=== PATIENT | female | born 1960 | race Caucasian/White ===

== ENCOUNTER 2020-03-31 16:35 | Outpatient (CLI) | payer MEDICARE, MEDICAID, SELFPAY ==
--- NOTE | ~2020-03-31 | CT_ITS ---
EXAMINATION:CT lung screening DATE: 03/31/2020 16:58 INDICATION: Personal history of nicotine dependence. Smoker who quit 2 years ago with 37 pack year hi story. TECHNIQUE: Computed tomography (CT) of the chest was performed without intravenous contrast. Automate d exposure control and iterative reconstruction technique were employed. The dose-length product (DLP ) was 450.75 mGy-cm. COMPARISON: None. FINDINGS: There is mild atelectasis bilaterally. There is a 4 mm nodule in right lower lobe. Calcifie d subcarinal lymph nodes are consistent with old granulomatous disease. No pleural effusion. The hear t size is normal. There are coronary artery calcifications. No pericardial effusion. There is diffuse hepatic steatosis. There are changes of cholecystectomy. There is mild thoracic spondylosis. IMPRESSION: 1. Lung-RADS category 2: Benign appearance or behavior. Continue annual screening with noncontrast lo w-dose chest CT in 12 months. Reviewed, dictated and finalized at location A. IMPRESSION: 1. Lung-RADS category 2: Benign appearance or behavior. Continue annual screeni ng with noncontrast low-dose chest CT in 12 months.
== END 2020-03-31 16:36 | disposition home or self-care (01) ==
PROVIDERS: PCP Emergency Medicine; Visit Provider Emergency Medicine
DX: Z12.2 Encounter for screening for malignant neoplasm of respiratory organs (principal); Z87.891 Personal history of nicotine dependence
CPT/HCPCS: G0297

== ENCOUNTER 2020-06-23 16:43 | Outpatient (CLI) | payer MEDICARE, SELFPAY ==
--- NOTE | ~2020-06-23 | MM_ITS ---
EXAMINATION: MM screening anu BI w luana HISTORY: Screening TECHNIQUE: Craniocaudal and mediolateral oblique 3-D tomosynthesis images were obtained and synthetic 2-D images were generated. CAD analysis was submitted and interpreted. COMPARISON: Comparison to multiple prior studies sequentially, with oldest reviewed study dated 05/2014. BREAST PARENCHYMAL COMPOSITION: There are scattered areas of fibroglandular density. FINDINGS: There is no evidence of suspicious mass, calcification, or architectural distortion to sugg est malignancy in either breast. There has been no suspicious interval change. IMPRESSION: 1. No mammographic evidence of malignancy. 2. Recommend routine screening mammography in one year. BI-RADS Category 1: Negative Reviewed, dictated and finalized at location A.
== END 2020-06-23 16:44 | disposition home or self-care (01) ==
LOC: ANHIMG 16:45
PROVIDERS: PCP Emergency Medicine; Visit Provider Emergency Medicine
DX: Z12.31 Encounter for screening mammogram for malignant neoplasm of breast (principal)
CPT/HCPCS: 77063; 77067

== ENCOUNTER 2020-08-05 13:24 | Outpatient (CLI) | payer MEDICARE, SELFPAY ==
--- NOTE | ~2020-08-05 | DEXA_ITS ---
Bone Density Report Name: Jade Hunter Age: 60 Sex: Female Ethnicity: White Date of : 1960 Indication: postmenopausal; height loss; Referring Provider: ERON TORRES Study: Bone densitometry was performed. Exam Date: August 05, 2020 Accession number: [id number] Bone Density: Region BMD T-score Z-score Classification AP Spine (L1-L4) 1.000 -0.4 1.0 Normal Femoral Neck (Left) 0.651 -1.8 -0.5 Osteopenia Total Hip (Left) 0.936 0.0 0.9 Normal Total Hip Bilateral Avg 0.916 -0.2 0.8 Normal Femoral Neck (Right) 0.647 -1.8 -0.5 Osteopenia Total Hip (Right) 0.895 -0.4 0.6 Normal World Health Organization criteria for BMD impression classify patients as: Normal (T-score at or above -1.0), Osteopenia (T-score between -1.0 and -2.5), or Osteoporosis (T-score at or below -2.5). 10-year Fracture Risk(1): Major Osteoporotic Fracture 7.8% Hip Fracture 0.8% Reported Risk Factors: [place] (), Neck BMD=0.647, BMI=42.2 (1) FRAX(R) Version 3.08. Fracture probability calculated for an untreated patient. Fracture probability may be lower if the patient has received treatment. Previous Exams: Region Exam Age BMD T-score BMD Change BMD Change Date g/cm2 vs Baseline vs Previous AP Spine(L1-L4) 08/05/2020 60 1.000 -0.4 -0.030(-2.9%)# -0.030(-2.9%)# 04/21/2015 54 1.030 -0.2 Total Hip(Left) 08/05/2020 60 0.936 0.0 -0.083(-8.1%)# -0.083(-8.1%)# 04/21/2015 54 1.019 0.6 Total Hip(Right) 08/05/2020 60 0.895 -0.4 -0.105(-10.5%) -0.105(-10.5%) 04/21/2015 54 1.000 0.5 *Denotes significance at 95% confidence level, LSC for AP Spine = 0.022 g/cm2, LSC for Total Hip = 0.027 g/cm2 Clinical Information Provided by Patient: Patient maximum height was 67 Menopause Age: 53 Does not regularly consume dairy products Drinks caffeinated beverages Onset of menses at age 16 Number of children 3 Impression: The patient has low bone mass, based on the Left Femoral Neck T-score. The patient has an estimated ten-year risk of hip fracture of 0.8% and an estimated ten-year risk of major fracture of 7.8%, based on the WHO FRAX algorithm. No significant bone loss was observed. Discussion: BONE DENSITY IS LOW AT ONE OR MORE SKELETAL SITES. This patient's lowest T-score is low at one or more skeletal sites. It meets the World Health Organization's (WHO) criteria for ?low bone mass? (T-score between -1.0 and -2.5). The patient's 10-year risk of
== END 2020-08-05 13:25 | disposition home or self-care (01) ==
PROVIDERS: PCP Emergency Medicine; Visit Provider Emergency Medicine
DX: Z78.0 Asymptomatic menopausal state (principal); M85.852 Other specified disorders of bone density and structure, left thigh; M85.851 Other specified disorders of bone density and structure, right thigh
CPT/HCPCS: 77080

== ENCOUNTER 2021-08-24 09:21 | Outpatient (CLI) | payer MEDICARE, SELFPAY ==
--- NOTE | ~2021-08-24 | MM_ITS ---
EXAMINATION: MM screening anu BI w luana HISTORY: Screening mammogram TECHNIQUE: Craniocaudal and mediolateral oblique 3-D tomosynthesis images were obtained and synthetic 2-D images were generated. CAD analysis was submitted and interpreted. COMPARISON: 06/23, 01/06/2019 bilateral screening mammogram examinations] BREAST PARENCHYMAL COMPOSITION: The breasts are almost entirely fatty. FINDINGS: There is no evidence of suspicious mass, calcification, or architectural distortion to sugg est malignancy in either breast. There has been no suspicious interval change. IMPRESSION: 1. No mammographic evidence of malignancy. 2. Recommend routine screening mammography in one year. BI-RADS Category 1: Negative Reviewed, dictated and finalized at location A. [employer]
== END 2021-08-24 09:22 | disposition home or self-care (01) ==
LOC: ANHIMG 09:24
PROVIDERS: PCP Emergency Medicine; Visit Provider Emergency Medicine
DX: Z12.31 Encounter for screening mammogram for malignant neoplasm of breast (principal)
CPT/HCPCS: 77063; 77067

== ENCOUNTER 2022-12-25 15:10 | Outpatient (CLI) | payer MEDICARE, SELFPAY ==
--- NOTE | ~2022-12-25 | MM_ITS ---
EXAMINATION: MM screening anu BI w luana HISTORY: Screening mammogram TECHNIQUE: Craniocaudal and mediolateral oblique 3-D tomosynthesis images were obtained and synthetic 2-D images were generated. CAD analysis was submitted and interpreted. COMPARISON: 08/24/2021, 06/23/2020, 01/06/2019 bilateral screening mammogram examinations BREAST PARENCHYMAL COMPOSITION: The breasts are almost entirely fatty. FINDINGS: There is no evidence of suspicious mass, calcification, or architectural distortion to sugg est malignancy in either breast. There has been no suspicious interval change. IMPRESSION: 1. No mammographic evidence of malignancy. 2. Recommend routine screening mammography in one year. BI-RADS Category 1: Negative Reviewed, dictated and finalized at location A.
== END 2022-12-25 15:11 | disposition home or self-care (01) ==
LOC: ANHIMG 15:13
PROVIDERS: PCP Emergency Medicine; Visit Provider Emergency Medicine
DX: Z12.31 Encounter for screening mammogram for malignant neoplasm of breast (principal)
CPT/HCPCS: 77063; 77067

== ENCOUNTER 2023-04-13 08:26 | Outpatient (CLI) | payer MEDICARE, SELFPAY ==
--- NOTE | ~2023-04-13 | NM_ITS ---
EXAMINATION: NM daniel stress w perfusion DATE: 04/13/2023 12:08 INDICATION: Chest pain TECHNIQUE: Rest images were obtained following intravenous administration of 10.5 mCi Tc99m tetrofosm in (Myoview). The patient was infused intravenously with Lexiscan (Regadenoson). Then, 31.7 mCi Tc99m tetrofosmin (Myoview) was administered intravenously, and stress images were obtained. Data was yin nstructed into short axis and horizontal and vertical long axis SPECT images. Gated SPECT images were also obtained. COMPARISON: None. FINDINGS: There is no definite reversible or fixed perfusion abnormality to suggest ischemia or infar ction. There is normal left ventricular chamber size, wall motion and ejection fraction. Left ventr icular ejection fraction measures 65%. IMPRESSION: 1. Normal myocardial perfusion at rest and during stress. 2. Left ventricular ejection fraction measuring 65%. Reviewed, dictated and finalized at location A.
--- NOTE | 2023-04-13 08:33 | ECHO_ITS ---
Patient Info Name: Jade Hunter Age: 62 years : 1960 Gender: Female Ht: 64 in Wt: 230 lbs BSA: 2.22 m2 HR: 71 bpm BP: 101 / 68 mmHg Technical Quality: Fair Exam Date: 04/13/2023 8:47 AM Exam Location: [facility] Pulmonary Patient Status: Outpatient Admit Date: 04/13/2023 Staff Ordering Physician: Mark Carolina DO Automatic Riveting Machine Operator: Maine Clemente RDCS Attending Provider: Mark Carolina DO Referring Physician: Ge SARMIETNO; Exam Type: CA echo doppler color flow Study Info Indications R06.09 - Other forms of dyspnea Complete two-dimensional, color flow and Doppler transthoracic echocardiogram is performed. Summary 1. Complete two-dimensional, color flow and Doppler transthoracic echocardiogram is performed. 2. Left ventricular chamber dimension is mildly enlarged. 3. Left ventricular systolic function is preserved, estimated at 50-55%. 4. The left ventricular diastolic function is grade I diastolic dysfunction. 5. E/e' 8 is minimally elevated. 6. Global longitudinal strain is abnormal at -14.5%. 7. No pulmonary hypertension, estimated pulmonary arterial systolic pressure is 33 mmHg. Left Ventricle E/e' 8 is minimally elevated. Left ventricular systolic function is preserved, estimated at 50-55%. Global longitudinal strain is abnormal at -14.5%. Left ventricular chamber dimension is mildly enlarged. The left ventricular diastolic function is grade I diastolic dysfunction. Right Ventricle Right ventricular systolic function is normal and with normal TAPSE 2.0 cm. Right ventricular chamber dimension is normal. Left Atria Left atrial chamber dimension is normal. Right Atria Right atrial chamber dimension is normal. Aortic Valve The aortic valve is trileaflet. There is no aortic valve stenosis. There is no aortic valve regurgitation. Pulmonic Valve There is no pulmonic regurgitation. Mitral Valve There is no mitral valve stenosis. There is no mitral valve regurgitation. Tricuspid Valve There is no tricuspid valve regurgitation. No pulmonary hypertension, estimated pulmonary arterial systolic pressure is 33 mmHg. Pericardium/Pleural There is no pericardial effusion. Inferior Vena Cava Normal inferior vena cava with >50% collapse upon inspiration consistent with normal right atrial pressure, 5 mmHg. Aorta The aortic root size at the sinus of Valsalva is normal. Left Ventricular Outflow Tract Name Value Normal LVOT 2D LVOT Diameter 2.0 cm LVOT Doppler LVOT Peak Gradient 4 mmHg LVOT Mean Gradient 2 mmHg LVOT VTI 23 cm LVOT VTI/AV VTI Ratio 0.9 LVOT Stroke Volume 68 ml LVOT CO 4.4 l/min LVOT CI 2.0 l/min/m2 Pulmonic Valve Name Value Normal RVOT Doppler RVOT Peak Gradient 2 mmHg PV Doppler -
--- NOTE | 2023-04-13 08:33 | EST_ITS ---
Patient Info Name: Jade Hunter Age: 62 years : 1960 Gender: Female Ht: 64 in Wt: 230 lbs BSA: 2.22 m2 HR: 68 bpm BP: 108 / 73 mmHg Heart Rhythm: Sinus Rhythm Exam Date: 04/13/2023 10:41 AM Exam Location: [facility] Stress Patient Status: Outpatient Admit Date: 04/13/2023 Staff Ordering Physician: Mark Carolina DO Attending Provider: Mark Carolina DO Exercise Technologist: Aisha Hayes CT Exercise Physician: Mark Carolina DO Exam Type: CA stress daniel w NM Study Info Indications R07.89 - Other chest pain A regadenoson stress test was performed. Summary 1. 1. Negative lexiscan stress test for ischemic ST changes by ECG criteria. 2. 2. Stable hemodynamics throughout the test. 3. 3. Nuclear scan to follow and will be reported separately. Please correlate with it. 4. 4. Patient informed of the above results. Protocol: Lexiscan Stress ECG Details Stage: REST Duration (min): 3 min : 17 sec HR (bpm): 73 SBP (mmHg): 108 DBP (mmHg): 73 Stage: REST Duration (min): 8 min : 31 sec HR (bpm): 72 SBP (mmHg): 108 DBP (mmHg): 73 Stage: STAGE 1 Duration (min): 0 min : 59 sec HR (bpm): 83 SBP (mmHg): 106 DBP (mmHg): 68 Stage: RECOVERY Duration (min): 1 min : 0 sec HR (bpm): 90 SBP (mmHg): 106 DBP (mmHg): 68 Stage: RECOVERY Duration (min): 2 min : 0 sec HR (bpm): 86 SBP (mmHg): 106 DBP (mmHg): 68 Stage: RECOVERY Duration (min): 3 min : 0 sec HR (bpm): 86 SBP (mmHg): 108 DBP (mmHg): 65 Stage: RECOVERY Duration (min): 3 min : 1 sec HR (bpm): 86 SBP (mmHg): 108 DBP (mmHg): 65 Rest HR: 72 bpm Peak HR: 93 bpm Rest Sys BP: 108 mmHg Peak Sys BP: 108 mmHg Max Pred HR: 158 bpm % Max Pred HR: 59 % Target HR: 134 bpm Max RPP: 10,044 bpm*mmHg Termination Reason: Completed protocol Cardiac Symptoms: None Total Time: 1 min : 0 sec Rest [place] BP: 73 mmHg Peak [place] BP: 65 mmHg Total Dose: 0.4 mg Resting ECG Sinus rhythm. Stress ECG No ST changes. Arrhythmias None. Report Signatures
== END 2023-04-13 08:27 | disposition home or self-care (01) ==
LOC: ANHCARD 08:28
PROVIDERS: PCP Emergency Medicine; Visit Provider Internal Medicine Cardiovascular Disease
DX: R07.9 Chest pain, unspecified (principal)
CPT/HCPCS: 78452; 93017; 93306; A9502; J2785

== ENCOUNTER 2025-02-26 10:39 | Outpatient (CLI) | payer MEDICARE, MEDICAID, SELFPAY ==
--- NOTE | ~2025-02-26 | CT_ITS ---
CT Scan of the Chest without Contrast: Clinical Indication: Lung cancer screening, nicotine dependence Technique: Contiguous sections were acquired throughout the chest without intravenous contrast. Dose reduction technique was used on this scan by utilizing automated exposure control and iterative recon struction technique. The dose-length product (DLP) was 443.30 mGy-cm. Findings: There is no evidence of any significant mediastinal, hilar or axillary lymphadenopathy. The mediastin al soft tissues appear normal. There is no evidence of pleural or pericardial effusion. The lungs are clear. No pulmonary nodules or infiltrates are noted. Images through the upper abdomen reveal no abnormalities. Impression: Lung RADS 1: Negative. 12 month follow-up screening CT advised. Reviewed, dictated and finalized at location . Impression: Lung RADS 1: Negative. 12 month follow-up screening CT advised.
--- OUTSIDE RECORDS SUMMARY | 2025-02-26 10:45 | XMS_ITS | Clinical Summary ---
Author Organization [address] Address [address] [place] [id number] Care Team Providers Care Cinder Block Maker Name Role Phone Esau Pascual MD Primary Care Provider + [phone] Veronica Minaya MD Unavailable [phone] Allergies No known active allergies Medications ALPRAZolam (XANAX) 1 mg tablet Take 1 tablet (1 mg total) by mouth 2 (two) times a day 0 Active gabapentin (NEURONTIN) 600 mg tablet Take 1 tablet (600 mg total) by mouth daily before breakfast 6 Active HYDROcodone-acet aminophen (NORCO) 10-325 mg per tablet Take by mouth every 8 hours 6 Active lisinopriL (PRINIVIL,ZESTRI L) 20 mg tablet Take 1 tablet (20 mg total) by mouth daily 0 Active omeprazole (PriLOSEC) 40 mg capsule Take 1 tablet by mouth daily 6 Active sertraline (ZOLOFT) 100 mg tablet Take 1 tablet (100 mg total) by mouth daily 6 Active OneTouch Verio Flex meter miscIndications: Type 2 diabetes mellitus with hyperglycemia, with long-term current use of insulin ([facility]) One glucometer 1 each 3 Active AOMiTouch Verio test strips stripIndications :Type 2 diabetes mellitus with hyperglycemia, with long-term current use of insulin ([facility]) Check 2 x daily 100 each 11 3 Active AOMiTouch Delica Lancets 30 gauge miscIndications: Type 2 diabetes mellitus with hyperglycemia, with long-term current use of insulin ([facility]) Check blood sugar two times a day or as directed 100 each 11 3 Active ergocalciferol (VITAMIN D) 50,000 unit capsule TAKE 1 CAPSULE BY MOUTH EVERY SUNDAY AT 9AM 12 capsule 11 3 Active blood-glucose transmitter (Dexcom G6 Transmitter) deviceIndication s:Type 2 diabetes mellitus with hyperglycemia, with long-term current use of insulin ([facility]) Change every 90 days 1 each 3 3 Active Additional Information Patient not taking.Reported on 07/01/2024 pen needle, diabetic (Pen Needle) 31 gauge x 5/16 needleIndication s:Type 2 diabetes mellitus with hyperglycemia, with long-term current use of insulin ([facility]) Use to inject 1 time daily as directed 100 each 11 4 Active atorvastatin (LIPITOR) 40 mg tabletIndication s:Hyperlipidemia associated with type 2 diabetes mellitus (HCC) TAKE ONE TABLET BY MOUTH DAILY AT 5 PM 90 tablet 3 4 Active rosuvastatin (CRESTOR) 20 mg tablet 4 Active LANTUS 100 unit/mL (3 mL) pen for injectionIndicat ions:Type 2 diabetes mellitus with hyperglycemia, with long-term current use of insulin ([facility]) INJECT 35 UNITS UNDER THE SKIN DAILY 30 mL 6 4 07/14/20 25 Active blood-glucose meter,continuous (Dexcom G7 Breeder Service Technician) miscIndications: Type 2 diabetes mellitus with hyperglycemia, with long-term current use of insulin ([facility]) Change every 90 days 1 each 4 Active glimepiride (AMARYL) 2 mg tabletIndication s:Type 2 diabetes mellitus with hyperglycemia, with long-term current use of insulin ([facility]) Take 1 tablet (2 mg total) by mouth 2 (two) times a day with meals 180 tablet 3 5 10/21/19 26 Active blood-glucose sensor deviceIndication s:Type 2 diabetes mellitus with hyperglycemia, with long-term current use of insulin ([facility]) Change every 10 day s 3 each 5 Active empagliflozin (Jardiance) 25 mg tabletIndication s:Type 2 diabetes mellitus with hyperglycemia, with long-term current use of insulin ([facility]) Take one tablet by mouth daily 90 tablet 3 5 Active Active Problems Problem Noted Date Diagnosed [...] months Assessment & Plan (11/01/2023 10:02 AM EMPLOYEE COUNSELOR): Chronic, improving control A1c 5.7% Not wearing [...] MALLIKA Daily foot care Advise to see Coach Wirer for foot callus Follow up in 6 months Assessment & Plan (02/23/2022 12:31 PM CDT): Chronic problem, not at goal. Increase Ozempic to 1 mg. Continue same other medications. She is going to start walking with her granddaughter. Update routine labs today. Assessment & Plan (09/15/2021 3:28 PM EMPLOYEE COUNSELOR): Chronic condition, improved. Encouraged her to continue [...] on diet - check blood sugars at [facility] - make an eye exam soon - follow up in 3 months Assessment & Plan (08/16/2020 12:21 PM EMPLOYEE COUNSELOR): Chronic, uncontrolled , improving control since 12/2019 A1c today - 7.7 % - discussed about DM type 2, - patho physiology, short and long term care social worker complications of uncontrolled DM, diet and exercise [...] 08/16/2020 Assessment & Plan (11/01/2023 10:03 AM EMPLOYEE COUNSELOR): Pt on Vitamin D replacement therapy Recheck levels, further plans based on it Assessment & Plan (02/23/2022 12:29 PM CDT): Update vitamin D level. Assessment & Plan (01/17/2021 9:12 PM CDT): Restart taking Vitamin D replacement therapy Recheck levels, further plans based on it Assessment & Plan (08/16/2020 12:20 PM EMPLOYEE COUNSELOR): Very low vitamin D 25 (OH) levels In december 2019 Start pt on replacement therapy Hypertension associated with diabetes 08/16/2020 Assessment & Plan (07/01/2024 2:22 PM CDT): Chronic, well controlled Continue lisinopril Assessment & Plan (11/01/2023 10:02 AM EMPLOYEE COUNSELOR): Chronic, well controlled Continue current medication regimen Assessment & Plan (01/15/2023 12:17 PM CDT): Chronic, well controlled Continue current medication regimen Assessment & Plan (02/23/2022 12:28 PM CDT): Controlled on current medications, no changes. Assessment & Plan (09/15/2021 3:24 PM EMPLOYEE COUNSELOR): Controlled on current medications, no changes. Assessment & Plan (05/09/2021 2:53 PM CDT): Chronic, well controlled Continue current medication regimen Assessment & Plan (01/17/2021 9:10 PM CDT): Chronic, well controlled Continue current medication regimen Assessment & Plan (08/16/2020 12:19 PM EMPLOYEE COUNSELOR): Chronic, well controlled Continue current medication regimen Hyperlipidemia associated with type 2 diabetes no lutz 08/16/2020 Assessment & Plan (07/01/2024 2:21 PM CDT): C/w Atorvastatin 40 mg oral daily Assessment & Plan (11/01/2023 10:03 AM EMPLOYEE COUNSELOR): C/w Atorvastatin 40 mg oral daily Assessment & Plan (01/15/2023 12:17 PM CDT): C/w Atorvastatin 40 mg oral daily Assessment & Plan (02/23/2022 12:28 PM CDT): Chronic problem. On statin therapy, no changes. Update lipid panel. Assessment & Plan (09/15/2021 3:24 PM EMPLOYEE COUNSELOR): Chronic problem. On statin therapy, no changes. Assessment & Plan (05/09/2021 2:53 PM CDT): C/w Atorvastatin 40 mg oral daily Assessment & Plan (01/17/2021 9:09 PM CDT): Reviewed lipid panel results today LLD above goal Change simvastatin to Atorvastatin 40 mg oral daily Assessment & Plan (08/16/2020 12:22 PM EMPLOYEE COUNSELOR): On statin therapy Tolerating well Morbid obesity [...] weekly Assessment & Plan (11/01/2023 10:03 AM EMPLOYEE COUNSELOR): Chronic, worsening Counseled on diet and exercise [...] weekly Assessment & Plan (08/16/2020 12:22 PM EMPLOYEE COUNSELOR): Chronic, worsening Discussed about healthy lifestyle habits [...] plans Assessment & Plan (08/16/2020 12:27 PM EMPLOYEE COUNSELOR): Reviewed pt last thyroid labs from Low [...] Increase Ozempic. Body mass index 40.0-44.9, adult ([facility]) 02/23/2022 07/01/2024 Encounters Date Type Department Care Team Description 12/11/2024 Telephone [facility] Diabetes and Endocrinology [address] [place] [phone] Veronica Minaya MD [facility] 12/08/2024 Telephone [facility] Diabetes and Endocrinology [address] [place] [phone] Veronica Minaya MD refill request from Last 3 Months Immunizations Immunization Administration [...] on file Legal Sex Female 1:58 AM EMPLOYEE COUNSELOR Gender Identity Not on file Sexual Orientation [...] 1:12 PM CDT Height 162.6 cm (5' 4 ) 07/01/2024 1:12 PM CDT Body Mass Index [...] 2010 Depression Screening 05/09/2022 05/09/2021, 01/17/2021, 08/16/2020 Albumin Creatinine Ratio, Urine 11/01/2024 11/01/2023, 10/23/2022, 10/23/2022, Additional history exists Lipid Panel 11/01/2024 11/01/2023, 01/0 06/2023, 05/16/2022, Additional history exists eGFR 11/01/2024 11/01/2023, 01/0 06/2023, 05/16/2022, Additional history exists Hemoglobin A1C 12/29/2024 07/01/2024, 10/15, 01/15/2023, Additional history exists Dilated Eye Exam 03/05/2025 03/05/2024 Influenza Vaccine (Season Ended) 2025 09/02/2015, 07/29/2013, 05/15/2010 Foot Exam 07/01/2025 07/01/2024, 10/15, 01/15/2023, Additional history exists Procedures Procedure Name Priority Date/Time Associated Diagnosis Comments POCT HEMOGLOBIN A1C Routine 07/01/2024 1 :14 PM CDT Type 2 diabetes mellitus with hyperglycemia, with long-term current use of insulin (HCC) DIABETES EYE EXAM Routine 03/05/2024 9:30 AM CDT EGFR Routine 11/01/2023 10:07 AM EMPLOYEE COUNSELOR Type 2 diabetes mellitus with hyperglycemia, with long-term current use of insulin (HCC) Hypertension associated with diabetes (HCC) Hyperlipidemia associated with type 2 diabetes mellitus (HCC) LIPID PANEL Routine 11/01/2023 10:07 AM EMPLOYEE COUNSELOR Type 2 diabetes mellitus with hyperglycemia, with long-term current use of insulin (HCC) Hyperlipidemia associated with type 2 diabetes mellitus (HCC) ALBUMIN CREATININE RATIO, URINE Routine 11/01/2023 10:07 AM EMPLOYEE COUNSELOR Type 2 diabetes mellitus with hyperglycemia, with [...] - Final * eGFR (11/01/2023 10:07 AM EMPLOYEE COUNSELOR) eGFR 76 mL/min/1. 73 m2 GATITO HIRSCH [...] reviewed 2021. Blood 11/01/2023 10:0 7 AM EMPLOYEE COUNSELOR 11/01/2023 12:27 PM EMPLOYEE COUNSELOR Veronica Diaz MD LAB BLOOD ORDERABLE S Final Result Performing Organization Address [facility] Co de Phone Number GATITO [address] [address] [place] [address] * Albumin Creatinine Ratio, Urine (11/01/2023 10:07 AM EMPLOYEE COUNSELOR) Albumin Ur <12.0 mg/L G[facility]ITO Comment: Interpretive Data No reference range established. Current interpretive data was last revised 2019. Creatinine Ur 115.3 mg/dL G[facility]O Comment: Interpretive Data No reference range established. Current interpretive data was last revised 2019. Albumin Creatinine Ratio, Ur <10 1 - 29 mg/g [facility] Urine 11/01/2023 10:0 7 AM EMPLOYEE COUNSELOR 11/01/2023 12:17 PM EMPLOYEE COUNSELOR Veronica Diaz MD LAB URINE ORDERABLE S Final Result Performing Organization Address [facility] Co de Phone Number GATITO [address] [place] [address] * Lipid panel (11/01/2023 10:07 AM EMPLOYEE COUNSELOR) Cholesterol 124 30 - 199 mg/dL GATITO [...] Pediatrics 2011;128:S213 2. NCEP Expert Panel. Circulation 2003;110:227 Current Interpretive Data was last revised on [...] Pediatrics 2011;128:S213 2. NCEP Expert Panel. Circulation 2003;110:227 Current Interpretive Data was last revised on 2018. HDL 45 >=40 mg/dL G[facility]ITO Comment: Interpretive Data Ages < or = 19 years Acceptable: >45 mg/dL Borderline low: 40-45 mg/dL Low: <40 mg/dL Ages > or = 20 years Desirable: >or= 60 mg/dL Low: <40 mg/dL Literature References: 1. Expert Panel on Integrated Guidelines for Cardiovascular Health and Risk Reduction in Children and Adolescents. Pediatrics 2011;128:S213 2. NCEP Expert Panel. Circulation 2003;110:227 Current Interpretive Data was last revised on 2018. LDL, calculated 56 <=129 mg/dL G[facility]O Comment: Interpretive Data Ages < [...] GATITO HIRSCH Blood 11/01/2023 10:0 7 AM EMPLOYEE COUNSELOR 11/01/2023 12:17 PM EMPLOYEE COUNSELOR us Harleyja Joe Diaz MD LAB BLOOD ORDERABLE S Final Result GATITO HIRSCH [id number] [place] [address] from Last 3 Months or Most Recently Relevant to Health Maintenance [place] [address] [place] [address] Care Teams Cinder Block Maker Relationship Specialty Start Date End Date Esau Pascual MD PCP - General 05/01/11 [place] [id number] [address] [facility] [address] [place] [address] Consulting Physician Endocrinology 03/07/21
--- OUTSIDE RECORDS SUMMARY | 2025-02-26 10:45 | XMS_ITS | Clinical Summary ---
Author Organization [facility] Address [address] [place] [address] Phone Care Team Providers Care Inspector Watch Train Name Role Phone Esau Pascual Primary Care Provider [phone] Allergies No known active allergies Medications ALPRAZolam [...] 1:15 PM CDT Height 167.6 cm (5' 6 ) 04/09/2019 1:15 PM CDT Body Mass Index [...] of 2) 2010 Influenza Immunization (#1) 2024 07/29/2013 SARS-COV-2 Immunization ( - 2023-25 season) 2024 Respiratory Syncytial Virus (RSV) Immunization [...] to complete this topic Insurance MEDICARE C [employer] Care Teams Inspector Watch Train Relationship Specialty Start Date End Date Ankur Esua [address] [place] [address] PCP - General Family Medicine 02/27/19
--- OUTSIDE RECORDS SUMMARY | 2025-02-26 10:45 | XMS_ITS | Referral Summary ---
Author Organization [address] Address [address] [place] [phone] Care Team Providers Care Senior Ux Designer Name Role Phone Esau Pascual MD Primary Care Provider + [phone] Veronica Minaya MD Unavailable + [phone] Encounters Date Type Department Care Team Description 12/11/2024 Telephone [facility] Diabetes and Endocrinology [address] [place] [phone] Veronica Minaya MD [facility] 12/08/2024 Telephone [facility] Diabetes and Endocrinology [address] [place] [phone] Veronica Minaya MD refill request from Last 3 Months Allergies No known [...] mg total) by mouth daily 6 Active Jack ErwinToQyuki Verio Flex meter miscIndications: Type 2 diabetes mellitus with hyperglycemia, with long-term current use of insulin ([facility]) One glucometer 1 each 3 Active Jack ErwinTouch Verio test strips stripIndications :Type 2 diabetes mellitus with hyperglycemia, with long-term current use of insulin ([facility]) Check 2 x daily 100 each 3 Active Jack ErwinTouch Delica Lancets 30 gauge miscIndications: Type 2 diabetes mellitus with hyperglycemia, with long-term current use of insulin ([facility]) Check blood sugar two times a day or as directed 100 each 11 3 Active ergocalciferol (VITAMIN D) 50,000 unit capsule TAKE 1 CAPSULE BY MOUTH EVERY SUNDAY AT 9AM 12 capsule 11 3 Active blood-glucose transmitter (Dexcom G6 Transmitter) deviceIndication s:Type 2 diabetes mellitus with hyperglycemia, with long-term current use of insulin ([facility]) Change every 90 days 1 each 3 3 Active Additional Information Patient not taking.Reported on 07/01/2024 pen needle, diabetic (Pen Needle) 31 gauge x 5/16 needleIndication s:Type 2 diabetes mellitus with hyperglycemia, with long-term current use of insulin ([facility]) Use to inject 1 time daily as directed 100 each 4 Active atorvastatin (LIPITOR) 40 mg tabletIndication s:Hyperlipidemia associated with type 2 diabetes mellitus ([facility]) TAKE ONE TABLET BY MOUTH DAILY AT 5 PM 90 tablet 3 4 Active rosuvastatin (CRESTOR) 20 mg tablet 4 Active LANTUS 100 unit/mL (3 mL) pen for injectionIndicat ions:Type 2 diabetes mellitus with hyperglycemia, with long-term current use of insulin ([facility]) INJECT 35 UNITS UNDER THE SKIN DAILY 30 mL 6 4 07/14/20 25 Active blood-glucose meter,continuous (Dexcom G7 Log Scaler) miscIndications: Type 2 diabetes mellitus with hyperglycemia, with long-term current use of insulin ([facility]) Change every 90 days 1 each 4 Active glimepiride (AMARYL) 2 mg tabletIndication s:Type 2 diabetes mellitus with hyperglycemia, with long-term current use of insulin ([facility]) Take 1 tablet (2 mg total) by [...] long-term current use of insulin (HCC) Take one tablet by mouth daily 90 [...] months Assessment & Plan (11/01/2023 10:02 AM WARDROBE ATTENDANT): Chronic, improving control A1c 5.7% Not wearing [...] MALLIKA Daily foot care Advise to see Nursing Consultant for foot callus Follow up in 6 months Assessment & Plan (02/23/2022 12:31 PM CDT): Chronic problem, not at goal. Increase Ozempic to 1 mg. Continue same other medications. She is going to start walking with her granddaughter. Update routine labs today. Assessment & Plan (09/15/2021 3:28 PM WARDROBE ATTENDANT): Chronic condition, improved. Encouraged her to continue [...] on diet - check blood sugars at po - make an eye exam soon - follow up in 3 months Assessment & Plan (08/16/2020 12:21 PM WARDROBE ATTENDANT): Chronic, uncontrolled , improving control since 12/2019 A1c today - 7.7 % - discussed about DM type 2, - patho physiology, short and emt intermediate complications of uncontrolled DM, diet and exercise [...] 08/16/2020 Assessment & Plan (11/01/2023 10:03 AM WARDROBE ATTENDANT): Pt on Vitamin D replacement therapy Recheck levels, further plans based on it Assessment & Plan (02/23/2022 12:29 PM CDT): Update vitamin D level. Assessment & Plan (01/17/2021 9:12 PM CDT): Restart taking Vitamin D replacement therapy Recheck levels, further plans based on it Assessment & Plan (08/16/2020 12:20 PM WARDROBE ATTENDANT): Very low vitamin D 25 (OH) levels In december 2019 Start pt on replacement therapy Hypertension associated with diabetes 08/16/2020 Assessment & Plan (07/01/2024 2:22 PM CDT): Chronic, well controlled Continue lisinopril Assessment & Plan (11/01/2023 10:02 AM WARDROBE ATTENDANT): Chronic, well controlled Continue current medication regimen Assessment & Plan (01/15/2023 12:17 PM CDT): Chronic, well controlled Continue current medication regimen Assessment & Plan (02/23/2022 12:28 PM CDT): Controlled on current medications, no changes. Assessment & Plan (09/15/2021 3:24 PM WARDROBE ATTENDANT): Controlled on current medications, no changes. Assessment & Plan (05/09/2021 2:53 PM CDT): Chronic, well controlled Continue current medication regimen Assessment & Plan (01/17/2021 9:10 PM CDT): Chronic, well controlled Continue current medication regimen Assessment & Plan (08/16/2020 12:19 PM WARDROBE ATTENDANT): Chronic, well controlled Continue current medication regimen Hyperlipidemia associated with type 2 diabetes no lutz 08/16/2020 Assessment & Plan (07/01/2024 2:21 PM CDT): C/w Atorvastatin 40 mg oral daily Assessment & Plan (11/01/2023 10:03 AM WARDROBE ATTENDANT): C/w Atorvastatin 40 mg oral daily Assessment & Plan (01/15/2023 12:17 PM CDT): C/w Atorvastatin 40 mg oral daily Assessment & Plan (02/23/2022 12:28 PM CDT): Chronic problem. On statin therapy, no changes. Update lipid panel. Assessment & Plan (09/15/2021 3:24 PM WARDROBE ATTENDANT): Chronic problem. On statin therapy, no changes. Assessment & Plan (05/09/2021 2:53 PM CDT): C/w Atorvastatin 40 mg oral daily Assessment & Plan (01/17/2021 9:09 PM CDT): Reviewed lipid panel results today LLD above goal Change simvastatin to Atorvastatin 40 mg oral daily Assessment & Plan (08/16/2020 12:22 PM WARDROBE ATTENDANT): On statin therapy Tolerating well Morbid obesity with BMI of 40.0-44.9, adult 0 11/2019 Assessment & Plan (07/01/2024 2:22 PM [...] weekly Assessment & Plan (11/01/2023 10:03 AM WARDROBE ATTENDANT): Chronic, worsening Counseled on diet and exercise [...] weekly Assessment & Plan (08/16/2020 12:22 PM WARDROBE ATTENDANT): Chronic, worsening Discussed about healthy lifestyle habits [...] plans Assessment & Plan (08/16/2020 12:27 PM WARDROBE ATTENDANT): Reviewed pt last thyroid labs from Low [...] Increase Ozempic. Body mass index 40.0-44.9, adult ([facility]) 02/23/2022 07/01/2024 Immunizations Immunization Administration Dates Next [...] on file Legal Sex Female 1:58 AM WARDROBE ATTENDANT Gender Identity Not on file Sexual Orientation [...] AM CDT EGFR Routine 11/01/2023 10:07 AM WARDROBE ATTENDANT Type 2 diabetes mellitus with hyperglycemia, with long-term current use of insulin (HCC) Hypertension associated with diabetes (HCC) Hyperlipidemia associated with type 2 diabetes mellitus (HCC) LIPID PANEL Routine 11/01/2023 10:07 AM WARDROBE ATTENDANT Type 2 diabetes mellitus with hyperglycemia, with long-term current use of insulin (HCC) Hyperlipidemia associated with type 2 diabetes mellitus (HCC) ALBUMIN CREATININE RATIO, URINE Routine 11/01/2023 10:07 AM WARDROBE ATTENDANT Type 2 diabetes mellitus with hyperglycemia, with [...] DIABETES EYE EXAM (03/05/2024 9:30 AM CDT) [facility] Provider HEALTH MAINTENANCE Edited Result - Final * eGFR (11/01/2023 10:07 AM WARDROBE ATTENDANT) eGFR 76 mL/min/1. 73 m2 GATITO HIRSCH [...] reviewed 2021. Blood 11/01/2023 10:0 7 AM WARDROBE ATTENDANT 11/01/2023 12:27 PM WARDROBE ATTENDANT Veronica Diaz MD LAB BLOOD ORDERABLE S Final Result Performing Organization Address [facility] Co de Phone Number GATITO [address] [address] [place] [address] * Albumin Creatinine Ratio, Urine (11/01/2023 10:07 AM WARDROBE ATTENDANT) Albumin Ur <12.0 mg/L [facility]O Comment: Interpretive Data No reference range established. Current interpretive data was last revised 2019. Creatinine Ur 115.3 mg/dL G[facility]O Comment: Interpretive Data No reference range established. Current interpretive data was last revised 2019. Albumin Creatinine Ratio, Ur <10 1 - 29 mg/g [facility] Urine 11/01/2023 10:0 7 AM WARDROBE ATTENDANT 11/01/2023 12:17 PM WARDROBE ATTENDANT Veronica Diaz MD LAB URINE ORDERABLE S Final Result Performing Organization Address [facility] Co de Phone Number GATITO HIRSCH [id number] [address] [facility] [place] [address] * Lipid panel (11/01/2023 10:07 AM WARDROBE ATTENDANT) Cholesterol 124 30 - 199 mg/dL [facility] Comment: Interpretive Data Ages < or = [...] on 2018. Non-HDL Cholesterol 79 mg/dL G[facility]O Comment: Interpretive Data Ages < [...] GATITO HIRSCH Blood 11/01/2023 10:0 7 AM WARDROBE ATTENDANT 11/01/2023 12:17 PM WARDROBE ATTENDANT us Veronica Diaz MD LAB BLOOD ORDERABLE S Final Result GATITO [id number] [address] [facility] [place] [address] from Last 3 Months or Most Recently Relevant to Health Maintenance [facility] Address: [facility] [id number] [place] [id number] Care Teams Senior Ux Designer Relationship Specialty Start Date End Date Esau Pascual MD PCP - General 05/01/11 [place] [id number] [address] [facility] [address] [place] [address] Consulting Physician Endocrinology 03/07/21
== END 2025-02-26 10:40 | disposition home or self-care (01) ==
PROVIDERS: PCP Emergency Medicine; Visit Provider Emergency Medicine
DX: Z12.2 Encounter for screening for malignant neoplasm of respiratory organs (principal); Z87.891 Personal history of nicotine dependence
CPT/HCPCS: 71271

== ENCOUNTER 2025-03-16 08:35 | Outpatient (CLI) | payer MEDICARE, MEDICAID, SELFPAY ==
--- OUTSIDE RECORDS SUMMARY | 2025-03-16 08:47 | XMS_ITS | CONTINUITY OF CARE DOCUMENT ---
Author Name leigha ahuja Address Unknown Organization [facility] Address [address] [facility] [address] [place] [address] Phone [phone] Care Team Providers Care Gastroenterology Teacher Name Role Phone leigha ahuja Unavailable Unavailable INSURANCE PROVIDERS Payer name Policy type / Coverage type Check red republican [employer] [facility] Medicaid 0 [id number]
--- OUTSIDE RECORDS SUMMARY | 2025-03-16 08:48 | XMS_ITS | Referral Summary ---
Author Organization [facility] Address [address] [place] [id number] Care Team Providers Care Applications System Analyst Name Role Phone Esau Pascual MD Primary Care Provider + [phone] Veronica Minaya MD Unavailable [phone] Allergies No known active allergies Medications ALPRAZolam [...] hyperglycemia, with long-term current use of insulin ([facility]) One glucometer 1 each 3 Active RecensusTouch Verio test strips stripIndications :Type 2 diabetes mellitus with hyperglycemia, with long-term current use of insulin ([facility]) Check 2 x daily 100 each 11 3 Active OneTouch Delica Lancets 30 gauge miscIndications: Type 2 diabetes mellitus with hyperglycemia, with long-term current use of insulin ([facility]) Check blood sugar two times a day or as directed 100 each 11 3 Active ergocalciferol (VITAMIN D) 50,000 unit capsule TAKE 1 CAPSULE BY MOUTH EVERY SUNDAY AT 9AM 12 capsule 11 3 Active blood-glucose transmitter (Dexcom G6 Transmitter) deviceIndication s:Type 2 diabetes mellitus with hyperglycemia, with long-term current use of insulin ([facility]) Change every 90 days 1 each 3 3 Active Additional Information Patient not taking.Reported on 07/01/2024 pen needle, diabetic (Pen Needle) 31 gauge x 5/16 needleIndication s:Type 2 diabetes mellitus with hyperglycemia, with long-term current use of insulin ([facility]) Use to inject 1 time [...] hyperglycemia, with long-term current use of insulin ([facility]) INJECT 35 UNITS UNDER THE SKIN DAILY 30 mL 6 4 07/14/20 25 Active blood-glucose meter,continuous (Dexcom G7 Dry Cleaning Supervisor) miscIndications: Type 2 diabetes mellitus with hyperglycemia, with long-term current use of insulin ([facility]) Change every 90 days 1 each 4 Active glimepiride (AMARYL) 2 mg tabletIndication s:Type 2 diabetes mellitus with hyperglycemia, with long-term current use of insulin ([facility]) Take 1 tablet (2 mg total) by mouth 2 (two) times a day with meals 180 tablet 3 5 10/21/19 26 Active blood-glucose sensor deviceIndication s:Type 2 diabetes mellitus with hyperglycemia, with long-term current use of insulin ([facility]) Change every 10 day s 3 each 5 Active empagliflozin (Jardiance) 25 mg tabletIndication s:Type 2 diabetes mellitus with hyperglycemia, with long-term current use of insulin ([facility]) Take one tablet by mouth daily 90 [...] months Assessment & Plan (11/01/2023 10:02 AM RADIUS CORNER MACHINE OPERATOR): Chronic, improving control A1c 5.7% Not wearing [...] MALLIKA Daily foot care Advise to see Music Store Manager for foot callus Follow up in 6 months Assessment & Plan (02/23/2022 12:31 PM CDT): Chronic problem, not at goal. Increase Ozempic to 1 mg. Continue same other medications. She is going to start walking with her granddaughter. Update routine labs today. Assessment & Plan (09/15/2021 3:28 PM RADIUS CORNER MACHINE OPERATOR): Chronic condition, improved. Encouraged her to continue [...] on diet - check blood sugars at [facility] - make an eye exam soon - follow up in 3 months Assessment & Plan (08/16/2020 12:21 PM RADIUS CORNER MACHINE OPERATOR): Chronic, uncontrolled , improving control since 12/2019 A1c today - 7.7 % - discussed about DM type 2, - patho physiology, short and lobsterman complications of uncontrolled DM, diet and exercise [...] 08/16/2020 Assessment & Plan (11/01/2023 10:03 AM RADIUS CORNER MACHINE OPERATOR): Pt on Vitamin D replacement therapy Recheck levels, further plans based on it Assessment & Plan (02/23/2022 12:29 PM CDT): Update vitamin D level. Assessment & Plan (01/17/2021 9:12 PM CDT): Restart taking Vitamin D replacement therapy Recheck levels, further plans based on it Assessment & Plan (08/16/2020 12:20 PM RADIUS CORNER MACHINE OPERATOR): Very low vitamin D 25 (OH) levels In december 2019 Start pt on replacement therapy Hypertension associated with diabetes 08/16/2020 Assessment & Plan (07/01/2024 2:22 PM CDT): Chronic, well controlled Continue lisinopril Assessment & Plan (11/01/2023 10:02 AM RADIUS CORNER MACHINE OPERATOR): Chronic, well controlled Continue current medication regimen Assessment & Plan (01/15/2023 12:17 PM CDT): Chronic, well controlled Continue current medication regimen Assessment & Plan (02/23/2022 12:28 PM CDT): Controlled on current medications, no changes. Assessment & Plan (09/15/2021 3:24 PM RADIUS CORNER MACHINE OPERATOR): Controlled on current medications, no changes. Assessment & Plan (05/09/2021 2:53 PM CDT): Chronic, well controlled Continue current medication regimen Assessment & Plan (01/17/2021 9:10 PM CDT): Chronic, well controlled Continue current medication regimen Assessment & Plan (08/16/2020 12:19 PM RADIUS CORNER MACHINE OPERATOR): Chronic, well controlled Continue current medication regimen Hyperlipidemia associated with type 2 diabetes no lutz 08/16/2020 Assessment & Plan (07/01/2024 2:21 PM CDT): C/w Atorvastatin 40 mg oral daily Assessment & Plan (11/01/2023 10:03 AM RADIUS CORNER MACHINE OPERATOR): C/w Atorvastatin 40 mg oral daily Assessment & Plan (01/15/2023 12:17 PM CDT): C/w Atorvastatin 40 mg oral daily Assessment & Plan (02/23/2022 12:28 PM CDT): Chronic problem. On statin therapy, no changes. Update lipid panel. Assessment & Plan (09/15/2021 3:24 PM RADIUS CORNER MACHINE OPERATOR): Chronic problem. On statin therapy, no changes. Assessment & Plan (05/09/2021 2:53 PM CDT): C/w Atorvastatin 40 mg oral daily Assessment & Plan (01/17/2021 9:09 PM CDT): Reviewed lipid panel results today LLD above goal Change simvastatin to Atorvastatin 40 mg oral daily Assessment & Plan (08/16/2020 12:22 PM RADIUS CORNER MACHINE OPERATOR): On statin therapy Tolerating well Morbid obesity [...] weekly Assessment & Plan (11/01/2023 10:03 AM RADIUS CORNER MACHINE OPERATOR): Chronic, worsening Counseled on diet and exercise [...] weekly Assessment & Plan (08/16/2020 12:22 PM RADIUS CORNER MACHINE OPERATOR): Chronic, worsening Discussed about healthy lifestyle habits [...] plans Assessment & Plan (08/16/2020 12:27 PM RADIUS CORNER MACHINE OPERATOR): Reviewed pt last thyroid labs from [facility] [...] Increase Ozempic. Body mass index 40.0-44.9, adult (CMS/[facility]) 02/23/2022 07/01/2024 Immunizations Immunization Administration [...] on file Legal Sex Female 1:58 AM RADIUS CORNER MACHINE OPERATOR Gender Identity Not on file Sexual Orientation [...] AM CDT EGFR Routine 11/01/2023 10:07 AM RADIUS CORNER MACHINE OPERATOR Type 2 diabetes mellitus with hyperglycemia, with long-term current use of insulin ([facility]) Hypertension associated with diabetes (HCC) Hyperlipidemia associated with type 2 diabetes mellitus (HCC) LIPID PANEL Routine 11/01/2023 10:07 AM RADIUS CORNER MACHINE OPERATOR Type 2 diabetes mellitus with hyperglycemia, with long-term current use of insulin (HCC) Hyperlipidemia associated with type 2 diabetes mellitus (HCC) ALBUMIN CREATININE RATIO, URINE Routine 11/01/2023 10:07 AM RADIUS CORNER MACHINE OPERATOR Type 2 diabetes mellitus with hyperglycemia, with [...] DIABETES EYE EXAM (03/05/2024 9:30 AM CDT) Pamela Sewell MD HEALTH MAINTENANCE Edited Result - Final * eGFR (11/01/2023 10:07 AM RADIUS CORNER MACHINE OPERATOR) eGFR 76 mL/min/1. 73 m2 [facility] [...] reviewed 2021. Blood 11/01/2023 10:0 7 AM RADIUS CORNER MACHINE OPERATOR 11/01/2023 12:27 PM RADIUS CORNER MACHINE OPERATOR Veronica Diaz MD LAB BLOOD ORDERABLE S Final Result [facility] [id number] Department [place] [address] * Albumin Creatinine Ratio, Urine (11/01/2023 10:07 AM RADIUS CORNER MACHINE OPERATOR) Albumin Ur <12.0 mg/L [facility] Comment: Interpretive Data No reference range established. Current interpretive data was last revised 2019. Creatinine Ur 115.3 mg/dL [facility] Comment: Interpretive Data No reference range established. Current interpretive data was last revised 2019. Albumin Creatinine Ratio, Ur <10 1 - 29 mg/[facility] Urine 11/01/2023 10:0 7 AM RADIUS CORNER MACHINE OPERATOR 11/01/2023 12:17 PM RADIUS CORNER MACHINE OPERATOR us Veronica Diaz MD LAB URINE ORDERABLE S Final Result [facility] [address] Department [place] [address] * Lipid panel (11/01/2023 10:07 AM RADIUS CORNER MACHINE OPERATOR) Cholesterol 124 30 - 199 mg/dL [facility] Comment: Interpretive Data Ages < or = [...] revised on 2018. Chol/HDL ratio 3 [facility] Blood 11/01/2023 10:0 7 AM RADIUS CORNER MACHINE OPERATOR 11/01/2023 12:17 PM RADIUS CORNER MACHINE OPERATOR Veronica Diaz MD LAB BLOOD ORDERABLE S Final Result [facility] [id number] [address] Department [place] [address] from Last 3 Months or Most Recently Relevant to Health Maintenance Insurance [employer] [facility] [employer] Care Teams Applications System Analyst Relationship Specialty Start Date End Date Esau Pascual MD PCP - General 05/01/11 [place] [address] [place] [address] Consulting Physician Endocrinology 03/07/21
--- OUTSIDE RECORDS SUMMARY | 2025-03-16 08:48 | XMS_ITS | Clinical Summary ---
Author Organization [facility] Address [address] [place] [address] Phone Care Team Providers Care Ferry Terminal Agent Name Role Phone Esau Pascual Primary Care Provider [phone] Allergies No known active allergies Medications ALPRAZolam [...] complete this topic Insurance [place] [address] Care Teams Ferry Terminal Agent Relationship Specialty Start Date End Date Ankur Esau [address] [place] [address] PCP - General Family Medicine 02/27/19
--- OUTSIDE RECORDS SUMMARY | 2025-03-16 08:48 | XMS_ITS | Clinical Summary ---
Author Organization [facility] Address [address] [place] [phone] Care Team Providers Care Research Instrumentation Technician Name Role Phone Esau Pascual MD Primary Care Provider [phone] Veronica Minaya MD Unavailable [phone] Allergies No known active allergies Medications ALPRAZolam [...] hyperglycemia, with long-term current use of insulin ([facility]) One glucometer 1 each 3 Active SightlogixTouch Verio test strips stripIndications :Type 2 diabetes mellitus with hyperglycemia, with long-term current use of insulin ([facility]) Check 2 x daily 100 each 11 3 Active OneTouch Delica Lancets 30 gauge miscIndications: Type 2 diabetes mellitus with hyperglycemia, with long-term current use of insulin ([facility]) Check blood sugar two times a day or as directed 100 each 11 3 Active ergocalciferol (VITAMIN D) 50,000 unit capsule TAKE 1 CAPSULE BY MOUTH EVERY SUNDAY AT 9AM 12 capsule 11 3 Active blood-glucose transmitter (Dexcom G6 Transmitter) deviceIndication s:Type 2 diabetes mellitus with hyperglycemia, with long-term current use of insulin ([facility]) Change every 90 days 1 each 3 3 Active Additional Information Patient not taking.Reported on 07/01/2024 pen needle, diabetic (Pen Needle) 31 gauge x 5/16 needleIndication s:Type 2 diabetes mellitus with hyperglycemia, with long-term current use of insulin ([facility]) Use to inject 1 time daily as [...] hyperglycemia, with long-term current use of insulin ([facility]) INJECT 35 UNITS UNDER THE SKIN DAILY 30 mL 6 4 07/14/20 25 Active blood-glucose meter,continuous (Dexcom G7 Marine Rigger) miscIndications: Type 2 diabetes mellitus with hyperglycemia, with long-term current use of insulin ([facility]) Change every 90 days 1 each 4 Active glimepiride (AMARYL) 2 mg tabletIndication s:Type 2 diabetes mellitus with hyperglycemia, with long-term current use of insulin ([facility]) Take 1 tablet (2 mg total) by mouth 2 (two) times a day with meals 180 tablet 3 5 10/21/19 26 Active blood-glucose sensor deviceIndication s:Type 2 diabetes mellitus with hyperglycemia, with long-term current use of insulin ([facility]) Change every 10 day s 3 each 5 Active empagliflozin (Jardiance) 25 mg tabletIndication s:Type 2 diabetes mellitus with hyperglycemia, with long-term current use of insulin ([facility]) Take one tablet by mouth daily 90 [...] months Assessment & Plan (11/01/2023 10:02 AM THEATRICAL RIGGER): Chronic, improving control A1c 5.7% Not wearing [...] MALLIKA Daily foot care Advise to see Ecologist Technician for foot callus Follow up in 6 months Assessment & Plan (02/23/2022 12:31 PM CDT): Chronic problem, not at goal. Increase Ozempic to 1 mg. Continue same other medications. She is going to start walking with her granddaughter. Update routine labs today. Assessment & Plan (09/15/2021 3:28 PM THEATRICAL RIGGER): Chronic condition, improved. Encouraged her to continue [...] on diet - check blood sugars at [facility] - make an eye exam soon - follow up in 3 months Assessment & Plan (08/16/2020 12:21 PM THEATRICAL RIGGER): Chronic, uncontrolled , improving control since 12/2019 A1c today - 7.7 % - discussed about DM type 2, - patho physiology, short and exterminator termite complications of uncontrolled DM, diet and exercise [...] 08/16/2020 Assessment & Plan (11/01/2023 10:03 AM THEATRICAL RIGGER): Pt on Vitamin D replacement therapy Recheck levels, further plans based on it Assessment & Plan (02/23/2022 12:29 PM CDT): Update vitamin D level. Assessment & Plan (01/17/2021 9:12 PM CDT): Restart taking Vitamin D replacement therapy Recheck levels, further plans based on it Assessment & Plan (08/16/2020 12:20 PM THEATRICAL RIGGER): Very low vitamin D 25 (OH) levels In december 2019 Start pt on replacement therapy Hypertension associated with diabetes 08/16/2020 Assessment & Plan (07/01/2024 2:22 PM CDT): Chronic, well controlled Continue lisinopril Assessment & Plan (11/01/2023 10:02 AM THEATRICAL RIGGER): Chronic, well controlled Continue current medication regimen Assessment & Plan (01/15/2023 12:17 PM CDT): Chronic, well controlled Continue current medication regimen Assessment & Plan (02/23/2022 12:28 PM CDT): Controlled on current medications, no changes. Assessment & Plan (09/15/2021 3:24 PM THEATRICAL RIGGER): Controlled on current medications, no changes. Assessment & Plan (05/09/2021 2:53 PM CDT): Chronic, well controlled Continue current medication regimen Assessment & Plan (01/17/2021 9:10 PM CDT): Chronic, well controlled Continue current medication regimen Assessment & Plan (08/16/2020 12:19 PM THEATRICAL RIGGER): Chronic, well controlled Continue current medication regimen Hyperlipidemia associated with type 2 diabetes no lutz 08/16/2020 Assessment & Plan (07/01/2024 2:21 PM CDT): C/w Atorvastatin 40 mg oral daily Assessment & Plan (11/01/2023 10:03 AM THEATRICAL RIGGER): C/w Atorvastatin 40 mg oral daily Assessment & Plan (01/15/2023 12:17 PM CDT): C/w Atorvastatin 40 mg oral daily Assessment & Plan (02/23/2022 12:28 PM CDT): Chronic problem. On statin therapy, no changes. Update lipid panel. Assessment & Plan (09/15/2021 3:24 PM THEATRICAL RIGGER): Chronic problem. On statin therapy, no changes. Assessment & Plan (05/09/2021 2:53 PM CDT): C/w Atorvastatin 40 mg oral daily Assessment & Plan (01/17/2021 9:09 PM CDT): Reviewed lipid panel results today LLD above goal Change simvastatin to Atorvastatin 40 mg oral daily Assessment & Plan (08/16/2020 12:22 PM THEATRICAL RIGGER): On statin therapy Tolerating well Morbid obesity [...] weekly Assessment & Plan (11/01/2023 10:03 AM THEATRICAL RIGGER): Chronic, worsening Counseled on diet and exercise [...] weekly Assessment & Plan (08/16/2020 12:22 PM THEATRICAL RIGGER): Chronic, worsening Discussed about healthy lifestyle habits [...] plans Assessment & Plan (08/16/2020 12:27 PM THEATRICAL RIGGER): Reviewed pt last thyroid labs from [facility] [...] Increase Ozempic. Body mass index 40.0-44.9, adult (CMS/[facility]) 02/23/2022 07/01/2024 Immunizations Immunization Administration Dates Next [...] on file Legal Sex Female 1:58 AM THEATRICAL RIGGER Gender Identity Not on file Sexual Orientation [...] AM CDT EGFR Routine 11/01/2023 10:07 AM THEATRICAL RIGGER Type 2 diabetes mellitus with hyperglycemia, with long-term current use of insulin (HCC) Hypertension associated with diabetes (HCC) Hyperlipidemia associated with type 2 diabetes mellitus (HCC) LIPID PANEL Routine 11/01/2023 10:07 AM THEATRICAL RIGGER Type 2 diabetes mellitus with hyperglycemia, with long-term current use of insulin (HCC) Hyperlipidemia associated with type 2 diabetes mellitus (HCC) ALBUMIN CREATININE RATIO, URINE Routine 11/01/2023 10:07 AM THEATRICAL RIGGER Type 2 diabetes mellitus with hyperglycemia, with [...] - Final * eGFR (11/01/2023 10:07 AM THEATRICAL RIGGER) eGFR 76 mL/min/1. 73 m2 [facility] [...] reviewed 2021. Blood 11/01/2023 10:0 7 AM THEATRICAL RIGGER 11/01/2023 12:27 PM THEATRICAL RIGGER Veronica Diaz MD LAB BLOOD ORDERABLE S Final Result Performing Organization Address [facility] Co de Phone Number [facility] [address] [address] [facility] [place] [address] * Albumin Creatinine Ratio, Urine (11/01/2023 10:07 AM THEATRICAL RIGGER) Albumin Ur <12.0 mg/L [facility] Comment: Interpretive Data No reference range established. Current interpretive data was last revised 2019. Creatinine Ur 115.3 mg/dL [facility] Comment: Interpretive Data No reference range established. Current interpretive data was last revised 2019. Albumin Creatinine Ratio, Ur <10 1 - 29 mg/g [facility] Urine 11/01/2023 10:0 7 AM THEATRICAL RIGGER 11/01/2023 12:17 PM THEATRICAL RIGGER Veronica Diaz MD LAB URINE ORDERABLE S Final Result Performing Organization Address [facility] de Phone Number [facility] [address] [address] [facility] [place] [address] * Lipid panel (11/01/2023 10:07 AM THEATRICAL RIGGER) Cholesterol 124 30 - 199 mg/dL [facility] [...] 2018. LDL, calculated 56 <=129 mg/dL [facility] Comment: Interpretive Data Ages < or = [...] [facility] Blood 11/01/2023 10:0 7 AM THEATRICAL RIGGER 11/01/2023 12:17 PM THEATRICAL RIGGER us Veronica Diaz MD LAB BLOOD ORDERABLE S Final Result [facility] [address] [address] Department [place] [address] from Last 3 Months or Most Recently Relevant to Health Maintenance Insurance [facility] MEDIC[facility] Address: [facility] [id number] [place] [phone] Care Teams Research Instrumentation Technician Relationship Specialty Start Date End Date Esau Pascual MD PCP - General 05/01/11 [place] [address] [address] [place] [address] Consulting Physician Endocrinology 03/07/21
[2025-03-16 09:33] LABS: Add Urine Microscopic? YES; Appearance Urine Clear (Clear); Bacteria Urine 2+ /hpf; Bilirubin Urine Negative (Negative); Blood Urine Negative (Negative); Budding Yeast Urine Present /hpf; Color Urine Yellow (Yellow); Glucose Urine UA 3+ mg/dL (Negative); Ketones Urine Negative (Negative); Leukocyte Esterase Ur Negative LEU/UL (Negative); Need Manual Microscopic Reviewed; Nitrate Urine Positive (Negative); Non Pathogenic Casts 0-2; Protein Urine Negative (Negative); Specific Grav Ur 1.042 (1.001-1.035); Squamous Epithelial Cell Urine Occasional /hpf (Few); Urobilinogen Urine 0.2 mg/dL (<2.0); pH Urine 5.5 (5.0-9.0)
[2025-03-16 09:57] LABS: Thyroid Stimulating Hormone Reflex < 0.015 uIU/mL (0.465-4.68)
[2025-03-16 10:29] LABS: Free T4 Free Thyroxine Reflex 3.44 ng/dL (0.78-2.19)
[2025-03-18 12:34] LABS: Thyroglobulin Ab. 644 IU/mL (< or = 1); Thyroid Peroxidase Antibodies. 4 IU/mL (<9)
== END 2025-03-16 08:36 | disposition home or self-care (01) ==
LOC: ANHLAB 08:37
PROVIDERS: PCP Emergency Medicine; Visit Provider Emergency Medicine
DX: E05.90 Thyrotoxicosis, unspecified without thyrotoxic crisis or storm (principal); R35.0 Frequency of micturition
CPT/HCPCS: 36415; 81001; 84439; 84443; 84445; 86376; 86800; 87086; 87181

== ENCOUNTER 2025-04-07 12:04 | Outpatient (CLI) | payer MEDICARE, MEDICAID, SELFPAY ==
--- NOTE | ~2025-04-07 | US_ITS ---
EXAMINATION: US thyroid DATE: 04/07/2025 12:21 INDICATION: Thyrotoxicosis TECHNIQUE: Multiple ultrasound images of the thyroid were obtained. COMPARISON: None. FINDINGS: The right thyroid lobe measures 5.3 x 1.5 x 1.8 cm. The left thyroid lobe measures 4.9 x 1.7 x 1.7 c m. 1.2 cm solid hypoechoic wider than tall nodule with smooth to ill-defined margins in the left thy roid lobe without echogenic foci. (TI-RADS 4, moderately suspicious , FNA if >=1.5 cm, annual followu p is >=1 cm). There is an 8 mm mixed solid and cystic nodule with isoechoic solid component, smooth m argins and without echogenic foci in the superior right thyroid lobe. (TI-RADS 2, not suspicious, no FNA recommended). There is heterogeneous echogenicity with coarsened echotexture and mildly increased vascular flow throughout both thyroid lobes which could be seen with thyroiditis. IMPRESSION: 1. A couple thyroid nodules including a 1.2 cm Ti RADS 4 left thyroid nodule for which annual ultraso und follow-up would be recommended. 2. Heterogeneous echogenicity with coarsened echotexture and increased vascular flow on color Doppler throughout the thyroid which can be seen with thyroiditis. Reviewed, dictated and finalized at location A. IMPRESSION: 1. A couple thyroid nodules including a 1.2 cm Ti RADS 4 left thyroid nodule fo r which annual ultrasound follow-up would be recommended. 2. Heterogeneous echogenicity with coarsened echotexture and increased vascular flow on color Doppler throughout the thyroid which can be seen with thyroiditi s.
== END 2025-04-07 12:05 | disposition home or self-care (01) ==
LOC: MICIMG 12:06
PROVIDERS: PCP Internal Medicine Endocrinology, Diabetes & Metabolism; Visit Provider Emergency Medicine
DX: E05.90 Thyrotoxicosis, unspecified without thyrotoxic crisis or storm (principal)
CPT/HCPCS: 76536

== ENCOUNTER 2025-05-21 03:28 | Day surgery (SDC) | payer MEDICARE, MEDICAID, SELFPAY ==
--- NOTE | 2024-12-17 11:42 | PC.NURSE ---
Patient called multiple times >7 including listed contacts with no response. Dr. Coy office attempted to contact and still no response. Messages have been left when mailbox is not full. Pt is canceled and will need to reschedule in office.
--- OUTSIDE RECORDS SUMMARY | 2024-12-18 00:53 | XMS_ITS | CONTINUITY OF CARE DOCUMENT ---
Author Name leigha ahuja Address Unknown Organization [facility] Address [address] [place] [address] Phone [phone] Care Team Providers Care Service Worker Name Role Phone leigha ahuja Unavailable Unavailable INSURANCE PROVIDERS Payer name Policy type / Coverage type [place] [employer] Medicaid 0 [id number]
--- OUTSIDE RECORDS SUMMARY | 2024-12-18 00:53 | XMS_ITS | Clinical Summary ---
Author Organization [facility] Address [address] [place] [id number] Care Team Providers Care Community Recreation Programmer Name Role Phone Esau Pascual MD Primary Care Provider [phone] Veronica Minaya MD Unavailable [phone] Allergies No known active allergies Medications ALPRAZolam (XANAX) 1 mg tablet Take 1 tablet (1 mg total) by mouth 2 (two) times a day 0 Active gabapentin (NEURONTIN) 600 mg tablet Take 1 tablet (600 mg total) by mouth daily before breakfast 6 Active HYDROcodone-lilia taminophen (NORCO) 10-325 mg per tablet Take by mouth every 8 hours 6 Active lisinopriL (PRINIVIL,ZESTR IL) 20 mg tablet Take 1 tablet (20 mg total) by mouth daily 0 Active omeprazole (PriLOSEC) 40 mg capsule Take 1 tablet by mouth daily 6 Active sertraline (ZOLOFT) 100 mg tablet Take 1 tablet (100 mg total) by mouth daily 6 Active OneTouch Verio Flex meter miscIndications :Type 2 diabetes mellitus with hyperglycemia, with long-term current use of insulin ([facility]) One glucometer 1 each 3 Active OneTouch Verio test strips stripIndication s:Type 2 diabetes mellitus with hyperglycemia, with long-term current use of insulin ([facility]) Check 2 x daily 100 each 11 3 Active OneTouch Delica Lancets 30 gauge miscIndications :Type 2 diabetes mellitus with hyperglycemia, with long-term current use of insulin (HCC) Check blood sugar two times a day or as directed 100 each 3 Active ergocalciferol (VITAMIN D) 50,000 unit capsule TAKE 1 CAPSULE BY MOUTH EVERY SUNDAY AT 9AM 12 capsule 3 Active blood-glucose transmitter (Dexcom G6 Transmitter) deviceIndicatio ns:Type 2 diabetes mellitus with hyperglycemia, with long-term current use of insulin (HCC) Change every 90 days 1 each 3 3 Active Additional Information Patient not taking.Reported on 07/01/2024 pen needle, diabetic (Pen Needle) 31 gauge x 16 needleIndicatio ns:Type 2 diabetes mellitus with hyperglycemia, with long-term current use of insulin ([facility]) Use to inject 1 time daily as directed 100 each 11 4 Active empagliflozin (Jardiance) 25 mg tabletIndicatio ns:Type 2 diabetes mellitus with hyperglycemia, with long-term current use of insulin ([facility]) TAKE ONE TABLET BY MOUTH DAILY AT 9 AM 90 tablet 3 4 Active atorvastatin (LIPITOR) 40 mg tabletIndicatio ns:Hyperlipidem ia associated with type 2 diabetes mellitus (HCC) TAKE ONE TABLET BY MOUTH DAILY AT 5 PM 90 tablet 3 4 Active rosuvastatin (CRESTOR) 20 mg tablet 4 Active Mounjaro 5 mg/0.5 mL pen injectorIndicat ions:Type 2 diabetes mellitus with hyperglycemia, with long-term current use of insulin ([facility]) Inject 5 mg under the skin every 7 days 6 mL 5 4 025 Active LANTUS 100 unit/mL (3 mL) pen for injectionIndica tions:Type 2 diabetes mellitus with hyperglycemia, with long-term current use of insulin ([facility]) INJECT 35 UNITS UNDER THE SKIN DAILY 30 mL 6 4 025 Active blood-glucose meter,continuou s (Dexcom G7 Carpenter Helper) miscIndications :Type 2 diabetes mellitus with hyperglycemia, with long-term current use of insulin (HCC) Change every 90 days 1 each 4 Active glimepiride (AMARYL) 2 mg tabletIndicatio ns:Type 2 diabetes mellitus with hyperglycemia, with long-term current use of insulin (HCC) Take 1 tablet (2 mg total) by mouth 2 (two) times a day with meals 180 tablet 3 5 026 Active blood-glucose sensor deviceIndicatio ns:Type 2 diabetes mellitus with hyperglycemia, with long-term current use of insulin (HCC) Change every 10 day s 3 each 5 Active blood-glucose sensor deviceIndicatio ns:Type 2 diabetes mellitus with hyperglycemia, with long-term current use of insulin (HCC) Change every 10 day s 3 each 3 025 Discontin ued(Reord er) Active Problems Problem Noted Date Diagnosed Date Type 2 diabetes mellitus wit h hyperglycemia, with long-term current use of insulin 08/16/2020 Assessment & Plan (07/01/2024 2:22 PM CDT): Chronic, uncontrolled, worsening Hemoglobin A1c 10.6% Goal A1c at least less than 7% Counseled on diet and exercise Advised to work on stress management Recommend below medication regimen - restart taking Lantus 16 units SQ daily , after one week increase to 35 units SQ daily - start Mounjaro 2.5 mg SQ weekly for 4 weeks and increase to 5 mg SQ weekly - keep taking Jardiance and glimepiride the same - advise good oral hydration - get back on DEXCOM G 7 Follow up in 3 months Assessment & Plan (11/01/2023 10:02 AM PARKING METER INSTALLER): Chronic, improving control A1c 5.7% Not wearing DEXCOM G 7 - waiting for her supply Increase ozempic to 2 mg SQ weekly - decrease glimepiride to 2 mg oral twice daily with food ( and stop if having low blood sugars ) Continue your lantus dose and farixga Keep exercising Include healthier options with your food Make eye exam appointment soon Assessment & Plan (01/15/2023 12:21 PM CDT): Chronic, uncontrolled, improving significantly A1c - 7.4 % Overall fairly well controlled Counseled on diet and exercise Continue Lantus Pen 35 units SQ daily, Glimepiride 4 mg oral BID , farxiga 10 mg oral daily , Ozempic 1 mg SQ weekly Gave free sample for Freestyle kirsten 3 today and sent in a script to pt pharmacy Advised pt to make an eye exam MALLIKA Daily foot care Advise to see Fueler for foot callus Follow up in 6 months Assessment & Plan (02/23/2022 12:31 PM CDT): Chronic problem, not at goal. Increase Ozempic to 1 mg. Continue same other medications. She is going to start walking with her granddaughter. Update routine labs today. Assessment & Plan (09/15/2021 3:28 PM PARKING METER INSTALLER): Chronic condition, improved. Encouraged her to continue working on weight loss, let us know if any low blood sugars. No changes to medications today. Assessment & Plan (05/09/2021 2:53 PM CDT): Chronic, uncontrolled, worsening A1c today 7.6% Reviewed patient blood sugar log Start Ozempic 0.25 mg subQ weekly for 4 weeks then increase to 0.5 mg subQ weekly Continue rest all medications Counseled on diet and exercise Advised to work on portion, carb controlled diet Annual dilated eye exam Daily foot care Follow-up in 3 months Assessment & Plan (01/17/2021 9:12 PM CDT): Chronic, uncontrolled , improving control HbA1c - 7.3 % - continue current medication regimen - advise to Do labs - soon - work on loosing weight - exercise - watch portions on diet - check blood sugars at [facility] - make an eye exam soon - follow up in 3 months Assessment & Plan (08/16/2020 12:21 PM PARKING METER INSTALLER): Chronic, uncontrolled , improving control since 12/2019 A1c today - 7.7 % - discussed about DM type 2, - patho physiology, short and snf complications of uncontrolled DM, diet and exercise , importance on of BS monitoring, medications options - discussed goal BS and A1c targets - advise to start checking BS - before Meals and bedtime - advise to work on healthy diet, avoid processed foods , increase vegetables and protein and cut back on carb portions and also avoid fruit juices and regular soda and desserts - strongly advised to increase physical activity - start Farxiga 10 mg oral daily - advised good oral hydration - continue rest all medications the same - follow up in 3 months Vitamin D deficiency 08/16/2020 Assessment & Plan (11/01/2023 10:03 AM PARKING METER INSTALLER): Pt on Vitamin D replacement therapy Recheck levels, further plans based on it Assessment & Plan (02/23/2022 12:29 PM CDT): Update vitamin D level. Assessment & Plan (01/17/2021 9:12 PM CDT): Restart taking Vitamin D replacement therapy Recheck levels, further plans based on it Assessment & Plan (08/16/2020 12:20 PM PARKING METER INSTALLER): Very low vitamin D 25 (OH) levels In december 2019 Start pt on replacement therapy Hypertension associated with diabetes 08/16/2020 Assessment & Plan (07/01/2024 2:22 PM CDT): Chronic, well controlled Continue lisinopril Assessment & Plan (11/01/2023 10:02 AM PARKING METER INSTALLER): Chronic, well controlled Continue current medication regimen Assessment & Plan (01/15/2023 12:17 PM CDT): Chronic, well controlled Continue current medication regimen Assessment & Plan (02/23/2022 12:28 PM CDT): Controlled on current medications, no changes. Assessment & Plan (09/15/2021 3:24 PM PARKING METER INSTALLER): Controlled on current medications, no changes. Assessment & Plan (05/09/2021 2:53 PM CDT): Chronic, well controlled Continue current medication regimen Assessment & Plan (01/17/2021 9:10 PM CDT): Chronic, well controlled Continue current medication regimen Assessment & Plan (08/16/2020 12:19 PM PARKING METER INSTALLER): Chronic, well controlled Continue current medication regimen Hyperlipidemia associated with type 2 diabetes no lutz 08/16/2020 Assessment & Plan (07/01/2024 2:21 PM CDT): C/w Atorvastatin 40 mg oral daily Assessment & Plan (11/01/2023 10:03 AM PARKING METER INSTALLER): C/w Atorvastatin 40 mg oral daily Assessment & Plan (01/15/2023 12:17 PM CDT): C/w Atorvastatin 40 mg oral daily Assessment & Plan (02/23/2022 12:28 PM CDT): Chronic problem. On statin therapy, no changes. Update lipid panel. Assessment & Plan (09/15/2021 3:24 PM PARKING METER INSTALLER): Chronic problem. On statin therapy, no changes. Assessment & Plan (05/09/2021 2:53 PM CDT): C/w Atorvastatin 40 mg oral daily Assessment & Plan (01/17/2021 9:09 PM CDT): Reviewed lipid panel results today LLD above goal Change simvastatin to Atorvastatin 40 mg oral daily Assessment & Plan (08/16/2020 12:22 PM PARKING METER INSTALLER): On statin therapy Tolerating well Morbid obesity with BMI of 40.0-44.9, adult 11/2019 Assessment & Plan (07/01/2024 2:22 PM CDT): Chronic, above goal Discussed about healthy lifestyle habits advise to work on healthy diet, avoid processed foods , increase vegetables and protein and cut back on carb portions and also avoid fruit juices and regular soda and desserts Increase physical activity , recommend at least 150 min of aerobic activity per week and include resistance training 2 x weekly Assessment & Plan (11/01/2023 10:03 AM PARKING METER INSTALLER): Chronic, worsening Counseled on diet and exercise And work on sleep and stress management Assessment & Plan (05/09/2021 2:53 PM CDT): Chronic, slowly improving Counseled on diet and exercise Assessment & Plan (01/17/2021 9:10 PM CDT): Chronic, worsening Discussed about healthy lifestyle habits advise to work on healthy diet, avoid processed foods , increase vegetables and protein and cut back on carb portions and also avoid fruit juices and regular soda and desserts Increase physical activity , recommend at least 150 min of aerobic activity per week and include resistance training 2 x weekly Assessment & Plan (08/16/2020 12:22 PM PARKING METER INSTALLER): Chronic, worsening Discussed about healthy lifestyle habits advise to work on healthy diet, avoid processed foods , increase vegetables and protein and cut back on carb portions and also avoid fruit juices and regular soda and desserts Increase physical activity , recommend at least 150 min of aerobic activity per week and include resistance training 2 x weekly Abnormal thyroid function test 08/16/2020 Assessment & Plan (02/23/2022 12:29 PM CDT): Remote h/o mildly suppressed TSH. US showed heterogenous texture but no nodules. Will check TPO Ab and TSH today, but discussed that no treatment is warranted unless her thyroid function becomes abnormal. Assessment & Plan (05/09/2021 2:54 PM CDT): Repeat thyroid function tests before next visit Assessment & Plan (01/17/2021 9:10 PM CDT): Reviewed pt last thyroid labs from 12/2019 Low TSH and normal free T 4 levels Pt did not do labs that were ordered last time Plan to recheck pt thyroid functions test, based on that further plans Assessment & Plan (08/16/2020 12:27 PM PARKING METER INSTALLER): Reviewed pt last thyroid labs from Low TSH and normal free T 4 levels Plan to recheck pt thyroid functions test, based on that further plans Resolved Problems Problem Noted Date Diagnosed Date Resolved Date Morbid (severe) obesity due to excess calories 02/23/2022 07/01/2024 Assessment & Plan (01/15/2023 12:17 PM CDT): Counseled on diet and exercise Assessment & Plan (02/23/2022 12:30 PM CDT): Chronic problem, not at goal. Work on lifestyle. Increase Ozempic. Body mass index 40.0-44.9, adult ([facility]) 02/23/2022 07/01/2024 Encounters Date Type Department Care Team Description 12/11/2024 Telephone [facility] Diabetes and Endocrinology [address] [place] [phone] Veronica Minaya MD [facility] 12/08/2024 Telephone [facility] Diabetes and Endocrinology [address] [place] [phone] Veronica Minaya MD refill request 11/13/2024 Telephone [facility] [address] [phone] Veronica Minaya MD 10/09/2024 Telephone [facility] of [address] [phone] Veronica Minaya MD Forms/questionnaires ([facility] ) from Last 3 Months Immunizations Immunization Administration Dates Next Due Influenza, Split 05/15/2010 TD Preservative Free 05/15/2010 Surgical History Surgery Date Site/Laterality Comments OTHER SURGICAL HISTORY 10/15/1995 - 10/14/1996 Cholecystitis: Cholecystectomy OTHER SURGICAL HISTORY 10/15/1999 - 10/14/2000 Carpal tunnel syndrome: carpal tunnel release OTHER SURGICAL HISTORY : section (3) CATARACT EXTRACTION, BILATERAL TONSILLECTOMY Medical History Medical History Date Comments Hx Other Medical shoulder pain Hx Other Medical pain lower back Hx Other Medical pain in legs an d feet Hx Other Medical Cholecystitis Hx Other Medical Carpal tunnel s yndrome Depression Depression Anxiety disorder Anxiety Hx Other Medical Covid-19 Family History Medical History Relation Name Comments Hypertension Brother 1 Hypertension; Diabetes Brother 2 Diabetes mellit us; Coronary artery disease Father Rosie nary artery disease; Coronary artery disease Maternal Grandfather Coronary artery disease; Breast cancer Maternal Grandmother Cancer -breast; Stroke Maternal Grandmother Stroke; Diabetes Mother Diabetes mellit us; Hypertension Sister 1 Hypertension; Diabetes Sister 2 Diabetes mellit us; Relation Name Status Comments Brother 1 Brother 2 Father Maternal Grandfather Maternal Grandmother Mother Sister 1 Sister 2 Social History Tobacco Use Types Packs/Day Years Used Date Smoking Tobacco: Never Smokeless Tobacco: Never Alcohol Use Standard Drinks/Week Comments Not Currently 0 (1 standard drink = 0.6 oz pur e alcohol) PHQ-2 Answer Date Recorded PHQ-2 Total Score (If total score is 3 or more points, staff should administer the PHQ-9) 1 05/09/2021 Comments No Sex and Gender Information Value Date Recorded Sex Assigned at Not on file Legal Sex Female 1:58 AM PARKING METER INSTALLER Gender Identity Not on file Sexual Orientation Not on file Obstetrics History Last Filed Vital Signs Vital Sign Reading Time Taken Comments Blood Pressure 124/80 07/01/2024 1:12 PM CDT Pulse 95 07/01/2024 1:12 PM CDT Temperature - - Respiratory Rate 17 07/01/2024 1:12 PM CDT Oxygen Saturation - - Inhaled Oxygen Concentration - - Weight 107 kg (236 lb) 07/01/2024 1:12 PM CDT Height 162.6 cm (5' 4) 07/01/2024 1:12 PM CDT Body Mass Index 40.51 07/01/2024 1:12 PM CDT Plan of Treatment Health Maintenance Due Date Last Done Comments Breast Cancer Screening-Mammogram 1960 Cervical Cancer Screening 1960 Colon Cancer Screening-Colonoscopy 1960 Hepatitis C Screening 1960 Hepatitis B Screening 1978 Regular Well Visit/Exam 18-64 1978 Pneumococcal vaccine <65 (1 of 2 - PCV) 1979 DTaP/Tdap/Td Vaccine (1 - Tdap) 05/16/2010 0 Zoster Vaccine (1 of 2) 2010 Depression Screening 05/09/2022 05/09/2021, 01/17/2021, 08/16/2020 Influenza Vaccine (#1) 2024 5, 07/29/2013, 05/15/2010 Albumin Creatinine Ratio, Urine 11/01/2024 11/01/2023, 10/23/2022, 10/23/2022, Additional history exists Lipid Panel 11/01/2024 11/01/2023, /0 06/2023, 05/16/2022, Additional history exists eGFR 11/01/2024 11/01/2023, 01/0 06/2023, 05/16/2022, Additional history exists Hemoglobin A1C 12/29/2024 07/01/2024, 10/15, 01/15/2023, Additional history exists Dilated Eye Exam 03/05/2025 03/05/2024 Foot Exam 07/01/2025 07/01/2024, 10/15, 01/15/2023, Additional history exists Procedures Procedure Name Priority Date/Time Associated Diagnosis Comments POCT HEMOGLOBIN A1C Routine 07/01/2024 1 :14 PM CDT Type 2 diabetes mellitus with hyperglycemia, with long-term current use of insulin (HCC) HM DIABETES EYE EXAM Routine 03/05/2024 9:30 AM CDT EGFR Routine 11/01/2023 10:07 AM PARKING METER INSTALLER Type 2 diabetes mellitus with hyperglycemia, with long-term current use of insulin (HCC) Hypertension associated with diabetes (HCC) Hyperlipidemia associated with type 2 diabetes mellitus (HCC) LIPID PANEL Routine 11/01/2023 10:07 AM PARKING METER INSTALLER Type 2 diabetes mellitus with hyperglycemia, with long-term current use of insulin (HCC) Hyperlipidemia associated with type 2 diabetes mellitus (HCC) ALBUMIN CREATININE RATIO, URINE Routine 11/01/2023 10:07 AM PARKING METER INSTALLER Type 2 diabetes mellitus with hyperglycemia, with long-term current use of insulin (HCC) Hypertension associated with diabetes (HCC) from Last 3 Months or Most Recently Relevant to Health Maintenance Results * POCT hemoglobin A1c (07/01/2024 1:14 PM CDT) [facility] Hemoglobin A1C, POC 10.6 4.0 - 5.6 % Blood 07/01/2024 1:14 PM CDT Veronica Diaz MD POINT OF CARE TEST ORDERABLES Final Result * HM DIABETES EYE EXAM (03/05/2024 9:30 AM CDT) Historical Provider HEALTH MAINTENANCE Edited Result - Final * eGFR (11/01/2023 10:07 AM PARKING METER INSTALLER) eGFR 76 mL/min/1. 73 m2 [facility] Comment: Interpretive Data Reference Interval Normal >/= 90 mL/min/1.73m2 Mildly decreased* 60 - 89 mL/min/1.73m2 Mildly to moderately decreased 45 - 59 mL/min/1.73m2 Moderately to severely decreased 30 - 44 mL/min/1.73m2 Severely decreased 15 - 29 mL/min/1.73m2 Kidney Failure < 15 mL/min/1.73m2 *Relative to young adult level Estimated glomerular filtration rate is determined by the 2020 CKD-EPI equation recommended by the National Kidney Foundation (A Unifying Approach to GFR Estimation: Recommendations of the NKF-ASK Task Force on Reassessing the Inclusion of Race in Diagnosing Kidney Disease, JASN 2020). The CKD-EPI equation should not be used for patients with unstable renal function and has not been validated in children and those over 70. Current interpretive data was last reviewed 2021. Blood 11/01/2023 10:0 7 AM PARKING METER INSTALLER 11/01/2023 12:27 PM PARKING METER INSTALLER Veronica Diaz MD LAB BLOOD ORDERABLE S Final Result [facility] [id number] Department [place] [address] * Albumin Creatinine Ratio, Urine (11/01/2023 10:07 AM PARKING METER INSTALLER) Albumin Ur <12.0 mg/L [facility] Comment: Interpretive Data No reference range established. Current interpretive data was last revised 2019. Creatinine Ur 115.3 mg/dL [facility] Comment: Interpretive Data No reference range established. Current interpretive data was last revised 2019. Albumin Creatinine Ratio, Ur <10 1 - 29 mg/g [facility] Urine 11/01/2023 10:0 7 AM PARKING METER INSTALLER 11/01/2023 12:17 PM PARKING METER INSTALLER us Veronica Diaz MD LAB URINE ORDERABLE S Final Result [facility] [id number] [address] Department [place] [address] * Lipid panel (11/01/2023 10:07 AM PARKING METER INSTALLER) Cholesterol 124 30 - 199 mg/dL [facility] Comment: Interpretive Data Ages < or = 19 years Acceptable: <170 mg/dL Borderline high: 170-199 mg/dL High: >or= 200 mg/dL Ages > or = 20 years Desirable: <200 mg/dL Borderline high: 200-239 mg/dL High: >or= 240 mg/dL Literature References: 1. Expert Panel on Integrated Guidelines for Cardiovascular Health and Risk Reduction in Children and Adolescents. Pediatrics 2011;128:S213 2. NCEP Expert Panel. Circulation 2004;110:227 Current Interpretive Data was last revised on 2018. Triglycerides 114 <=149 mg/dL [facility] Comment: Interpretive Data Ages < or = 9 years Acceptable: <75 mg/dL Borderline high: 75-99 mg/dL High: >or= 100 mg/dL Ages 10 to 20 years Acceptable: <90 mg/dL Borderline high: 90-129 mg/dL High: >or= 130 mg/dL Ages > or = 20 years Desirable: <150 mg/dL Borderline high: 150-199 mg/dL High: 200-499 mg/dL Very high: >or= 499 mg/dL Literature References: 1. Expert Panel on Integrated Guidelines for Cardiovascular Health and Risk Reduction in Children and Adolescents. Pediatrics 2011;128:S213 2. NCEP Expert Panel. Circulation 2004;110:227 Current Interpretive Data was last revised on 2018. HDL 45 >=40 mg/dL [facility] Comment: Interpretive Data Ages < or = 19 years Acceptable: >45 mg/dL Borderline low: 40-45 mg/dL Low: <40 mg/dL Ages > or = 20 years Desirable: >or= 60 mg/dL Low: <40 mg/dL Literature References: 1. Expert Panel on Integrated Guidelines for Cardiovascular Health and Risk Reduction in Children and Adolescents. Pediatrics 2011;128:S213 2. NCEP Expert Panel. Circulation 2004;110:227 Current Interpretive Data was last revised on 2018. LDL, calculated 56 <=129 mg/dL [facility] Comment: Interpretive Data Ages < or = 19 years Acceptable: <110 mg/dL Borderline high: 110-129 mg/dL High: >or= 130 mg/dL Ages > or = 20 years Optimal: <100 mg/dL Near optimal: 100-129 mg/dL Borderline high: 130-159 mg/dL High: >160 mg/dL Literature References: 1. Expert Panel on Integrated Guidelines for Cardiovascular Health and Risk Reduction in Children and Adolescents. Pediatrics 2011;128:S213 2. NCEP Expert Panel. Circulation 2004;110:227 Current Interpretive Data was last revised on 2018. Non-HDL Cholesterol 79 mg/dL [facility] Comment: Interpretive Data Ages < or = 19 years Acceptable: <120 mg/dL Borderline high: 120-144 mg/dL High: >145 mg/dL Ages > or = 20 years When triglycerides are >200 mg/dL, Non-HDL cholesterol is a secondary target of therapy with treatment goals that are 30 mg/dL greater than the LDL cholesterol target. Literature References: 1. Expert Panel on Integrated Guidelines for Cardiovascular Health and Risk Reduction in Children and Adolescents. Pediatrics 2011;128:S213 2. NCEP Expert Panel. Circulation 2004;110:227 Current Interpretive Data was last revised on 2018. Chol/HDL ratio 3 [facility] Blood 11/01/2023 10:0 7 AM PARKING METER INSTALLER 11/01/2023 12:17 PM PARKING METER INSTALLER us Veronica Diaz MD LAB BLOOD ORDERABLE S Final Result [facility] [id number] Department [place] [address] from Last 3 Months or Most Recently Relevant to Health Maintenance Insurance [employer] [facility] [employer] Care Teams Community Recreation Programmer Relationship Specialty Start Date End Date Esau Pascual MD PCP - General 05/01/11 [place] [id number] [address] [place] [address] Consulting Physician Endocrinology 03/07/21
--- OUTSIDE RECORDS SUMMARY | 2024-12-18 00:53 | XMS_ITS | Clinical Summary ---
Author Organization [facility] Address [address] [address] Phone Care Team Providers Care Proposal Director Name Role Phone Esau Pascual MD Primary Care Provider [phone] Medications Medication Sig Dispensed Refills Start Date End Date Status lisinopril (PRINIVIL,ZESTRIL) 20 MG tablet 1 tablet daily 0 09/25/2016 Active ALPRAZolam (XANAX) 1 MG tablet 1 tablet two times daily 0 09/25/2016 Active simvastatin (ZOCOR) 40 MG tablet 1 tablet daily 0 09/25/2016 Active sertraline (ZOLOFT) 100 MG tablet 1 tablet daily 0 09/25/2016 Active HYDROcodone-acetaminop hen (NORCO) 10-325 MG per tablet 1 tablet four times daily 0 09/25/2016 Active omeprazole (PriLOSEC) [address] capsule 1 tab daily 0 09/25/2016 Active traZODone (DESYREL) 100 MG tablet 1 tablet at bedtime 0 09/25/2016 Active glimepiride (AMARYL) 2 MG tablet TAKE ONE TABLET TWICE DAILY BEFORE LUNCH AND DINNER 03/13/2019 Active Active Problems Problem Noted Date Diagnosed Date Type 2 diabetes mellitus without complication Other microscopic hematuria 05/17/2017 Morbid (severe) obesity due to excess calories 0 11/23/2016 Metabolic syndrome 11/23/2016 Essential (primary) hypertension 09/25/2016 Immunizations Name Administration Dates Next Due Influenza TIV (IM) 09/02/2015 Family History Medical History Relation Comments Coronary arteriosclerosis Father Diabetes mellitus Mother Diabetes mellitus Sibling Relation Status Comments Father Mother Sibling Social History Tobacco Use Types Packs/Day Years Used Date Smoking Tobacco: Some Days Alcohol Use Standard Drinks/Week Comments Never 0 (1 standard drink = 0.6 oz pur e alcohol) AUDIT-C Answer Date Recorded Frequency of Alcohol Consumption Never 05/21/2019 Average Number of Drinks Not on file 019 Frequency of Binge Drinking Not on file 04/2019 Sex and Gender Information Value Date Recorded Sex Assigned at Not on file Gender Identity Not on file Sexual Orientation Not on file Last Filed Vital Signs Vital Sign Reading Time Taken Comments Blood Pressure 120/68 05/27/2019 11:50 AM CDT Pulse 84 05/27/2019 11:50 AM CDT Temperature - - Respiratory Rate - - Oxygen Saturation - - Inhaled Oxygen Concentration - - Weight 118 kg (260 lb) 05/27/2019 11:50 AM CDT Height 165.1 cm (5' 5) 05/27/2019 11:50 AM CDT Body Mass Index 43.27 05/27/2019 11:50 AM CDT Plan of Treatment Health Maintenance Due Date Last Done Comments Influenza Vaccine (#1) 2024 09/02/2015 Care Teams Proposal Director Relationship Specialty Start Date End Date Esau Pascual MD [address] [place] [address] PCP - General 05/26/19
--- OUTSIDE RECORDS SUMMARY | 2024-12-18 00:53 | XMS_ITS | Clinical Summary ---
Author Organization [facility] Address [address] [place] [address] Phone Care Team Providers Care Cleaning Associate Name Role Phone Esau Pascual Primary Care Provider [phone] Allergies No known active allergies Medications ALPRAZolam (XANAX) 1 MG Tablet TAKE ONE TABLET TWICE DAILY -- AVOID DRIVING OR OPERATING MACHINES 0 9 Active Blood Glucose Monitoring Suppl (ONETOUCH VERIO IQ SYSTEM) w/Device Kit 9 Active gabapentin (NEURONTIN) 600 MG Tablet Take by mouth. 6 Active glimepiride (AMARYL) 2 MG Tablet TAKE ONE TABLET TWICE DAILY BEFORE LUNCH AND DINNER 5 9 Active ONETOUCH VERIO Strip 9 Active HYDROcodone-lilia taminophen (NORCO) 10-325 MG Tablet TAKE ONE TABLET 3 TIMES DAILY FOR PAIN -- AVOID DRIVING OR OPERATING MACHINES 0 9 Active lisinopril (PRINIVIL, ZESTRIL) 20 MG Tablet Take 20 mg by mouth daily. 3 9 Active metFORMIN (GLUCOPHAGE) 500 MG Tablet TAKE ONE TABLET TWICE DAILY ( WITH MORNING AND EVENING MEAL ) 0 9 Active omeprazole (PRILOSEC) 20 MG CAPSULE DELAYED RELEASE TAKE 1 CAPSULE ONCE EVERY DAY BEFORE A MEAL 0 9 Active sertraline (ZOLOFT) 100 MG Tablet Take 100 mg by mouth daily. 3 9 Active simvastatin (ZOCOR) 40 MG Tablet TAKE 1 TABLET DAILY IN THE EVENING 3 9 Active traZODone (DESYREL) 100 MG Tablet Take 1 Tab by mouth. 6 Active Social History Tobacco Use Types Packs/Day Years Used Date Smoking Tobacco: Former Cigarettes Q uit: 03/26/2018 Smokeless Tobacco: Never Alcohol Use Standard Drinks/Week Comments Never 0 (1 standard drink = 0.6 oz pur e alcohol) AUDIT-C Answer Date Recorded Frequency of Alcohol Consumption Never 03/26/2019 Average Number of Drinks Not on file 019 Frequency of Binge Drinking Not on file 03/15 Sexually Active Control Partners Comments Not Currently Comments No Sex and Gender Information Value Date Recorded Sex Assigned at Not on file Legal Sex Female 11:54 PM CDT Gender Identity Not on file Sexual Orientation Not on file Last Filed Vital Signs Vital Sign Reading Time Taken Comments Blood Pressure 116/78 04/09/2019 1:15 PM CDT Pulse 80 04/09/2019 1:15 PM CDT Temperature 36.4 C (97.6 F) 04/09/2019 1:15 PM CDT Respiratory Rate 18 04/09/2019 1:1 5 PM CDT Oxygen Saturation 96% 04/09/2019 1:15 PM CDT Inhaled Oxygen Concentration - - Weight 117.1 kg (258 lb 3.2 oz) 04/09/2019 1:15 PM CDT Height 167.6 cm (5' 6) 04/09/2019 1:15 PM CDT Body Mass Index 41.67 04/09/2019 1:15 PM CDT Plan of Treatment Health Maintenance Due Date Last Done Comments Hepatitis C Virus (HCV) Screening 1960 Mammogram 1960 TdaP Immunization 1960 Pap Smear 1981 Cervical Cancer Screening (CCS) 1990 HPV/Cotest 1990 Colonoscopy 2005 Colorectal Cancer Screening 2005 Cologuard 2010 Immunochemical Fecal Occult Blood 2010 Pneumococcal Immunization (5 0+ years) (1 of 1 - PCV) 2010 Zoster Immunization (1 of 2) 2010 Influenza Immunization (#1) 2024 SARS-COV-2 Immunization (2023- season) 2024 Respiratory Syncytial Virus (RSV) Immunization (Adult) (1 - 1-dose 75+ series) 2035 Hepatitis B Immunization Aged Out No longer eligible based on patient's age to complete this topic Meningococcal Immunization (ACWY) Aged Out No longer eligible based on patient's age to complete this topic Pneumococcal Immunization Combined Aged Out No longer eligible based on patient's age to complete this topic Rotavirus Immunization Aged Out No lo nger eligible based on patient's age to complete this topic Insurance MEDICARE [facility] [place] [address] Care Teams Cleaning Associate Relationship Specialty Start Date End Date Esau Pascual [address] [place] [address] PCP - General Family Medicine 02/27/19
--- OUTSIDE RECORDS SUMMARY | 2024-12-18 00:53 | XMS_ITS | Referral Summary ---
Author Organization [address] Address [address] [place] [id number] Care Team Providers Care Dialysis Patient Care Technician Name Role Phone Esau Pascual MD Primary Care Provider [phone] Veronica Minaya MD Unavailable [phone] Encounters Date Type Department Care Team Description 12/11/2024 Telephone [facility] Diabetes and Endocrinology [address] [place] [phone] [facility] 12/08/2024 Telephone [facility] Diabetes and Endocrinology [address] [place] [phone] Veronica Minaya MD refill request 11/13/2024 Telephone [facility] [address] [address] Veronica Minaya MD 10/09/2024 Telephone [facility] [address] [address] Veronica Minaya MD Forms/questionnaires ([facility] ) from Last 3 Months Allergies No known active allergies Medications ALPRAZolam [...] mg total) by mouth daily 6 Active SelatraTouch Verio Flex meter miscIndications :Type 2 diabetes mellitus with hyperglycemia, with long-term current use of insulin ([facility]) One glucometer 1 each 3 Active SelatraTouch Verio test strips stripIndication s:Type 2 diabetes mellitus with hyperglycemia, with long-term current use of insulin ([facility]) Check 2 x daily 100 each 11 3 Active SelatraTouch Delica Lancets 30 gauge miscIndications :Type 2 diabetes mellitus with hyperglycemia, with long-term current use of insulin ([facility]) Check blood sugar two times a day or as directed 100 each 11 3 Active ergocalciferol (VITAMIN D) 50,000 unit capsule TAKE 1 CAPSULE BY MOUTH EVERY SUNDAY AT 9AM 12 capsule 11 3 Active blood-glucose transmitter (Dexcom G6 Transmitter) deviceIndicatio ns:Type 2 diabetes mellitus with hyperglycemia, with long-term current use of insulin ([facility]) Change every 90 days 1 each 3 3 Active Additional Information Patient not taking.Reported on 07/01/2024 pen needle, diabetic (Pen Needle) 31 gauge x 5/16 needleIndicatio ns:Type 2 diabetes mellitus with hyperglycemia, with long-term current use of insulin ([facility]) Use to inject 1 time daily as directed 100 each 11 4 Active empagliflozin (Jardiance) 25 mg tabletIndicatio ns:Type 2 diabetes mellitus with hyperglycemia, with long-term current use of insulin ([facility]) TAKE ONE TABLET BY MOUTH DAILY AT [...] with long-term current use of insulin (HCC) Inject 5 mg under the skin every 7 days 6 mL 5 4 025 Active LANTUS 100 unit/mL (3 mL) pen for injectionIndica tions:Type 2 diabetes mellitus with hyperglycemia, with long-term current use of insulin (HCC) INJECT 35 UNITS UNDER THE SKIN DAILY 30 mL 6 4 025 Active blood-glucose meter,continuou s (Terascalacom G7 Body Coverer) miscIndications :Type 2 diabetes mellitus with hyperglycemia, [...] months Assessment & Plan (11/01/2023 10:02 AM [employer] GRADER): Chronic, improving control A1c 5.7% Not wearing [...] mg SQ weekly Gave free sample for SageQuestyle kirsetn 3 today and sent in a script to pt pharmacy Advised pt to make an eye exam MALLIKA Daily foot care Advise to see [employer] [employer] [facility] for foot callus Follow up in 6 months Assessment & Plan (02/23/2022 12:31 PM CDT): Chronic problem, not at goal. Increase Ozempic to 1 mg. Continue same other medications. She is going to start walking with her granddaughter. Update routine labs today. Assessment & Plan (09/15/2021 3:28 PM [employer] AND CREAM GRADER): Chronic condition, improved. Encouraged her to continue [...] on diet - check blood sugars at [facility] - make an eye exam soon - follow up in 3 months Assessment & Plan (08/16/2020 12:21 PM [employer] AND CREAM GRADER): Chronic, uncontrolled , improving control since 12/2019 A1c today - 7.7 % - discussed about DM type 2, - patho physiology, short and terminal superintendent complications of uncontrolled DM, diet and exercise [...] 08/16/2020 Assessment & Plan (11/01/2023 10:03 AM [employer]AM GRADER): Pt on Vitamin D replacement therapy Recheck levels, further plans based on it Assessment & Plan (02/23/2022 12:29 PM CDT): Update vitamin D level. Assessment & Plan (01/17/2021 9:12 PM CDT): Restart taking Vitamin D replacement therapy Recheck levels, further plans based on it Assessment & Plan (08/16/2020 12:20 PM [employer]AM GRADER): Very low vitamin D 25 (OH) levels In december 2019 Start pt on replacement therapy Hypertension associated with diabetes 08/16/2020 Assessment & Plan (07/01/2024 2:22 PM CDT): Chronic, well controlled Continue lisinopril Assessment & Plan (11/01/2023 10:02 AM [employer] GRADER): Chronic, well controlled Continue current medication regimen Assessment & Plan (01/15/2023 12:17 PM CDT): Chronic, well controlled Continue current medication regimen Assessment & Plan (02/23/2022 12:28 PM CDT): Controlled on current medications, no changes. Assessment & Plan (09/15/2021 3:24 PM [employer] AND [employer] GRADER): Controlled on current medications, no changes. Assessment & Plan (05/09/2021 2:53 PM CDT): Chronic, well controlled Continue current medication regimen Assessment & Plan (01/17/2021 9:10 PM CDT): Chronic, well controlled Continue current medication regimen Assessment & Plan (08/16/2020 12:19 PM [employer] CREAM GRADER): Chronic, well controlled Continue current medication regimen Hyperlipidemia associated with type 2 diabetes no lutz 08/16/2020 Assessment & Plan (07/01/2024 2:21 PM CDT): C/w Atorvastatin 40 mg oral daily Assessment & Plan (11/01/2023 10:03 AM [employer] GRADER): C/w Atorvastatin 40 mg oral daily Assessment & Plan (01/15/2023 12:17 PM CDT): C/w Atorvastatin 40 mg oral daily Assessment & Plan (02/23/2022 12:28 PM CDT): Chronic problem. On statin therapy, no changes. Update lipid panel. Assessment & Plan (09/15/2021 3:24 PM [employer] GRADER): Chronic problem. On statin therapy, no changes. Assessment & Plan (05/09/2021 2:53 PM CDT): C/w Atorvastatin 40 mg oral daily Assessment & Plan (01/17/2021 9:09 PM CDT): Reviewed lipid panel results today LLD above goal Change simvastatin to Atorvastatin 40 mg oral daily Assessment & Plan (08/16/2020 12:22 PM [employer] CRE[employer] GRADER): On statin therapy Tolerating well Morbid obesity [...] weekly Assessment & Plan (11/01/2023 10:03 AM MIL[employer]AM GRADER): Chronic, worsening Counseled on diet and exercise [...] weekly Assessment & Plan (08/16/2020 12:22 PM MIL[employer] AND CREAM GRADER): Chronic, worsening Discussed about healthy lifestyle habits [...] plans Assessment & Plan (08/16/2020 12:27 PM MILK AND CREAM GRADER): Reviewed pt last thyroid labs from [facility] [...] Increase Ozempic. Body mass index 40.0-44.9, adult ([facility]) 02/23/2022 07/01/2024 Immunizations Immunization Administration Dates Next Due Influenza, Split 05/15/2010 TD Preservative Free 05/15/2010 Social History Tobacco Use Types Packs/Day Years [...] on file Legal Sex Female 1:58 AM [employer] CRE[employer] GRADER Gender Identity Not on file Sexual Orientation [...] 07/01/2024 1:12 PM CDT Plan of Treatment Not on file Procedures Procedure Name Priority Date/Time Associated Diagnosis Comments POCT HEMOGLOBIN A1C Routine 07/01/2024 1 :14 PM CDT Type 2 diabetes mellitus with hyperglycemia, with long-term current use of insulin (HCC) DIABETES EYE EXAM Routine 03/05/2024 9:30 AM CDT EGFR Routine 11/01/2023 10:07 AM [employer] AND CREAM GRADER Type 2 diabetes mellitus with hyperglycemia, with long-term current use of insulin (HCC) Hypertension associated with diabetes (HCC) Hyperlipidemia associated with type 2 diabetes mellitus (HCC) LIPID PANEL Routine 11/01/2023 10:07 AM MILK AND CREAM GRADER Type 2 diabetes mellitus with hyperglycemia, with long-term current use of insulin (HCC) Hyperlipidemia associated with type 2 diabetes mellitus (HCC) ALBUMIN CREATININE RATIO, URINE Routine 11/01/2023 10:07 AM MILK AND CREAM GRADER Type 2 diabetes mellitus with hyperglycemia, with long-term current use of insulin (HCC) Hypertension associated with diabetes (HCC) from Last 3 Months or Most Recently Relevant to Health Maintenance Results * POCT hemoglobin A1c (07/01/2024 1:14 PM CDT) Hemoglobin A1C, POC 10.6 4.0 - 5.6 % Blood 07/01/2024 1:14 PM CDT Veronica Diaz MD POINT OF CARE TEST ORDERABLES Final Result * DIABETES EYE EXAM (03/05/2024 9:30 AM CDT) Historical Provider HEALTH MAINTENANCE Edited Result - Final * eGFR (11/01/2023 10:07 AM [employer] AND CREAM GRADER) eGFR 76 mL/min/1. 73 m2 [facility] [...] reviewed 2021. Blood 11/01/2023 10:0 7 AM MILK AND CREAM GRADER 11/01/2023 12:27 PM MILK AND CREAM GRADER Veronica Diaz MD LAB BLOOD ORDERABLE S Final Result [facility] [id number] Department [place] [address] * Albumin Creatinine Ratio, Urine (11/01/2023 10:07 AM MILK AND CREAM GRADER) Albumin Ur <12.0 mg/L [facility] Comment: Interpretive Data No reference range established. Current interpretive data was last revised 2019. Creatinine Ur 115.3 mg/dL [facility] Comment: Interpretive Data No reference range established. Current interpretive data was last revised 2019. Albumin Creatinine Ratio, Ur <10 1 - 29 mg/g [facility] Urine 11/01/2023 10:0 7 AM MILK AND CREAM GRADER 11/01/2023 12:17 PM MILK AND CREAM GRADER us Veronica Diaz MD LAB URINE ORDERABLE S Final Result [facility] [id number] [address] Department [place] [address] * Lipid panel (11/01/2023 10:07 AM MILK AND CREAM GRADER) Cholesterol 124 30 - 199 mg/dL [facility] Comment: Interpretive Data Ages [...] on 2018. Triglycerides 114 <=149 mg/dL [facility] Comment: Interpretive Data Ages [...] [facility] Blood 11/01/2023 10:0 7 AM MILK AND CREAM GRADER 11/01/2023 12:17 PM MILK AND CREAM GRADER us Harleyja Joe Diaz MD LAB BLOOD ORDERABLE S Final Result [facility] [address] [address] Department [place] [address] from Last 3 Months or Most Recently Relevant to Health Maintenance Insurance [employer] Care Teams Dialysis Patient Care Technician Relationship Specialty Start Date End Date Esau Pascual MD PCP - General 05/01/11 [place] [address] [address] [facility] [address] [place] [address] Consulting Physician Endocrinology 03/07/21
[2025-05-19 09:05] VITALS: BMI 37.8
--- OUTSIDE RECORDS SUMMARY | 2025-05-21 03:31 | XMS_ITS | Clinical Summary ---
Author Organization [facility] Address [address] [address] Phone Care Team Providers Care Chipping Machine Operator Name Role Phone Esau Pascual MD Primary Care Provider [phone] Medications lisinopril (PRINIVIL,ZESTR IL) 20 MG tablet 1 tablet daily 0 09/25/2016 Active ALPRAZolam (XANAX) 1 MG tablet 1 tablet two times daily 0 09/25/2016 Active simvastatin (ZOCOR) 40 MG tablet 1 tablet daily 0 09/25/2016 Active sertraline (ZOLOFT) 100 MG tablet 1 tablet daily 0 09/25/2016 Active HYDROcodone-lilia taminophen (NORCO) 10-325 MG per tablet 1 tablet four times daily 0 09/25/2016 Active omeprazole (PriLOSEC) [address] capsule 1 tab daily 0 09/25/2016 Act chloé traZODone (DESYREL) 100 MG tablet 1 tablet at bedtime 0 09/25/2016 Active glimepiride (AMARYL) 2 MG tablet TAKE ONE TABLET TWICE DAILY BEFORE LUNCH AND DINNER 03/13/2019 Active Active Problems Problem Noted Date Diagnosed Date Type 2 diabetes mellitus without complication Other microscopic hematuria 05/17/2017 Morbid (severe) obesity due to excess calories 0 11/23/2016 Metabolic syndrome 11/23/2016 Essential (primary) hypertension 09/25/2016 Immunizations Immunization Administration Dates Next Due Influenza TIV (IM) [...] of Binge Drinking Not on file 04/2019 Comments Unknown Sex and Gender Information Value Date Recorded Sex Assigned at Not on file Legal Sex Female 7:33 AM MST Gender Identity Not on file Sexual Orientation [...] Date Last Done Comments Influenza Vaccine (#1) 2025 09/02/2015 Insurance MEDICAID Care Teams Chipping Machine Operator Relationship Specialty Start Date End Date Esau Pascual MD [address] [place] [address] PCP - General 05/26/19
--- OUTSIDE RECORDS SUMMARY | 2025-05-21 03:32 | XMS_ITS | Continuity of Care Document ---
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 Role Phone Esau Pascual MD Unavailable Unavailable Allergies, Adverse Reactions, Alerts Substance Reaction Status Criticality No Known Allergies Active No Inform ation Medications Medication Instructions Dosage Effective Dates (start - stop) Status Comments hydrocodone 7.5 mg-acetaminophen 325 mg tablet take 1 tablet by oral route 3 times every day as needed for pain as needed for g89.4 1 tablet - Active PRN for pain, avoid driving or operate machines Xanax 1 mg tablet take 1 tablet by oral route 2 times every day as needed for f41.1 1 MG - Active avoid driving or operate machines, PRN for anxiety, Lantus Solostar U-100 Insulin 100 unit/mL (3 mL) subcutaneous pen inject by subcutaneous route as per insulin protocol 0.00 - Active lisinopril 20 mg tablet take 1 tablet by oral route every day 20 MG - Active Crestor 20 mg tablet take 1 tablet by oral route every day 20 MG - Active omeprazole 20 mg capsule,delayed release take 1 capsule by oral route every day before a meal 20 MG - Active Neurontin 600 mg tablet take 1 tablet by oral route 3 times every day 600 MG - Active avoid driving or operate machines Zoloft 100 mg tablet take 1 tablet by oral route every day 100 MG - Active Jardiance 25 mg tablet take 1 tablet by oral route every day in the morning 25 MG - Active naloxone 0.4 mg/mL injection syringe inject 1 milliliter by intravenous route over once, may repeat at 2 to 3 minute intervals as needed - Active PRN for OD Pen Needle 31 gauge x 5/16 use once per day with lantus caraostar - Active OneTouch UltraSoft Lancets check BID - Active OneTouch Ultra Blue Test Strip use bid - Active pen needle, diabetic 31 gauge x 1/4 once per day - Active e11.9 Procedures Procedure Date OFFICE/OUTPATIENT VISIT, EST OFFICE/OUTPATIENT VISIT, EST OFFICE/OUTPATIENT VISIT, EST OFFICE/OUTPATIENT VISIT, EST OFFICE/OUTPATIENT VISIT, EST PREV VISIT, EST, AGE 40-64 OFFICE/OUTPATIENT VISIT, EST OFFICE/OUTPATIENT VISIT, EST OFFICE/OUTPATIENT VISIT, EST OFFICE/OUTPATIENT VISIT, EST OFFICE/OUTPATIENT VISIT, EST OFFICE/OUTPATIENT VISIT, EST OFFICE/OUTPATIENT VISIT, EST OFFICE/OUTPATIENT VISIT, EST OFFICE/OUTPATIENT VISIT, EST OFFICE/OUTPATIENT VISIT, EST OFFICE/OUTPATIENT VISIT, EST OFFICE/OUTPATIENT VISIT, EST OFFICE/OUTPATIENT VISIT, EST OFFICE/OUTPATIENT VISIT, EST PREV VISIT, EST, AGE 40-64 OFFICE/OUTPATIENT VISIT, EST OFFICE/OUTPATIENT VISIT, EST OFFICE/OUTPATIENT VISIT, EST OFFICE/OUTPATIENT VISIT, EST OFFICE/OUTPATIENT VISIT, EST OFFICE/OUTPATIENT VISIT, EST OFFICE/OUTPATIENT VISIT, EST OFFICE/OUTPATIENT VISIT, EST OFFICE/OUTPATIENT VISIT, EST OFFICE/OUTPATIENT VISIT, EST OFFICE/OUTPATIENT VISIT, EST OFFICE/OUTPATIENT VISIT, EST OFFICE/OUTPATIENT VISIT, EST OFFICE/OUTPATIENT VISIT, EST OFFICE/OUTPATIENT VISIT, EST OFFICE/OUTPATIENT VISIT, EST -2021 PREV VISIT, EST, AGE 40-64 OFFICE/OUTPATIENT VISIT, EST OFFICE/OUTPATIENT VISIT, EST OFFICE/OUTPATIENT VISIT, EST OFFICE/OUTPATIENT VISIT, EST OFFICE/OUTPATIENT VISIT, EST OFFICE/OUTPATIENT VISIT, EST OFFICE/OUTPATIENT VISIT, EST OFFICE/OUTPATIENT VISIT, EST OFFICE/OUTPATIENT VISIT, EST OFFICE/OUTPATIENT VISIT, EST OFFICE/OUTPATIENT VISIT, EST OFFICE/OUTPATIENT VISIT, EST OFFICE/OUTPATIENT VISIT, EST OFFICE/OUTPATIENT VISIT, EST OFFICE/OUTPATIENT VISIT, EST OFFICE/OUTPATIENT VISIT, EST OFFICE/OUTPATIENT VISIT, EST OFFICE/OUTPATIENT VISIT, EST OFFICE/OUTPATIENT VISIT, EST OFFICE/OUTPATIENT VISIT, EST OFFICE/OUTPATIENT VISIT, EST OFFICE/OUTPATIENT VISIT, EST OFFICE/OUTPATIENT VISIT, EST OFFICE/OUTPATIENT VISIT, EST OFFICE/OUTPATIENT VISIT, EST OFFICE/OUTPATIENT VISIT, EST OFFICE/OUTPATIENT VISIT, EST OFFICE/OUTPATIENT VISIT, EST OFFICE/OUTPATIENT VISIT, EST OFFICE/OUTPATIENT VISIT, EST OFFICE/OUTPATIENT VISIT, EST OFFICE/OUTPATIENT VISIT, EST OFFICE/OUTPATIENT VISIT, EST OFFICE/OUTPATIENT VISIT, EST Feb PREV VISIT, EST, AGE 40-64 OFFICE/OUTPATIENT VISIT, EST OFFICE/OUTPATIENT VISIT, EST OFFICE/OUTPATIENT VISIT, EST OFFICE/OUTPATIENT VISIT, EST OFFICE/OUTPATIENT VISIT, EST OFFICE/OUTPATIENT VISIT, EST OFFICE/OUTPATIENT VISIT, EST OFFICE/OUTPATIENT VISIT, EST OFFICE/OUTPATIENT VISIT, EST OFFICE/OUTPATIENT VISIT, EST OFFICE/OUTPATIENT VISIT, EST OFFICE/OUTPATIENT VISIT, EST PREV VISIT, EST, AGE 40-64 OFFICE/OUTPATIENT VISIT, EST OFFICE/OUTPATIENT VISIT, EST OFFICE/OUTPATIENT VISIT, EST OFFICE/OUTPATIENT VISIT, EST OFFICE/OUTPATIENT VISIT, EST OFFICE/OUTPATIENT VISIT, EST OFFICE/OUTPATIENT VISIT, EST OFFICE/OUTPATIENT VISIT, EST OFFICE/OUTPATIENT VISIT, EST OFFICE/OUTPATIENT VISIT, EST OFFICE/OUTPATIENT VISIT, EST OFFICE/OUTPATIENT VISIT, EST OFFICE/OUTPATIENT VISIT, EST PREV VISIT, EST, AGE 40-64 OFFICE/OUTPATIENT VISIT, EST OFFICE/OUTPATIENT VISIT, EST OFFICE/OUTPATIENT VISIT, EST OFFICE/OUTPATIENT VISIT, EST OFFICE/OUTPATIENT VISIT, EST OFFICE/OUTPATIENT VISIT, EST OFFICE/OUTPATIENT VISIT, EST OFFICE/OUTPATIENT VISIT, EST OFFICE/OUTPATIENT VISIT, EST OFFICE/OUTPATIENT VISIT, EST OFFICE/OUTPATIENT VISIT, EST OFFICE/OUTPATIENT VISIT, EST OFFICE/OUTPATIENT VISIT, EST PREV VISIT, EST, AGE 40-64 OFFICE/OUTPATIENT VISIT, EST OFFICE/OUTPATIENT VISIT, EST OFFICE/OUTPATIENT VISIT, EST OFFICE/OUTPATIENT VISIT, EST OFFICE/OUTPATIENT VISIT, EST OFFICE/OUTPATIENT VISIT, EST OFFICE/OUTPATIENT VISIT, EST OFFICE/OUTPATIENT VISIT, EST OFFICE/OUTPATIENT VISIT, EST OFFICE/OUTPATIENT VISIT, EST OFFICE/OUTPATIENT VISIT, EST OFFICE/OUTPATIENT VISIT, EST OFFICE/OUTPATIENT VISIT, EST OFFICE/OUTPATIENT VISIT, EST OFFICE/OUTPATIENT VISIT, EST OFFICE/OUTPATIENT VISIT, EST OFFICE/OUTPATIENT VISIT, EST OFFICE/OUTPATIENT VISIT, EST OFFICE/OUTPATIENT VISIT, EST OFFICE/OUTPATIENT VISIT, EST OFFICE/OUTPATIENT VISIT, EST OFFICE/OUTPATIENT VISIT, EST OFFICE/OUTPATIENT VISIT, EST OFFICE/OUTPATIENT VISIT, EST OFFICE/OUTPATIENT VISIT, EST OFFICE/OUTPATIENT VISIT, EST OFFICE/OUTPATIENT VISIT, EST OFFICE/OUTPATIENT VISIT, EST OFFICE/OUTPATIENT VISIT, EST OFFICE/OUTPATIENT VISIT, EST OFFICE/OUTPATIENT VISIT, EST OFFICE/OUTPATIENT VISIT, EST OFFICE/OUTPATIENT VISIT, EST OFFICE/OUTPATIENT VISIT, EST OFFICE/OUTPATIENT VISIT, EST OFFICE/OUTPATIENT VISIT, EST OFFICE/OUTPATIENT VISIT, EST OFFICE/OUTPATIENT VISIT, EST OFFICE/OUTPATIENT VISIT, EST OFFICE/OUTPATIENT VISIT, EST OFFICE/OUTPATIENT VISIT, EST OFFICE/OUTPATIENT VISIT, EST OFFICE/OUTPATIENT VISIT, EST OFFICE/OUTPATIENT VISIT, EST OFFICE/OUTPATIENT VISIT, EST OFFICE/OUTPATIENT VISIT, EST OFFICE/OUTPATIENT VISIT, EST OFFICE/OUTPATIENT VISIT, EST OFFICE/OUTPATIENT VISIT, EST OFFICE/OUTPATIENT VISIT, EST OFFICE/OUTPATIENT VISIT, EST OFFICE/OUTPATIENT VISIT, EST OFFICE/OUTPATIENT VISIT, EST PREV VISIT, EST, AGE 40-64 OFFICE/OUTPATIENT VISIT, EST OFFICE/OUTPATIENT VISIT, EST OFFICE/OUTPATIENT VISIT, EST Advance Directives Directive Yes / No Effective Date File Name No Information Encounters Encounter Description Practice Location Reason(s) For Visit Diagnoses Date Provider Providers Copied on Encounter OFFICE/OUTPA TIENT VISIT, EST [facility], [address] [employer] [place], [address], tel:[phone] [facility] anxiety1 (chief complaint)p ain (chief complaint)t hyroid nodule1 (chief complaint) Chronic pain syndromeGeneralize d Anxiety DisorderThyroid nodule 5 Ankur Cifuentes. [address] [facility] [place] [address] , [place]. [phone] OFFICE/OUTPA TIENT VISIT, [facility], [address] [place], [address], [place] tel:[phone] [facility] anxiety1 (chief complaint)p ain (chief complaint)D M (chief complaint)t hyroid1 (chief complaint) Abnormal weight lossThyrotoxicosis w/o thyrotoxic stormChronic pain syndromeGeneralize d Anxiety DisorderType 2 diabetes mellitus with diabetic mononeuropathy 5 Ankur Cifuentes. [address], [address] , [place]. tel:[phone] OFFICE/OUTPA TIENT VISIT, [facility], [address] [place], [address], [place] tel:[phone] [facility] UTI1 (chief complaint)t hyroid1 (chief complaint)D M (chief complaint)t hyroid1 (chief complaint) Acute cystitis with hematuriaThyrotoxi cosis w/o thyrotoxic storm 5 Ankur Ballard [address], [place], [place], [address] , [place]. tel:[phone] OFFICE/OUTPA TIENT VISIT, [facility], [address], [place], [place], [address], [place] [phone] [facility] thyroid1 (chief complaint)L FT (chief complaint)D M (chief complaint)a nxiety1 (chief complaint)p ain (chief complaint) Fatty liverGeneralized Anxiety DisorderChronic pain syndromeThyrotoxic osis w/o thyrotoxic stormType 2 diabetes mellitus with diabetic mononeuropathy 5 Ankur Ballard [address], [place], [place], [address] , [place]. [phone] OFFICE/OUTPA TIENT VISIT, EST [facility], [address], [place], [place], [address], [place] tel:[phone] [facility] anxiety1 (chief complaint)p ain (chief complaint) Chronic pain syndromeGeneralize d Anxiety Disorder 5 Ankur Ballard [address], [place], [place], [address] , [place]. tel:[phone] PREV VISIT, EST, AGE 40-64 [facility], [address], [place], [place], [address], [place] tel:[phone] [facility] physical (chief complaint) Encounter for general adult medical examination without abnormal findings 5 Ankur Ballard [address], [place], [place], [address] , [place]. tel:[phone] OFFICE/OUTPA TIENT VISIT, EST [facility], [address], [place], [place], [address], [place] tel:[phone] [facility] anxiety1 (chief complaint)p ain (chief complaint)s ick (chief complaint) Chronic pain syndromeGeneralize d Anxiety DisorderAcute bronchitis 5 Ankur Ballard [address], [place], [place], [address] , [place]. tel:[phone] OFFICE/OUTPA TIENT VISIT, [facility], [address], [place], [place], [address], [place] tel:[phone] [facility] anxiety1 (chief complaint)p ain (chief complaint)D M (chief complaint)H LP (chief complaint) Chronic pain syndromeGeneralize d Anxiety DisorderType 2 diabetes mellitus with diabetic mononeuropathyMixe d hyperlipidemiaEsse ntial (primary) hypertension 5 Ankur Cifuentes. [address], [place], [place], [address] , [place]. tel:[phone] OFFICE/OUTPA TIENT VISIT, [facility], [address], [place], [place], [address], [place] tel:[phone] [facility] pain (chief complaint)a nxiety1 (chief complaint)I BS-D (chief complaint)G ERD1 (chief complaint) Chronic pain syndromeGeneralize d Anxiety DisorderIBS w/ diarrheaGERD without esophagitisPain in left knee 4 Ankur Ballard [address], [place], [place], [address] , [place]. [phone] OFFICE/OUTPA TIENT VISIT, [facility], [address], [address], [place] tel:[phone] [facility] GERD1 (chief complaint) GERD w/o esophagitis 4 Ankur Cifuentes. [address], [place], [place], [address] , [place]. tel:[phone] OFFICE/OUTPA TIENT VISIT, [facility], [address], [place], [place], [address], [place] tel:[phone] [facility] pain (chief complaint)a nxiety1 (chief complaint)k nee pain1 (chief complaint)i ncontinence 1 (chief complaint) Chronic pain syndromeGeneralize d Anxiety DisorderIBS w/ diarrheaMixed incontinence 4 Ankur Cifuentes. [address], [place], [place], [address] , [place]. tel:[phone] OFFICE/OUTPA TIENT VISIT, [facility], [address], [place], [place], [address], [place] tel:[phone] [facility] DM (chief complaint)p ain (chief complaint)a nxiety1 (chief complaint) Generalized Anxiety DisorderChronic pain syndromeType 2 diabetes mellitus with diabetic mononeuropathy 4 Ankur Cifuentes. [address], [place], [place], [address] , [place]. tel:[phone] OFFICE/OUTPA TIENT VISIT, [facility], [address], [place], [place], [address], [place] tel:[phone] [facility] pain (chief complaint)a nxiety1 (chief complaint) Chronic pain syndromeGeneralize d Anxiety Disorder 4 Ankur Cifuentes. [address], [place], [place], [address] , [place]. tel:[phone] OFFICE/OUTPA TIENT VISIT, [facility], [address], [place], [place], [address], [place] tel:[phone] [facility] pain1 (chief complaint)a nxiety1 (chief complaint)G I (chief complaint) GastroenteritisGen eralized Anxiety DisorderChronic pain syndrome 4 Ankur Cifuentes. [address], [place], [place], [address] , [place]. tel:[phone] OFFICE/OUTPA TIENT VISIT, [facility], [address], [place], [place], [address], [place] tel:[phone] [facility] pain (chief complaint)a nxiety1 (chief complaint) Chronic pain syndromeGeneralize d Anxiety Disorder 4 Ankur Cifuentes. [address], [place], [place], [address] , [place]. tel:[phone] OFFICE/OUTPA TIENT VISIT, [facility], [address], [place], [place], [address], [place] tel:[phone] [facility] pain (chief complaint)a nxiety1 (chief complaint)l eft knee pain1 (chief complaint) Generalized Anxiety DisorderChronic pain syndromePain in left knee 4 Ankur Cifuentes. [address], [place], [place], [address] , [place]. tel:[phone] OFFICE/OUTPA TIENT VISIT, [facility], [address] [place], [address], [place] tel:[phone] [facility] pain (chief complaint)a nxiety1 (chief complaint)k nee pain1 (chief complaint) Chronic pain syndromeGeneralize d Anxiety Disorder 4 Ankur Cifuentes. [address], [place], [place], [address] , [place]. tel:[phone] OFFICE/OUTPA TIENT VISIT, [facility], [address] [place], [address], [place] tel:[phone] [facility] pain (chief complaint)a nxiety1 (chief complaint)D M (chief complaint)L FT (chief complaint)H LP (chief complaint)k nee pain1 (chief complaint) [facility] ([facility]) drug therapyPain in left kneeFatty liverType 2 diabetes mellitus with diabetic mononeuropathyMixe d hyperlipidemiaGene ralized Anxiety DisorderChronic pain syndrome 4 Ankur Cifuentes. [address], [place], [place], [address] , [place]. tel:[phone] OFFICE/OUTPA TIENT VISIT, [facility], [address] [place], [address], [place] tel:[phone] [facility] Medicine pain (chief complaint)a nxiety1 (chief complaint)m ammo (chief complaint) Generalized Anxiety DisorderChronic pain syndromeSolitary lung noduleEncntr screen mammogram for malignant neoplasm of breast 4 Ankur Ballard [address], [place], [place], [address] , [place]. [phone] OFFICE/OUTPA TIENT VISIT, EST [facility], [address], [place], [place], [address], [place] tel:[phone] [facility] HLP (chief complaint)H TN (chief complaint) Mixed hyperlipidemiaEsse ntial (primary) hypertension 4 Ankur Cifuentes. [address], [place], [place], [address] , [place]. tel:[phone] PREV VISIT, EST, AGE 40-64 [facility], [address], [place], [place], [address], [place] tel:[phone] [facility] physical (chief complaint) Encounter for general adult medical exam w abnormal findingsType 2 diabetes mellitus with diabetic mononeuropathyFatt y liverChronic pain syndromeGeneralize d Anxiety DisorderMixed hyperlipidemiaCAD of [place] coronary artery without angina pectorisGERD without esophagitis 4 Ankur Ballard [address], [place], [place], [address] , [place]. tel: [phone] OFFICE/OUTPA TIENT VISIT, EST [facility], [address], [place], [place], [address], [place] tel:[phone] [facility] pain (chief complaint)a nxiety1 (chief complaint)t obacco1 (chief complaint)D M (chief complaint) Tobacco useChronic pain syndromeGeneralize d Anxiety DisorderType 2 diabetes mellitus with diabetic mononeuropathy 4 Ankur Ballard [address], [place], [place], [address] , [place]. [phone] OFFICE/OUTPA TIENT VISIT, [facility], [address], [place], [place], [address], [place] tel:[phone] [facility] back pain1 (chief complaint)a nxiety1 (chief complaint)D M (chief complaint)f atty liver1 (chief complaint) Chronic pain syndromeGeneralize d Anxiety DisorderType 2 diabetes mellitus with diabetic mononeuropathyFatt y liver 3 Ankur Ballard [address], [place], [place], [address] , [place]. tel:[phone] OFFICE/OUTPA TIENT VISIT, [facility], [address], [place], [place], [address], [place] tel:[phone] [facility] Medicine pain (chief complaint)a nxiety1 (chief complaint) Chronic pain syndromeGeneralize d Anxiety Disorder 3 Ankur Ballard [address], [place], [place], [address] , [place]. tel:[phone] OFFICE/OUTPA TIENT VISIT, [facility], [address], [place], [place], [address], [place] tel:[phone] [facility] pain (chief complaint)a nxiety1 (chief complaint) Chronic pain syndromeGeneralize d Anxiety Disorder 3 Ankur Ballard [address], [place], [place], [address] , [place]. tel:[phone] OFFICE/OUTPA TIENT VISIT, [facility], [address], [address], [place] tel:[phone] [facility] pain (chief complaint)a nxiety1 (chief complaint) Chronic pain syndromeGeneralize d Anxiety Disorder 3 Ankur Cifuentes. [address], [place], [place], [address] , [place]. tel:[phone] OFFICE/OUTPA TIENT VISIT, [facility], [address], [place], [place], [address], [place] tel:[phone] [facility] pain (chief complaint)a nxiety1 (chief complaint)G ERD1 (chief complaint) Generalized Anxiety DisorderChronic pain syndromeGERD without esophagitis 3 Ankur Ballard [address], [place], [place], [address] , [place]. tel:[phone] OFFICE/OUTPA TIENT VISIT, [facility], [address], [place], [place], [address], [place] tel:[phone] [facility] pain (chief complaint)a nxiety1 (chief complaint)C AD (chief complaint)D M (chief complaint) CAD of [place] coronary artery without angina pectorisChronic pain syndromeGeneralize d Anxiety DisorderType 2 diabetes mellitus with diabetic mononeuropathy 3 Ankur Ballard [address], [place], [place], [address] , [place]. tel:[phone] OFFICE/OUTPA TIENT VISIT, [facility], [address], [place], [place], [address], [place] tel:[phone] [facility] anxiety1 (chief complaint)p ain (chief complaint)C AD (chief complaint) Chronic pain syndromeGeneralize d Anxiety DisorderCAD of [place] coronary artery without angina pectorisInconclusi ve mammogram 3 Ankur Ballard [address], [place], [place], [address] , [place]. tel:[phone] OFFICE/OUTPA TIENT VISIT, [facility], [address], [place], [place], [address], [place] tel:[phone] [facility] anxiety (chief complaint)p ain (chief complaint) Chronic pain syndromeGeneralize d Anxiety Disorder 3 Ankur Ballard [address], [place], [place], [address] , [place]. tel:[phone] OFFICE/OUTPA TIENT VISIT, [facility], [address], [place], [place], [address], [place] tel:[phone] [facility] anxiety1 (chief complaint)p ain (chief complaint)D M (chief complaint)f atty liver1 (chief complaint)G ERD1 (chief complaint) Chronic pain syndromeGeneralize d Anxiety DisorderType 2 diabetes mellitus with diabetic mononeuropathyFatt y liverCAD of [place] coronary artery without angina pectorisGERD w/o esophagitisTobacco use 3 Ankur Ballard [address], [place], [place], [address] , [place]. tel:[phone] OFFICE/OUTPA TIENT VISIT, [facility], [address], [place], [place], [address], [place] tel:[phone] [facility] aniety1 (chief complaint)p ain (chief complaint)D M (chief complaint)H LP (chief complaint) Mixed hyperlipidemiaType 2 diabetes mellitus with diabetic mononeuropathyChro livan pain syndromeGeneralize d Anxiety Disorder 3 Ankur Ballard [address], [place], [place], [address] , [place]. tel:[phone] OFFICE/OUTPA TIENT VISIT, [facility], [address], [place], [place], [address], [place] tel:[phone] [facility] anxiety1 (chief complaint)b ack pain1 (chief complaint)D M (chief complaint)L FT (chief complaint)H LP (chief complaint) Type 2 diabetes mellitus with diabetic mononeuropathyGene ralized Anxiety DisorderFatty liverMixed hyperlipidemiaHypo natremiaChronic pain syndrome 3 Ankur Ballard [address], [place], [place], [address] , [place]. tel:[phone] OFFICE/OUTPA TIENT VISIT, [facility], [address], [place], [place], [address], [place] tel:[phone] [facility] DM (chief complaint)G ErD1 (chief complaint)H TN (chief complaint) GERD without esophagitisType 2 diabetes mellitus with diabetic mononeuropathyEsse ntial (primary) hypertension 3 Ankur Ballard [address], [place], [place], [address] , [place]. tel:[phone] OFFICE/OUTPA TIENT VISIT, EST [facility], [address], [place], [place], [address], [place] tel:[phone] [facility] anxiety1 (chief complaint)p ain (chief complaint) Chronic pain syndromeGeneralize d Anxiety Disorder 3 Ankur Cifuentes. [address], [place], [place], [address] , [place]. tel:[phone] OFFICE/OUTPA TIENT VISIT, EST [facility], [address], [place], [place], [address], [place] tel:[phone] [facility] anxieyt1 (chief complaint)p ain (chief complaint)k nee pain1 (chief complaint)D M (chief complaint) Chronic pain syndromeGeneralize d Anxiety DisorderType 2 diabetes mellitus with diabetic mononeuropathyPain in right kneeTinea corporis 2 Ankur Cifuentes. [address], [place], [place], [address] , [place]. tel:[phone] PREV VISIT, EST, AGE 40-64 [facility], [address], [place], [place], [address], [place] tel:[phone] [facility] physical (chief complaint) Encounter for general adult medical exam w abnormal findingsUrinary frequencyType 2 diabetes mellitus with diabetic mononeuropathyMixe d hyperlipidemiaGERD without esophagitisEssenti al (primary) hypertensionGenera lized Anxiety DisorderChillsChro livan pain syndrome 2 Pascual Esau. [address], [place], [place], [address] , [place]. tel:[phone] OFFICE/OUTPA TIENT VISIT, EST [facility], [address], [place], [place], [address], [place] tel:[phone] [facility] anxiety1 (chief complaint)p ain (chief complaint) Chronic pain syndromeGeneralize d Anxiety Disorder 2 Pascual Esau. [address], [place], [place], [address] , [place]. tel:[phone] OFFICE/OUTPA TIENT VISIT, [facility], [address], [place], [place], [address], [place] tel:[phone] [facility] anxiety1 (chief complaint)p ain (chief complaint) Chronic pain syndromeGeneralize d Anxiety Disorder 2 Pascual Esau. [address], [place], [place], [address] , [place]. tel:[phone] OFFICE/OUTPA TIENT VISIT, [facility], [address], [address], [place] tel:[phone] [facility] anxiety1 (chief complaint)p ain (chief complaint)D M (chief complaint)H LP (chief complaint) Chronic pain syndromeGeneralize d Anxiety DisorderType 2 diabetes mellitus with diabetic mononeuropathyMixe d hyperlipidemia 2 Pascual Esau. [address], [place], [place], [address] , [place]. tel:[phone] OFFICE/OUTPA TIENT VISIT, [facility], [address] [place], [address], [place] tel:[phone] [facility] anxiety1 (chief complaint)p ain (chief complaint)G ERD1 (chief complaint) Chronic pain syndromeGeneralize d Anxiety DisorderGERD w/o esophagitis 2 Pascual Esau. [address], [place], [place], [address] , [place]. tel:[phone] OFFICE/OUTPA TIENT VISIT, [facility] [facility], [address] [place], [address], [place] tel:[phone] [facility] anxiety1 (chief complaint)p ain (chief complaint)D M (chief complaint)t hyroid1 (chief complaint)H LP (chief complaint) GoiterGeneralized Anxiety DisorderChronic pain syndromeType 2 diabetes mellitus with diabetic mononeuropathyHype rlipidemia 2 Pascual Esau. [address], [place], [place], [address] , [place]. tel:[phone] OFFICE/OUTPA TIENT VISIT, [facility], [address], [place], [place], [address], [place] tel:[phone] [facility] anxiety1 (chief complaint)p ain (chief complaint) Chronic pain syndromeGeneralize d Anxiety Disorder 2 Pascual Esau. [address], [place], [place], [address] , [place]. tel:[phone] OFFICE/OUTPA TIENT VISIT, [facility], [address], [place], [place], [address], [place] tel:[phone] [facility] anxiety1 (chief complaint)p ain (chief complaint)H LP (chief complaint)H TN (chief complaint) Chronic pain syndromeGeneralize d Anxiety DisorderGoiterEsse ntial (primary) hypertensionHyperl ipidemia 2 Pascual Esau. [address], [place], [place], [address] , [place]. tel:[phone] OFFICE/OUTPA TIENT VISIT, [facility], [address], [place], [place], [address], [place] tel:[phone] [facility] anxiety1 (chief complaint)p ain (chief complaint) Chronic pain syndromeGeneralize d Anxiety Disorder 2 Ankur Esau. [address], [place], [place], [address] , [place]. tel:[phone] OFFICE/OUTPA TIENT VISIT, [facility], [address], [place], [place], [address], [place] tel:[phone] [facility] anxiety1 (chief complaint)p ain (chief complaint)t hyroid1 (chief complaint) Chronic pain syndromeGeneralize d Anxiety DisorderGoiter Fe 2 Pascual Esau. [address], [place], [place], [address] , [place]. tel:[phone] OFFICE/OUTPA TIENT VISIT, [facility], [address], [address], [place] tel:[phone] [facility] anxiety1 (chief complaint)b ack pain1 (chief complaint)t hyroid1 (chief complaint)G ERD1 (chief complaint) Chronic pain syndromeGeneralize d Anxiety DisorderGoiterGERD w/o esophagitis 2 Ankur Cifuentes. [address], [place], [place], [address] , [place]. tel:[phone] OFFICE/OUTPA TIENT VISIT, [facility], [address], [address], [place] tel:[phone] [facility] anxiety1 (chief complaint)p ain (chief complaint)t hyroid1 (chief complaint)t obacco1 (chief complaint)H TN (chief complaint) Tobacco useGoiterChronic pain syndromeGeneralize d Anxiety DisorderEssential (primary) hypertensionEncoun ter for oth screening for malignant neoplasm of breastCAD of tatitlek coronary artery without angina pectoris 1 Ankur Cifuentes. [address], [place], [place], [address] , [place]. tel:[phone] OFFICE/OUTPA TIENT VISIT, [facility], [address], [address], [place] tel:[phone] [facility] anxiety1 (chief complaint)p ain (chief complaint)t hyroid1 (chief complaint)t obacco1 (chief complaint) Generalized Anxiety DisorderChronic pain syndromeGoiterPneu moniaTobacco use 1 Ankur Cifuentes. [address], [place], [place], [address] , [place]. [phone] OFFICE/OUTPA TIENT VISIT, [facility], [address], [address], [place] tel:[phone] [facility] anxiety1 (chief complaint)p ain (chief complaint)C OVID1 (chief complaint)t hyroid (chief complaint) PneumoniaGeneraliz ed Anxiety DisorderChronic pain syndromeGoiter 1 Ankur Ballard [address], [place], [place], [address] , [place]. [phone] OFFICE/OUTPA TIENT VISIT, [facility], [address], [place], [place], [address], [place] tel:[phone] [facility] anxiety1 (chief complaint)p ain (chief complaint)D M (chief complaint)f atty liver1 (chief complaint)t hyroid1 (chief complaint)C OVID (chief complaint) Type 2 diabetes mellitus with diabetic mononeuropathyFatt y liverGoiterGeneral ized Anxiety DisorderChronic pain syndromePneumonia 1 Ankur Ballard [address], [place], [place], [address] , [place]. tel: [phone] OFFICE/OUTPA TIENT VISIT, [facility], [address], [address], [place] tel:[phone] [facility] pain (chief complaint)a nxiety1 (chief complaint)C OVID1 (chief complaint)t obacco (chief complaint)G ERD1 (chief complaint) Viral infectionTobacco useGeneralized Anxiety DisorderGERD without esophagitisChronic pain syndrome 0 1 Ankur Ballard [address], [place], [place], [address] , [place]. tel:[phone] OFFICE/OUTPA TIENT VISIT, [facility], [address], [address], [place] tel:[phone] [facility] COVID (chief complaint) Viral infection Zen- 1 Ankur Ballard [address], [place], [place], [address] , [place]. [phone] OFFICE/OUTPA TIENT VISIT, [facility], [address], [place], [place], [address], [place] tel:[phone] [facility] pain (chief complaint)a nxiety1 (chief complaint)H LP (chief complaint)t obacco1 (chief complaint) Chronic pain syndromeGeneralize d Anxiety DisorderHyperlipid emiaTobacco use Zen-0 1 Ankur Ballard [address], [place], [place], [address] , [place]. tel:[phone] OFFICE/OUTPA TIENT VISIT, [facility], [address], [place], [place], [address], [place] tel:[phone] [facility] pain (chief complaint)a nxiety1 (chief complaint) Chronic pain syndromeGeneralize d Anxiety Disorder 0 1 Ankur Cifuentes. [address], [place], [place], [address] , [place]. tel:[phone] OFFICE/OUTPA TIENT VISIT, [facility], [address], [place], [place], [address], [place] tel:[phone] [facility] pain (chief complaint)a nxiety1 (chief complaint)D M (chief complaint)G ERD1 (chief complaint) Generalized Anxiety DisorderChronic pain syndromeType 2 diabetes mellitus with diabetic mononeuropathyHype rlipidemiaGERD without esophagitis Apr-0 1 Ankur Cifuentes. [address], [place], [place], [address] , [place]. tel:[phone] OFFICE/OUTPA TIENT VISIT, [facility], [address], [place], [place], [address], [place] tel:[phone] [facility] pain (chief complaint)a nxiety1 (chief complaint)D M (chief complaint)t hyroid1 (chief complaint) Type 2 diabetes mellitus with diabetic neuropathyGenerali zed Anxiety DisorderChronic pain syndromeDisorder of thyroid, unspecifiedPolyp of colonOther specified disorder of bone density Dec-0 1 Ankur Ballard [address], [place], [place], [address] , . tel:[phone] OFFICE/OUTPA TIENT VISIT, [facility], [address] [place], [address], tel:[phone] [facility] pain (chief complaint)a nxiety1 (chief complaint) Chronic pain syndromeGeneralize d Anxiety Disorder 1 Ankur Cifuentes. [address], [place], [place], [address] , [place]. tel:[phone] OFFICE/OUTPA TIENT VISIT, [facility], [address] [place], [address], [phone] [facility] pain (chief complaint)a nxiety1 (chief complaint)c ataract1 (chief complaint)G ERD1 (chief complaint) Chronic pain syndromeGeneralize d Anxiety DisorderGERD without esophagitisCatarac t with neovascularization , bilateral 0 Ankur Cifuentes. [address], [place], [place], [address] , [place]. tel:[phone] OFFICE/OUTPA TIENT VISIT, [facility], [address] [place], [address], [phone] [facility] pain (chief complaint)a nxiety1 (chief complaint) Chronic pain syndromeGeneralize d Anxiety Disorder 0 Ankur Cifuentes. [address], [address] , [place]. tel:[phone] OFFICE/OUTPA TIENT VISIT, [facility], [address] [place], [address], [place] tel:[phone] [facility] DM (chief complaint)G ERD1 (chief complaint)o steopenia1 (chief complaint)p ain1 (chief complaint)a nxiety1 (chief complaint) Type 2 diabetes mellitus with diabetic neuropathyPolyp of colonGeneralized Anxiety DisorderChronic pain syndromeOther specified disorder of bone density 0 Ankur Ballard [address], [place], [place], [address] , [place]. tel:[phone] OFFICE/OUTPA TIENT VISIT, [facility], [address], [place], [place], [address], [place] tel:[phone] [facility] pain (chief complaint)a nxiety1 (chief complaint)D M (chief complaint)H TN (chief complaint) Type 2 diabetes mellitus with diabetic neuropathyChronic pain syndromeGeneralize d Anxiety DisorderEssential (primary) hypertension 0 Ankur Ballard [address], [place], [place], [address] , [place]. tel:[phone] OFFICE/OUTPA TIENT VISIT, [facility], [address], [place], [place], [address], [place] tel:[phone] [facility] pain (chief complaint)D M (chief complaint)G ERD1 (chief complaint)a nxity1 (chief complaint)c olon polyp1 (chief complaint) Type 2 diabetes mellitus with diabetic neuropathyPolyp of colonChronic pain syndromeGERD w/o esophagitisGeneral ized Anxiety Disorder 0 Ankur Ballard [address], [place], [place], [address] , [place]. tel:[phone] OFFICE/OUTPA TIENT VISIT, [facility], [address], [address], [place] tel:[phone] [facility] DM (chief complaint)a nxiety1 (chief complaint)p ain (chief complaint)c olonscopy1 (chief complaint) Polyp of colonType 2 diabetes mellitus with diabetic neuropathyChronic pain syndromeGeneralize d Anxiety Disorder 0 Ankur Ballard [address], [place], [place], [address] , [place]. tel:[phone] [facility], [address], [place], [place], [address], [place] tel:[phone] [facility] No Information 0 Ankur Cifuentes. [address], [place], [place], [address] , [place]. tel:[phone] OFFICE/OUTPA TIENT VISIT, [facility], [address], [place], [place], [address], [place] tel:[phone] [facility] DM (chief complaint)a nxiety1 (chief complaint)p ain (chief complaint)p olyp1 (chief complaint) Generalized Anxiety DisorderChronic pain syndromePolyp of colonType 2 diabetes mellitus with diabetic neuropathyTobacco use 0 Ankur Cifuentes. [address], [place], [place], [address] , [place]. tel:[phone] OFFICE/OUTPA TIENT VISIT, [facility], [address], [place], [place], [address], [place] tel:[phone] [facility] DM (chief complaint)H LP (chief complaint)G ERD1 (chief complaint)p ain1 (chief complaint)a hycr9rz1 (chief complaint) Chronic pain syndromeGeneralize d Anxiety DisorderType 2 diabetes mellitus with diabetic mononeuropathyHype rlipidemiaGERD without esophagitis 0 Ankur Cifuentes. [address], [place], [place], [address] , [place]. tel:[phone] OFFICE/OUTPA TIENT VISIT, [facility], [address], [place], [place], [address], [place] tel:[phone] [facility] pain (chief complaint)a nxiety1 (chief complaint)D M (chief complaint)b one (chief complaint) Chronic pain syndromeGeneralize d Anxiety DisorderEncounter for screening for osteoporosisType 2 diabetes mellitus with diabetic mononeuropathy 0 Ankur Cifuentes. [address], [place], [place], [address] , [place]. tel:[phone] OFFICE/OUTPA TIENT VISIT, [facility], [address], [place], [place], [address], tel:[phone] [facility] anxiety1 (chief complaint)b ack pain1 (chief complaint)D M (chief complaint)p olyp1 (chief complaint) Generalized Anxiety DisorderChronic pain syndromeType 2 diabetes mellitus with diabetic neuropathyPolyp of colon Jan-0 - 0 Ankur Cifuentes. [address], [place], [place], [address] , [place]. [phone] OFFICE/OUTPA TIENT VISIT, EST [facility], [address], [place], [place], [address], [place] tel:[phone] [facility] thyroid1 (chief complaint)D M1 (chief complaint)H yponatremia 1 (chief complaint)a lk phos1 (chief complaint)p ain (chief complaint) Disorder of thyroid, unspecifiedType 2 diabetes mellitus with diabetic neuropathyChronic pain syndromeGeneralize d Anxiety DisorderHyponatrem ia Dec- 0 Ankur Ballard [address], [place], [place], [address] , [place]. [phone] OFFICE/OUTPA TIENT VISIT, EST [facility], [address], [place], [place], [address], [place] tel:[phone] [facility] anxiety1 (chief complaint)p ain1 (chief complaint)G ERD1 (chief complaint)D M (chief complaint) Chronic pain syndromeGERD without esophagitisGeneral ized Anxiety DisorderType 2 diabetes mellitus with diabetic neuropathy 0 Ankur Cifuentes. [address], [place], [place], [address] , [place]. tel:[phone] PREV VISIT, EST, AGE 40-64 [facility], [address], [place], [place], [address], [place] tel:[phone] [facility] physical (chief complaint) Encounter for general adult medical exam w abnormal findingsType 2 diabetes mellitus with diabetic neuropathyHyperlip idemiaHematuriaChr onic pain syndromeGERD without esophagitisGeneral ized Anxiety Disorder 0-202 0 Ankur Cifuentes. [address], [place], [place], [address] , [place]. tel:[phone] OFFICE/OUTPA TIENT VISIT, [facility], [address], [place], [place], [address], [place] tel:[phone] [facility] anxiety1 (chief complaint)c hronic pain1 (chief complaint)t obacco1 (chief complaint) Body mass index (BMI) 40.0-44.9, adultGeneralized Anxiety DisorderChronic pain syndromeTobacco use 9 Ankur Cifuentes. [address], [place], [place], [address] , [place]. tel:[phone] Referring Provider: Karina Blair [facility] A, [place], [place], [address]. tel:[phone] OFFICE/OUTPA TIENT VISIT, [facility], [address], [place], [place], [address], [place] tel:[phone] [facility] anxiety1 (chief complaint)c hronic pain1 (chief complaint)G ERD (chief complaint)G ERD! (chief complaint) Chronic pain syndromeGeneralize d Anxiety DisorderGERD without esophagitis 9 Ankur Cifuentes. [address], [place], [place], [address] , [place]. tel:[phone] OFFICE/OUTPA TIENT VISIT, [facility], [address], [place], [place], [address], [place] tel:[phone] [facility] anxiety1 (chief complaint)c hronic pain1 (chief complaint)f oot pain1 (chief complaint)D M (chief complaint) Chronic pain syndromeGeneralize d Anxiety DisorderType 2 diabetes mellitus with diabetic neuropathyPain in right foot 9 Ankur Cifuentes. [address], [place], [place], [address] , [place]. tel:[phone] Referring Provider: Karina Blair [facility] A, [place], [place], [address]. tel:[phone] OFFICE/OUTPA TIENT VISIT, [facility], [address], [place], [place], [address], [place] tel:[phone] [facility] dM (chief complaint)a nxiety1 (chief complaint)c hronic pain (chief complaint)f oot pain1 (chief complaint) Type 2 diabetes mellitus with diabetic neuropathyChronic pain syndromeGeneralize d Anxiety DisorderPain in right foot 9 Ankur Cifuentes. [address], [place], [place], [address] , [place]. tel:[phone] Referring Provider: Karina Blair [facility] [address], [place], [place], [address]. tel:[phone] OFFICE/OUTPA TIENT VISIT, [facility], [address], [place], [place], [address], [place] [phone] [facility] pain1 (chief complaint)a nxiety1 (chief complaint)G ERD1 (chief complaint)D M (chief complaint) Type 2 diabetes mellitus with diabetic neuropathyHematuri aChronic pain syndromeGERD without esophagitisGeneral ized Anxiety Disorder 9 Ankur Cifuentes. [address], [place], [place], [address] , [place]. [phone] OFFICE/OUTPA TIENT VISIT, [facility], [address], [place], [place], [address], [place] tel:[phone] [facility] anxiety1 (chief complaint)b ack apin1 (chief complaint)D M (chief complaint) Chronic pain syndromeGeneralize d Anxiety DisorderType 2 diabetes mellitus with diabetic neuropathy 9 Ankur Cifuentes. [address], [place], [place], [address] , [place]. tel:[phone] Referring Provider: Karina Blair [address], [place], [place], [address]. tel:[phone] OFFICE/OUTPA TIENT VISIT, [facility], [address], [place], [place], [address], [place] tel:[phone] [facility] DM (chief complaint)a nxiety1 (chief complaint)b ack pain1 (chief complaint)h ematuria1 (chief complaint)H LP (chief complaint) Type 2 diabetes mellitus with diabetic neuropathyGenerali zed Anxiety DisorderChronic pain syndromeHematuriaH yperlipidemia 9 Ankur Cifuentes. [address], [place], [place], [address] , [place]. tel:[phone] OFFICE/OUTPA TIENT VISIT, [facility], [address], [place], [place], [address], [place] tel:[phone] [facility] DM (chief complaint)h ematuria1 (chief complaint)a nxiety1 (chief complaint)c hronic pain1 (chief complaint)G ERD1 (chief complaint) Type 2 diabetes mellitus without complicationsHemat uriaChronic pain syndromeGERD without esophagitisGeneral ized Anxiety Disorder 9 Ankur Cifuentes. [address], [place], [place], [address] , [place]. tel:[phone] Referring Provider: Karina Blair [address], [place], [place], [address]. tel:[phone] OFFICE/OUTPA TIENT VISIT, [facility], [address], [place], [place], [address], [place] tel:[phone] [facility] chronic pain (chief complaint)a nxiety1 (chief complaint)D M (chief complaint) Type 2 diabetes mellitus with diabetic nephropathyGeneral ized Anxiety DisorderChronic pain syndrome 9 Ankur Cifuentes. [address], [place], [place], [address] , [place]. tel:[phone] Referring Provider: Karina Blair [address], [place], [place], [address]. tel:[phone] OFFICE/OUTPA TIENT VISIT, [facility], [address], [place], [place], [address], [place] tel:[phone] [facility] hematuria1 (chief complaint)f atty liver (chief complaint)D M (chief complaint)H LP (chief complaint) HematuriaHyperlipi demiaFatty liverType 2 diabetes mellitus without complications Jan- 9 Ankur Cifuentes. [address], [place], [place], [address] , [place]. [phone] Referring Provider: Karina Blair [address], [place], [place], [address]. tel:[phone] OFFICE/OUTPA TIENT VISIT, [facility], [address], [place], [place], [address], [place] tel:[phone] [facility] chronic pain1 (chief complaint)a nxiety1 (chief complaint)u rinary frequency1 (chief complaint) Urinary tract infectionChronic pain syndromeGeneralize d Anxiety DisorderEncounter for oth screening for malignant neoplasm of breast Jan-0 9 Ankur Cifuentes. [address], [place], [place], [address] , [place]. [phone] Referring Provider: Karina Blair [address], [place], [place], [address]. tel:[phone] PREV VISIT, EST, AGE 40-64 [facility], [address], [place], [place], [address], [place] tel:[phone] [facility] Physical (chief complaint) Encounter for general adult medical exam w abnormal findingsType 2 diabetes mellitus with diabetic nephropathyEssenti al (primary) hypertensionInsomn iaHyperlipidemiaCh ronic pain syndromeGeneralize d Anxiety DisorderGERD without esophagitis Dec-0 9 Ankur Ballard [address], [place], [place], [address] , [place]. tel:[phone] Referring Provider: Karina Blair [address], [place], [place], [address]. tel:[phone] OFFICE/OUTPA TIENT VISIT, EST [facility], [address], [place], [place], [address], tel:[phone] [facility] HTN (chief complaint)C hronic pain (chief complaint)a nxiety1 (chief complaint)G ERD1 (chief complaint)D M (chief complaint)i nsomnia1 (chief complaint) Type 2 diabetes mellitus with diabetic nephropathyEssenti al (primary) hypertensionGenera lized Anxiety DisorderChronic pain syndromeGERD without esophagitisInsomni a 9 Ankur Ballard [address], [place], [place], [address] , . [phone] OFFICE/OUTPA TIENT VISIT, [facility], [address] [place], [address], tel:[phone] [facility] GERD1 (chief complaint) GERD w/o esophagitis 8 Ankur Ballard [address], [place], [place], [address] , [place]. [phone] OFFICE/OUTPA TIENT VISIT, [facility], [address] [place], [address], [place] tel:[phone] [facility] chronic pain1 (chief complaint)a nxiety1 (chief complaint)l medina (chief complaint)D M (chief complaint) Generalized Anxiety DisorderChronic pain syndromeType 2 diabetes mellitus with diabetic nephropathyTobacco use 8 Ankur Ballard [address], [place], [place], [address] , . [phone] Referring Provider: Karina Blair [address], [place], [place], [address]. tel:[phone] OFFICE/OUTPA TIENT VISIT, [facility], [address] [place], [address], tel:[phone] [facility] DM (chief complaint)L FT1 (chief complaint)H LP (chief complaint)h ematuria1 (chief complaint)p roteinuria1 (chief complaint) Type 2 diabetes mellitus with diabetic nephropathyFatty liverHyperlipidemi aHematuriaChronic pain syndromeGeneralize d Anxiety DisorderScreening for lung ca 8 Ankur Ballard [address], [facility] A, [place], [place], [address] , . tel:[phone] Referring Provider: Karina Blair [address] [facility] A, [place], [place], [address]. tel:[phone] OFFICE/OUTPA TIENT VISIT, [facility], [address] [place], [address], [place] tel:[phone] [facility] DM (chief complaint)b ack pain1 (chief complaint)a nxiety1 (chief complaint)H LP1 (chief complaint)f oot pain1 (chief complaint)H Tn (chief complaint) Chronic pain syndromeGeneralize d Anxiety DisorderHyperlipid emiaType 2 diabetes mellitus without complicationsEssen tial (primary) hypertensionScreen ing for lung ca 8 Ankur Ballard [address], [place], [place], [address] , [place]. [phone] OFFICE/OUTPA TIENT VISIT, [facility], [address] [place], [address], [place] tel:[phone] [facility] chronic pain (chief complaint)a nxiety1 (chief complaint) Chronic pain syndromeGeneralize d Anxiety Disorder 8 [facility] [facility] [place] [address] , [place]. tel:[phone] Referring Provider: Karina Blair [address] [facility] [place], [address]. tel:[phone] OFFICE/OUTPA TIENT VISIT, [facility], [address] [place], [address], [place] tel:[phone] [facility] anxiety1 (chief complaint)c hronic pian1 (chief complaint)G ERD1 (chief complaint)f oot pain1 (chief complaint)H LP (chief complaint) Chronic pain syndromeGeneralize d Anxiety DisorderGERD without esophagitisFollicu lar cyst of subcutaneous tissueHyperlipidem iaType 2 diabetes mellitus without complicationsRenal disease 8 Ankur Cifuentes. [address], [place], [place], [address] , [place]. tel:[phone] Referring Provider: Esau Pascual, [address], [place], [place], [address]. tel:[phone] OFFICE/OUTPA TIENT VISIT, [facility], [address], [place], [place], [address], [place] [phone] [facility] HLP (chief complaint)c hronic pain1 (chief complaint)D M (chief complaint)l medina CT (chief complaint)H TN (chief complaint) Essential (primary) hypertensionType 2 diabetes mellitus without complicationsHyper lipidemiaChronic pain syndromeGeneralize d Anxiety DisorderScreening for lung caInsomnia 8 Ankur Cifuentes. [address], [place], [place], [address] , [place]. [phone] Referring Provider: Esau Pascual [address], [place], [place], [address]. tel:[phone] OFFICE/OUTPA TIENT VISIT, [facility] [facility], [address], [place], [place], [address], [place] tel:[phone] [facility] chronic pain1 (chief complaint)a nxity1 (chief complaint) Body mass index (BMI) 40.0-44.9, adultChronic pain syndromeGeneralize d Anxiety Disorder 8 Ankur Cifuentes. [address], [place], [place], [address] , [place]. tel:[phone] Referring Provider: Karina Blair [address], [place], [place], [address]. tel:[phone] OFFICE/OUTPA TIENT VISIT, [facility], [address], [place], [place], [address], [place] tel:[phone] [facility] chronic pain1 (chief complaint)a nxiety1 (chief complaint)D M (chief complaint)l medina CA (chief complaint) Body mass index (BMI) 40.0-44.9, adultGeneralized Anxiety DisorderChronic pain syndromeType 2 diabetes mellitus without complicationsScree austin for lung ca Jan-1 0-201 8 Ankur Cifuentes. [address], [address], [place], [place], [address] , [place]. [phone] Referring Provider: Karina Blair [address], [place], [place], [address]. tel:[phone] OFFICE/OUTPA TIENT VISIT, [facility], [address], [place], [place], [address], [place] [phone] [facility] vaginal itching1 (chief complaint) Acute vulvovaginitisUrin daysi tract infection Jan-0 3-201 8 Ankur Cifuentes. [address], [address], [place], [place], [address] , [place]. [phone] Referring Provider: Karina Blair [address], [place], [place], [address]. tel:[phone] OFFICE/OUTPA TIENT VISIT, [facility], [address], [place], [place], [address], [place] [phone] [facility] chronic pain1 (chief complaint)a nxiety1 (chief complaint)v iginal dischage1 (chief complaint) Chronic pain syndromeAcute vulvovaginitisGene ralized Anxiety Disorder Dec- 3-201 8 Ankur Cifuentes. [address], [place], [place], [address] , [place]. [phone] Referring Provider: Karina Blair [address], [place], [place], [address]. tel:[phone] PREV VISIT, EST, AGE 40-64 [facility], [address], [place], [place], [address], [place] tel:[phone] [facility] PHysical (chief complaint) Encounter for general adult medical exam w abnormal findingsType 2 diabetes mellitus without complicationsInsom niaGERD w/o esophagitis 8 Ankur Cifuentes. [address], [place], [place], [address] , [place]. tel:[phone] Referring Provider: Karina Blair [address], [place], [place], [address]. tel:[phone] OFFICE/OUTPA TIENT VISIT, [facility], [address], [place], [place], [address], [place] tel:[phone] [facility] insomnia1 (chief complaint)D M (chief complaint)c hronic pain1 (chief complaint)a nxiety1 (chief complaint) Generalized Anxiety DisorderType 2 diabetes mellitus without complicationsInsom niaChronic pain syndrome 8 Ankur Ballard [address], [place], [place], [address] , [place]. tel:[phone] Referring Provider: Karina Blair [address], [place], [place], [address]. tel:[phone] OFFICE/OUTPA TIENT VISIT, [facility], [address], [address], [place] tel:[phone] [facility] HLP (chief complaint)d m (chief complaint)b ack pain1 (chief complaint)a nxiety1 (chief complaint) Chronic pain syndromeGeneralize d Anxiety DisorderHyperlipid emiaType 2 diabetes mellitus without complications 7 Ankur Ballard [address], [place], [place], [address] , [place]. tel:[phone] Referring Provider: Karina Blair [address], [place], [place], [address]. tel:[phone] OFFICE/OUTPA TIENT VISIT, [facility], [address], [place], [place], [address], [place] tel:[phone] [facility] anxiety1 (chief complaint)b ack pain1 (chief complaint)G ERD1 (chief complaint)c ough1 (chief complaint) Generalized Anxiety DisorderChronic pain syndromeGERD w/o esophagitisInconcl usive mammogram 7 Ankur Cifuentes. [address], [place], [place], [address] , [place]. [phone] Referring Provider: Karina Blair [address], [place], [place], [address]. tel:[phone] OFFICE/OUTPA TIENT VISIT, [facility], [address], [place], [place], [address], [place] tel:[phone] [facility] breast nodule1 (chief complaint)H TN (chief complaint)a nxiety1 (chief complaint)b ack pain1 (chief complaint) Chronic pain syndromeGeneralize d Anxiety DisorderEssential (primary) hypertensionUnspec ified lump in right breast, subareolar 7 Ankur Cifuentes. [address], [place], [place], [address] , [place]. [phone] Referring Provider: Karina Blair [address], [place], [place], [address]. tel:[phone] OFFICE/OUTPA TIENT VISIT, [facility], [address], [place], [place], [address], [place] [phone] [facility] back pain1 (chief complaint)a nxiety1 (chief complaint)m ammo (chief complaint)H TN (chief complaint) Essential (primary) hypertensionChroni c pain syndromeGeneralize d Anxiety DisorderEncounter for oth screening for malignant neoplasm of breast 7 Ankur Cifuentes. [address], [place], [place], [address] , [place]. [phone] Referring Provider: Karina Blair [address], [place], [place], [address]. tel:[phone] OFFICE/OUTPA TIENT VISIT, [facility], [address], [place], [place], [address], [place] tel:[phone] [facility] COPD (chief complaint)a nxiety1 (chief complaint)G ERD1 (chief complaint)b ack pain1 (chief complaint)H LP (chief complaint) HyperlipidemiaEmph ysemaGERD w/o esophagitisChronic pain syndrome 7 Ankur Cifuentes. [address], [place], [place], [address] , [place]. tel:[phone] Referring Provider: Karina Blair [address], [place], [place], [address]. tel:[phone] OFFICE/OUTPA TIENT VISIT, [facility], [address], [place], [place], [address], [place] tel:[phone] [facility] back pain1 (chief complaint)a nxiety1 (chief complaint)i nsmonia1 (chief complaint)h TN1 (chief complaint)o besity1 (chief complaint) Essential (primary) hypertensionChroni c pain syndromeGeneralize d Anxiety DisorderBody mass index (BMI) 40.0-44.9, adult 7 Ankur Cifuentes. [address], [place], [place], [address] , [place]. tel:[phone] Referring Provider: Karina Blair [address], [place], [place], [address]. tel:[phone] OFFICE/OUTPA TIENT VISIT, [facility], [address], [place], [place], [address], [place] tel:[phone] [facility] anxiety1 (chief complaint)b ack pain1 (chief complaint)H LP (chief complaint)D M1 (chief complaint) Chronic pain syndromeGeneralize d Anxiety DisorderType 2 diabetes mellitus without complicationsHyper lipidemia Ankur Cifuentes. [address], [place], [place], [address] , [place]. tel:[phone] Referring Provider: Karina Blair [address], [place], [place], [address]. tel:[phone] OFFICE/OUTPA TIENT VISIT, [facility], [address], [place], [place], [address], [place] tel:[phone] [facility] anxiety1 (chief complaint)c hronic pain1 (chief complaint)G ERD1 (chief complaint) Chronic pain syndromeAnxiolytic dependenceGERD without esophagitisRenal disease Zen-0 7 Ankur Cifuentes. [address], [place], [place], [address] , [place]. tel:[phone] Referring Provider: Esau Pascual, [address], [place], [place], [address]. tel:[phone] OFFICE/OUTPA TIENT VISIT, [facility], [address], [place], [place], [address], [place] tel:[phone] [facility] anxiety1 (chief complaint)b ack pain1 (chief complaint) Chronic pain syndromeAnxiolytic dependence February-0 7 Ankur Cifuentes. [address], [place], [place], [address] , [place]. tel:[phone] Referring Provider: Karina Blair [address], [place], [place], [address]. tel:[phone] OFFICE/OUTPA TIENT VISIT, [facility], [address], [place], [place], [address], [place] tel:[phone] [facility] back pain1 (chief complaint)a nxiety1 (chief complaint)r renal disease1 (chief complaint)o besity1 (chief complaint)H LP (chief complaint) HyperlipidemiaChro livan pain syndromeRenal diseaseAnxiolytic dependence Apr-0 7 Ankur Cifuentes. [address], [place], [place], [address] , [place]. tel:[phone] Referring Provider: Esau Pascual [address], [place], [place], [address]. tel:[phone] OFFICE/OUTPA TIENT VISIT, [facility], [address], [place], [place], [address], [place] tel:[phone] [facility] back pain1 (chief complaint)a nxiety1 (chief complaint)G ERD1 (chief complaint)o beisty1 (chief complaint) GERD without esophagitisBody mass index (BMI) 40.0-44.9, adultChronic pain syndromeAnxiolytic dependence 7 Ankur Cifuentes. [address], [place], [place], [address] , [place]. tel:[phone] Referring Provider: Karina Blair [address], [place], [place], [address]. tel:[phone] PREV VISIT, EST, AGE 40-64 [facility], [address], [place], [place], [address], [place] tel:[phone] [facility] PHysical (chief complaint) Encounter for general adult medical exam w abnormal findingsCOPDRashBo dy mass index (BMI) 40.0-44.9, adult 7 Ankur Cifuentes. [address], [place], [place], [address] , [place]. tel:[phone] Referring Provider: Karina Blair [address], [place], [place], [address]. tel:[phone] OFFICE/OUTPA TIENT VISIT, EST [facility], [address], [place], [place], [address], [place] tel:[phone] [facility] chornic pain (chief complaint)a nxiety1 (chief complaint)t obacco1 (chief complaint) Chronic pain syndromeAnxiolytic dependenceTobacco use 7 Ankur Ballard [address], [place], [place], [address] , [place]. tel:[phone] Referring Provider: Karina Blair [address], [place], [place], [address]. tel:[phone] OFFICE/OUTPA TIENT VISIT, EST [facility], [address], [place], [place], [address], [place] tel:[phone] [facility] insomnia1 (chief complaint)c hronic pain1 (chief complaint)G ERD1 (chief complaint)a nxiety1 (chief complaint) InsomniaGERD without esophagitisAnxioly tic dependenceChronic pain syndrome 6 Ankur Cifuentes. [address], [place], [place], [address] , [place]. tel:[phone] Referring Provider: Esau Pascual, [address], [place], [place], [address]. tel:[phone] OFFICE/OUTPA TIENT VISIT, [facility], [address], [place], [place], [address], [place] tel:[phone] [facility] chornic pain (chief complaint)a nxiety1 (chief complaint) Chronic pain syndromeAnxiolytic dependence 6 Ankur Cifuentes. [address], [place], [place], [address] , [place]. [phone] Referring Provider: Karina Blair [address], [place], [place], [address]. tel:[phone] OFFICE/OUTPA TIENT VISIT, [facility], [address], [place], [place], [address], [place] tel:[phone] [facility] HTN (chief complaint)D M (chief complaint)c hronic pain1 (chief complaint)a nxiety1 (chief complaint) Essential (primary) hypertensionChroni c pain syndromeMetabolic syndromeAnxiolytic dependence 6 Ankur Cifuentes. [address], [place], [place], [address] , [place]. tel:[phone] Referring Provider: Esau Pascual [address], [place], [place], [address]. tel:[phone] OFFICE/OUTPA TIENT VISIT, [facility], [address], [place], [place], [address], [place] tel:[phone] [facility] DM (chief complaint)L FT (chief complaint)c hronic (chief complaint)G ERD1 (chief complaint) Type 2 diabetes mellitus without complicationsFatty liverRenal diseaseGERD w/o esophagitis Jun- 6 Ankur Cifuentes. [address], [place], [place], [address] , [place]. tel:[phone] Referring Provider: Karina Blair [address], [place], [place], [address]. tel:[phone] OFFICE/OUTPA TIENT VISIT, [facility], [address], [place], [place], [address], [place] tel:[phone] [facility] HLP (chief complaint)b ack pain1 (chief complaint)a nxiety1 (chief complaint)p redM (chief complaint) Chronic pain syndromeAnxiolytic dependenceHyperlip idemiaMetabolic syndrome 6 Ankur Ballard [address], [place], [place], [address] , [place]. tel:[phone] Referring Provider: Karina Blair [address], [place], [place], [address]. tel:[phone] OFFICE/OUTPA TIENT VISIT, [facility], [address], [place], [place], [address], [place] tel:[phone] [facility] chronic pain (chief complaint)a nxiety1 (chief complaint) Chronic pain syndromeAnxiolytic dependence 6 Ankur [address], [place], [place], [address] , [place]. tel:[phone] Referring Provider: Karina Blair [address], [place], [place], [address]. tel:[phone] OFFICE/OUTPA TIENT VISIT, [facility], [address], [place], [place], [address], [place] tel:[phone] [facility] chornic pain (chief complaint)G ERD1 (chief complaint)a nxiety1 (chief complaint)H LP (chief complaint) Chronic pain syndromeGERD without esophagitisHyperli pidemiaAnxiolytic dependence 6 Ankur Cifuentes. [address], [place], [place], [address] , [place]. tel:[phone] Referring Provider: Karina Blair [address], [place], [place], [address]. tel:[phone] OFFICE/OUTPA TIENT VISIT, [facility], [address], [place], [place], [address], [place] tel:[phone] [facility] anxiety1 (chief complaint)c hronic pain1 (chief complaint) Chronic pain syndromeAnxiolytic dependence Zen-0 2201 6 Ankur Cifuentes. [address], [place], [place], [address] , [place]. tel:[phone] Referring Provider: Karina Blair [address], [place], [place], [address]. tel:[phone] OFFICE/OUTPA TIENT VISIT, [facility], [address], [place], [place], [address], [place] tel:[phone] [facility] chronic pain (chief complaint)a nxiety1 (chief complaint) Chronic pain syndromeAnxiolytic dependence February-0 6 Ankur Cifuentes. [address], [place], [place], [address] , [place]. tel:[phone] Referring Provider: Karina Blair [address], [place], [place], [address]. tel:[phone] OFFICE/OUTPA TIENT VISIT, [facility], [address], [place], [place], [address], [place] tel:[phone] [facility] GERD1 (chief complaint)c hronic pain (chief complaint)a nxiety1 (chief complaint)H LP (chief complaint) GERD w/o esophagitisChronic pain syndromeAnxiolytic dependenceHyperlip idemia Apr-0 7201 6 Ankur Ballard [address], [place], [place], [address] , [place]. tel:[phone] Referring Provider: Karina Blair [address], [place], [place], [address]. tel:[phone] OFFICE/OUTPA TIENT VISIT, [facility], [address], [place], [place], [address], [place] tel:[phone] [facility] chronic pain (chief complaint)a nxiety1 (chief complaint)p reDM (chief complaint)s tomach burning (chief complaint) GERD without esophagitisChronic pain syndromeEncounter for oth screening for malignant neoplasm of breastAnxiolytic dependence 0 6 Ankur Cifuentes. [address], [place], [place], [address] , [place]. [phone] Referring Provider: Karina Blair [address], [place], [place], [address]. tel:[phone] OFFICE/OUTPA TIENT VISIT, [facility], [address], [place], [place], [address], [place] tel:[phone] [facility] insomnia1 (chief complaint)c hronic pain (chief complaint)a nxietiy1 (chief complaint)f atty liver1 (chief complaint) Sleep disorderFatty liverChronic pain syndromeAnxiolytic dependence 6 Ankur Cifuentes. [address], [place], [place], [address] , [place]. tel:[phone] Referring Provider: Karina Blair [address], [place], [place], [address]. tel:[phone] OFFICE/OUTPA TIENT VISIT, [facility], [address], [place], [place], [address], [place] tel:[phone] [facility] insomnia1 (chief complaint)c hronic pain1 (chief complaint)a nxiety1 (chief complaint) Other sleep apneaChronic pain syndromeAnxiolytic dependenceOther insomnia 6 Ankur Cifuentes. [address], [place], [place], [address] , [place]. tel:[phone] Referring Provider: Karina Blair [address], [place], [place], [address]. tel:[phone] OFFICE/OUTPA TIENT VISIT, [facility], [address], [place], [place], [address], [place] tel:[phone] [facility] chronic pain1 (chief complaint)a nxiety1 (chief complaint) Chronic pain syndromeAnxiolytic dependence 5 Ankur Cifuentes. [address], [place], [place], [address] , [place]. tel:[phone] Referring Provider: Esau Pascual, [address], [place], [place], [address]. tel:[phone] OFFICE/OUTPA TIENT VISIT, [facility], [address], [place], [place], [address], [place] tel:[phone] [facility] chronic pain (chief complaint)G ERD1 (chief complaint)a nxiety1 (chief complaint)i nsuline resistance (chief complaint) Fatty liverGERD without esophagitisMetabol ic syndromeChronic pain syndrome 5 Ankur Cifuetnes. [address], [place], [place], [address] , [place]. tel:[phone] Referring Provider: Karina Blair [address], [place], [place], [address]. tel:[phone] OFFICE/OUTPA TIENT VISIT, [facility], [address], [place], [place], [address], [place] tel:[phone] [facility] LFT1 (chief complaint)b ack pain1 (chief complaint)A nxeity1 (chief complaint)H TN1 (chief complaint) Fatty liverMixed hyperlipidemiaOthe r spondylosis, lumbar regionEssential (primary) hypertension 5 Ankur Cifuentes. [address], [place], [place], [address] , [place]. tel:[phone] Referring Provider: Karina Blair [address], [place], [place], [address]. tel:[phone] OFFICE/OUTPA TIENT VISIT, [facility], [address], [place], [place], [address], [place] tel:[phone] [facility] GERD (chief complaint)b ack pain (chief complaint)A nxeity (chief complaint)P reDM (chief complaint) Dietary surveillance and counselingDysmetab olic syndrome XLumbagoEsophageal refluxOther and unspecified hyperlipidemia Jun-3 0 5 Ankur Ballard [address], [place], [place], [address] , [place]. [phone] Referring Provider: Karina Blair [address], [place], [place], [address]. tel:[phone] OFFICE/OUTPA TIENT VISIT, [facility], [address], [place], [place], [address], [place] tel:[phone] [facility] gERD (chief complaint)A nxeity (chief complaint)c hronic pain (chief complaint)h ematuria (chief complaint)P reDM (chief complaint) Dietary surveillance and counselingDysmetab olic syndrome XEsophageal refluxOther chronic pain Jun-0 5 Ankur Ballard [address], [place], [place], [address] , [place]. tel:[phone] Referring Provider: Karina Blair [address], [place], [place], [address]. tel:[phone] OFFICE/OUTPA TIENT VISIT, [facility], [address], [place], [place], [address], [place] tel:[phone] [facility] chronic miriam (chief complaint)a nxiety (chief complaint)h ematuria (chief complaint)s ick (chief complaint) Hematuria, unspecifiedChronic painScreening for osteoporosisDietar y surveillance and counseling May-0 5 Ankur Ballard [address], [place], [place], [address] , [place]. tel:[phone] Referring Provider: Karina Blair [address], [place], [place], [address]. tel:[phone] OFFICE/OUTPA TIENT VISIT, [facility], [address], [place], [place], [address], [place] tel:[phone] [facility] chornic pain (chief complaint)a nxiety (chief complaint)h ematuria (chief complaint) Other nonspecific findings on examination of urineChronic painAbdominal pain 0 5 Ankur Cifuentes. [address], [place], [place], [address] , [place]. tel:[phone] Referring Provider: Karina Blair [address], [place], [place], [address]. tel:[phone] OFFICE/OUTPA TIENT VISIT, [facility], [address], [place], [place], [address], [place] tel:[phone] [facility] back pain (chief complaint)c hornic pain (chief complaint)A nxiety (chief complaint) Dietary surveillance and counselingUrinary tract infectionOther chronic painLumbago 5 Ankur Ballard [address], [place], [place], [address] , [place]. tel:[phone] Referring Provider: Karina Blair [address], [place], [place], [address]. tel:[phone] OFFICE/OUTPA TIENT VISIT, [facility], [address], [place], [place], [address], [place] tel:[phone] [facility] chronic pain (chief complaint)a nxiety (chief complaint)H LP (chief complaint) Dietary surveillance and counselingMetaboli c SyndromeCHRONIC PAIN NECOther and unspecified hyperlipidemia 5 Ankur Cifuentes. [address], [place], [place], [address] , [place]. tel:[phone] Referring Provider: Karina Blair [address], [place], [place], [address]. tel:[phone] OFFICE/OUTPA TIENT VISIT, [facility], [address], [place], [place], [address], [place] tel:[phone] [facility] chronic apin (chief complaint)A nxiety (chief complaint)G ERD (chief complaint)r berto (chief complaint) Dietary surveillance and counselingGERDRash and other nonspecific skin eruptionSpecial screening for osteoporosisCHRONI C PAIN NEC 0-201 5 Ankur Cifuentes. [address], [place], [place], [address] , [place]. tel:[phone] Referring Provider: Karina Blair [address], [place], [place], [address]. tel:[phone] OFFICE/OUTPA TIENT VISIT, [facility], [address], [place], [place], [address], [place] tel:[phone] [facility] chronic pain (chief complaint)a nxiety (chief complaint)M etabolic (chief complaint)c olon polyp (chief complaint) Dietary surveillance and counselingBenign neoplasm of colonMetabolic SyndromeBreast screening, unspecifiedOpioid type dependence, unspecified use 3 5 Ankur Cifuentes. [address], [place], [place], [address] , [place]. tel:[phone] Referring Provider: Karina Blair [address], [place], [place], [address]. tel:[phone] OFFICE/OUTPA TIENT VISIT, [facility], [address], [place], [place], [address], [place] tel:[phone] [facility] chornic pain (chief complaint)a nxiety (chief complaint)C ough (chief complaint)G ERD (chief complaint)i nsomnia (chief complaint) Dietary surveillance and counselingBronchit is, AcuteSleep ApneaInsomnia, OtherOpioid type dependence, unspecified use 3-201 5 Ankur Cifuentes. [address], [place], [place], [address] , [place]. tel:[phone] Referring Provider: Karina Blair [address], [place], [place], [address]. tel:[phone] OFFICE/OUTPA TIENT VISIT, [facility], [address], [place], [place], [address], [phone] [facility] chronic apin (chief complaint)a nxiety (chief complaint)h ematuria (chief complaint)G ERD (chief complaint) Dietary surveillance and counselingGERDHEMA TURIA NOSBenign neoplasm of colonCervicalgia 5 Ankur Cifuentes. [address], [place], [place], [address] , [place]. tel:[phone] Referring Provider: Esau Pascual [address] [place] [address], [place], [place], [address]. tel:[phone] OFFICE/OUTPA TIENT VISIT, [facility], [address], [place], [place], [address], tel:[phone] [facility] GERD (chief complaint)c hornic pain (chief complaint)a nxiety (chief complaint)m etabolic (chief complaint) Dietary surveillance and counselingMetaboli c SyndromeGERDCHRONI C PAIN NECFamily Hx of Cardiovascular Disease 4 Ankur Cifuentes. [address], [place], [place], [address] , [place]. [phone] Referring Provider: Karina Blair [facility] A, [place], [place], [address]. tel:[phone] OFFICE/OUTPA TIENT VISIT, [facility], [address], [place], [place], [address], [place] [phone] [facility] abd pain (chief complaint)c hronic pain (chief complaint)h ematuria (chief complaint)a nxiety (chief complaint)s ickl (chief complaint) Dietary surveillance and counselingAbdomina l PainHEMATURIA NOSAcute upper respiratory infections of other multiple sitesOther and unspecified hyperlipidemia [address] Ank[address] C[address]es. [address], [place], [place], [address] , [place]. tel:[phone] Referring Provider: Karina Blair [address], [place], [place], [address]. tel:[phone] OFFICE/OUTPA TIENT VISIT, [facility], [address], [place], [place], [address], tel:[phone] [facility] abdominal pain (chief complaint)c hornic pain (chief complaint)a nxiety (chief complaint)h ematuria (chief complaint)m etabolic (chief complaint) Dietary surveillance and counselingOther and unspecified hyperlipidemiaHEMA TURIA NOSMetabolic Syndrome [address] Ank[address]es. [address], [place], [place], [address] , [place]. tel:[phone] Referring Provider: Karina Blair [address], [place], [place], [address]. tel:[phone] OFFICE/OUTPA TIENT VISIT, [facility], [address], [place], [place], [address], [place] tel:[phone] [facility] abdominal pain (chief complaint)c hronic pain (chief complaint)a nxiety (chief complaint) Dietary surveillance and counselingAbdomina l PainCervicalgiaGER DFamily Hx of Cardiovascular Disease [address] Ank[address] Cif[address]es. [address], [place], [place], [address] , [place]. tel:[phone] Referring Provider: Karina Blair [address], [place], [place], [address]. tel:[phone] OFFICE/OUTPA TIENT VISIT, [facility], [address], [place], [place], [address], [place] tel:[phone] [facility] chornic pain (chief complaint)a nxiety (chief complaint)r berto (chief complaint) Dietary surveillance and counselingRash and other nonspecific skin eruptionCHRONIC PAIN NEC [address] Ankur Cif[address]es. [address], [place], [place], [address] , [place]. tel:[phone] Referring Provider: Karina Blair [address], [place], [place], [address]. tel:[phone] OFFICE/OUTPA TIENT VISIT, [facility], [address], [place], [place], [address], [place] tel:[phone] [facility] itchy rash (chief complaint)G ERD (chief complaint)a nxiety (chief complaint)c hronic pain (chief complaint) Dietary surveillance and counselingRash and other nonspecific skin eruptionGERDCHRONI C PAIN NEC [address] Ankur Cif[address]es. [address], [place], [place], [address] , [place]. tel:[phone] Referring Provider: Karina Blair [facility] A, [place], [place], [address]. tel:[phone] OFFICE/OUTPA TIENT VISIT, [facility], [address], [place], [place], [address], [place] tel:[phone] [facility] GERD (chief complaint)c hornic pain (chief complaint)a nxiety (chief complaint)h maty in chin (chief complaint) Dietary surveillance and counselingGERDCHRO LIVAN PAIN NECHirsutismHEMATU ZACH NOS 4 Ankur Ballard [address], [place], [place], [address] , [place]. tel:[phone] Referring Provider: Karina Blair [facility] A, [place], [place], [address]. tel:[phone] OFFICE/OUTPA TIENT VISIT, [facility], [address], [place], [place], [address], [place] tel:[phone] [facility] chornic pain (chief complaint)g lucose (chief complaint)h ematuria (chief complaint) Dietary surveillance and counselingMetaboli c SyndromeOther and unspecified hyperlipidemiaHEMA TURIA NOSDisturbance of skin sensation 4 Ankur Ballard [address], [place], [place], [address] , [place]. tel:[phone] Referring Provider: [address], [place], [place], [address]. tel:[phone] OFFICE/OUTPA TIENT VISIT, [facility], [address], [place], [place], [address], [place] tel:[phone] [facility] HLP (chief complaint)c hronic pain (chief complaint)H TN (chief complaint)a nxiety (chief complaint) Dietary surveillance and counselingOther and unspecified hyperlipidemiaHype rtension, UnspecifiedUnspeci fied chronic liver disease without mention of alcohol 4 Ankur Cifuentes. [address], [place], [place], [address] , [place]. [phone] Referring Provider: Karina Blair [address], [place], [place], [address]. tel:[phone] OFFICE/OUTPA TIENT VISIT, [facility], [address], [place], [place], [address], [place] tel:[phone] [facility] chronic pain (chief complaint)a nxiety (chief complaint) Dietary surveillance and counselingCHRONIC PAIN NEC 4 Ankur Cifuentes. [address], [place], [place], [address] , [place]. [phone] Referring Provider: Karina Blair [address], [place], [place], [address]. tel:[phone] OFFICE/OUTPA TIENT VISIT, [facility], [address], [place], [place], [address], [place] tel:[phone] [facility] insomnia (chief complaint)a nxiety (chief complaint)G ERD (chief complaint)c hronic pain (chief complaint) Dietary surveillance and counselingHyperten garrett, UnspecifiedInsomni a, OtherCervicalgiaGE RD 0 4 Ankur Cifuentes. [address], [place], [place], [address] , [place]. tel:[phone] Referring Provider: Esau Pascual [address], [place], [place], [address]. tel:[phone] OFFICE/OUTPA TIENT VISIT, [facility], [address], [place], [place], [address], [place] tel:[phone] [facility] chronic pain (chief complaint)G ERD (chief complaint)a nxiety (chief complaint) Dietary surveillance and counselingGERDCerv icalgia Fe 4 Ankur Cifuentes. [address], [place], [place], [address] , [place]. tel:[phone] Referring Provider: Esau Pascual, [address], [place], [place], [address]. tel:[phone] OFFICE/OUTPA TIENT VISIT, [facility], [address], [place], [place], [address], [place] tel:[phone] [facility] chronic pain (chief complaint)a nxiety (chief complaint)G ERD (chief complaint)D M (chief complaint) Dietary surveillance and counselingGERDDiab etes Mellitus Type 2, UncomplicatedCHRON IC PAIN NEC 4 Ankur Cifuentes. [address], [place], [place], [address] , [place]. [phone] Referring Provider: Karina Blair [address], [place], [place], [address]. tel:[phone] OFFICE/OUTPA TIENT VISIT, [facility], [address], [place], [place], [address], [place] tel:[phone] [facility] chronic pain (chief complaint)H LP (chief complaint)I Nsomnia (chief complaint)a nxiety (chief complaint) Dietary surveillance and counselingOther and unspecified hyperlipidemiaCHRO LIVAN PAIN NECInsomnia, Other 3 Ankur Cifuentes. [address], [place], [place], [address] , [place]. [phone] Referring Provider: Karina Blair [address], [place], [place], [address]. tel:[phone] OFFICE/OUTPA TIENT VISIT, [facility], [address], [place], [place], [address], [place] tel:[phone] [facility] DM (chief complaint)n flo pain (chief complaint)a nxiety (chief complaint)i nsomnia (chief complaint) Dietary surveillance and counselingDiabetes Mellitus Type 2, UncomplicatedCervi calgiaInsomnia, Other 3 Ankur Ballard [address], [place], [place], [address] , [place]. tel:[phone] Referring Provider: Karina Blair [address], [place], [place], [address]. tel:[phone] OFFICE/OUTPA TIENT VISIT, [facility], [address], [place], [place], [address], [place] tel:[phone] [facility] insomani (chief complaint)a nxiety (chief complaint)D M (chief complaint) Dietary surveillance and counselingHyperten garrett, UnspecifiedOther and unspecified hyperlipidemiaDiab etes Mellitus Type 2, UncomplicatedCHRON IC PAIN NEC 3 Ankur Ballard [address], [place], [place], [address] , [place]. tel:[phone] Referring Provider: Karina Blair [address], [place], [place], [address]. tel:[phone] OFFICE/OUTPA TIENT VISIT, [facility], [address], [place], [place], [address], [place] tel:[phone] [facility] chornic pain (chief complaint)a nxiety (chief complaint)i nsomnia (chief complaint) Dietary surveillance and counselingGenerali zed anxiety disorderUnspecifie d chronic liver disease without mention of alcoholDiabetes Mellitus Type 2, UncomplicatedOther and unspecified hyperlipidemia 3 Ankur Ballard [address], [place], [place], [address] , [place]. tel:[phone] Referring Provider: Karina Blair [address], [place], [place], [address]. tel:[phone] OFFICE/OUTPA TIENT VISIT, [facility], [address], [place], [place], [address], [place] [phone] [facility] chronic pain (chief complaint)a nxiety (chief complaint)L FT (chief complaint) Dietary surveillance and counselingCHRONIC PAIN NECGeneralized anxiety disorderUnspecifie d chronic liver disease without mention of alcohol 3 Ankur Cifuentes. [address], [place], [place], [address] , [place]. [phone] Referring Provider: Karina Blair [facility] A, [place], [place], [address]. tel:[phone] OFFICE/OUTPA TIENT VISIT, [facility], [address], [place], [place], [address], [place] tel:[phone] [facility] knee pain (chief complaint)E levated LFT (chief complaint)a nxiety (chief complaint) Dietary surveillance and counselingUnspecif ied chronic liver disease without mention of alcoholPain in joint involving lower legCervicalgia 3 Ankur Cifuentes. [address], [place], [place], [address] , [place]. [phone] Referring Provider: Karina Blair [address], [place], [place], [address]. tel:[phone] OFFICE/OUTPA TIENT VISIT, [facility], [address], [place], [place], [address], [place] [phone] [facility] DM (chief complaint)k nee pain (chief complaint)H LP (chief complaint)L FT (chief complaint) Dietary surveillance and counselingDiabetes Mellitus Type 2, UncomplicatedOther and unspecified hyperlipidemiaUnsp ecified chronic liver disease without mention of alcoholPain in joint involving lower leg 3 Ankur Cifuentes. [address], [place], [place], [address] , [place]. [phone] Referring Provider: Esau Pascual, [address], [place], [place], [address]. tel:[phone] OFFICE/OUTPA TIENT VISIT, [facility], [address], [place], [place], [address], [place] tel:[phone] [facility] neck pain (chief complaint)a nxiety (chief complaint) Dietary surveillance and counselingCHRONIC PAIN NEC February- 3 Ankur Cifuentes. [address], [place], [place], [address] , [place]. [phone] Referring Provider: Esau Pascual, [address], [place], [place], [address]. tel:[phone] OFFICE/OUTPA TIENT VISIT, [facility], [address], [place], [place], [address], [place] tel:[phone] [facility] chronic pain (chief complaint)a nxiety (chief complaint)H TN (chief complaint) Dietary surveillance and counselingDiabetes Mellitus Type 2, UncomplicatedHyper tension, UnspecifiedOther and unspecified hyperlipidemia 3 Ankur Cifuentes. [address], [place], [place], [address] , [place]. [phone] Referring Provider: Karina Blair [address], [place], [place], [address]. tel:[phone] OFFICE/OUTPA TIENT VISIT, [facility], [address], [place], [place], [address], [place] tel:[phone] [facility] Neck pain (chief complaint)a nxiety (chief complaint) Dietary surveillance and counselingHyperten garrett, UnspecifiedCHRONIC PAIN NECGeneralized anxiety disorder 3 Ankur Cifuentes. [address], [place], [place], [address] , [place]. [phone] Referring Provider: Esau Pascual, [address], [place], [place], [address]. tel:[phone] OFFICE/OUTPA TIENT VISIT, [facility], [address], [place], [place], [address], [place] tel:[phone] [facility] DM (chief complaint)n flo pain (chief complaint)H LP (chief complaint) Dietary surveillance and counselingCHRONIC PAIN NECDiabetes Mellitus, Adult Onset, UncontrolledOther and unspecified hyperlipidemia 3 Ankur Cifuentes. [address], [place], [place], [address] , [place]. tel:[phone] Referring Provider: Esau Pascual, [address], [place], [place], [address]. tel:[phone] OFFICE/OUTPA TIENT VISIT, [facility], [address], [place], [place], [address], [place] tel:[phone] [facility] chronic pain (chief complaint)a nxiety (chief complaint) Dietary surveillance and counselingCHRONIC PAIN NECDiabetes Mellitus, Adult Onset, UncontrolledHypert ension, Unspecified 3 Ankur Cifuentes. [address], [place], [place], [address] , [place]. tel:[phone] Referring Provider: Karina Blair [address], [place], [place], [address]. tel:[phone] PREV VISIT, EST, AGE 40-64 [facility], [address], [place], [place], [address], [place] tel:[phone] [facility] PHysical (chief complaint) Dietary surveillance and counselingRoutine Medical ExamRoutine Medical Exam 2 Ankur Cifuentes. [address], [place], [place], [address] , [place]. tel:[phone] Referring Provider: Karina Blair [address], [place], [place], [address]. tel:[phone] OFFICE/OUTPA TIENT VISIT, EST [facility], [address], [place], [place], [address], [place] tel:[phone] [facility] letter (chief complaint) CHRONIC PAIN NECDiabetes Mellitus Type 2, Uncomplicated Sep- 2 Ankur Cifuentes. [address], [place], [place], [address] , . tel:[phone] Referring Provider: Karina Blair [address], [place], [place], [address]. tel:[phone] OFFICE/OUTPA TIENT VISIT, [facility], [address], [place], [place], [address], [place] tel:[phone] [facility] neck pain (chief complaint)a nxiety (chief complaint) Dietary surveillance and counselingCHRONIC PAIN NECGeneralized anxiety disorder 2 Ankur Cifuentes. [address], [place], [place], [address] , [place]. tel:[phone] Referring Provider: Karina Blair [address] [facility] [place], [address]. tel:[phone] OFFICE/OUTPA TIENT VISIT, [facility], [address], [place], [place], [address], [place] tel:[phone] [facility] back pain (chief complaint)H TN (chief complaint)H LP (chief complaint)D M (chief complaint) Dietary surveillance and counselingDiabetes Mellitus Type 2, UncomplicatedHyper tension, UnspecifiedOther and unspecified hyperlipidemia 2 Ankur Ball[address], [address] , [place]. tel:[phone] Referring Provider: Karina Blair [address], [place], [place], [address]. tel:[phone] Family History Family Member Type Diagnosis Age At Onset Brother Problem (finding) Diabetes mellitus Father Problem (finding) Coronary artery disease 55 Mother Problem (finding) Diabetes mellitus Payers Payer name Insurance type Covered constitution party ID Authoriza tion(s) [facility] CI [id number] Social History Type Description Quantity Date Captured Comments Alcohol Use Details No Caffeine Use Details Unknown Tobacco Use Status Ex-cigarette smoker [id number] Smoking Status Former smoker Sex Female Vital Signs Date / Time: Height Weight BMI Pulse Rate Blood Pressure Temperature Respiratory Rate Body Surface Area Head Circumference BMI percentile Pulse Ox Inhaled Ox 10:51 AM 62.00 in 225.40 lbs 41.2 3 kg/m eter (2) 79 /min 120/70 mm[Hg] 97.3 F 16 /min Chief Complaint And Reason For Visit From encounter dated 04/30/2025 10:40'. anxiety1 (chief complaint). Description: Pt has chronic anxiety and depression Pt takes zoloft and xanax PRn and doing ok Pt denies any suicidal or homicidal thought Pt denies any crying spells pain (chief complaint). Description: Pt has chronic low back pain Pt denies any worsening pain. Pt denies any loss of bladder control pt failed NSAID and ultram. Pt takes norco PRN for pain. Pt has mild sciatica with leg neuropathy. Pt denies any saddle area paresthesia. Pt also takes neurontin anddoing ok.. thyroid nodule1 (chief complaint). Description: pt has thyroid nodule .Pt denies any dysphagia or neck pain Pt has high thyroid pt just had more lab done by endo and she is waiting for endo for review and potentially starting methimazole. Pt does not want to do thyroid uptake scan due to radiation Plan Of Treatment Date Type Action Status Goal Sigmoidoscopy. Due on due Goal Zoster vaccine. Due on due Goal Pap/HPV testing. Due on due Goal Depression screening. Due on due Goal Lipid panel. Due on due Goal FOBT. Due on due Goal Influenza vaccine. Due on due Goal Tdap. Due on due Goal Td vaccine. Due on due Goal Td vaccine. Due on due Goal Tdap. Due on due Goal Sigmoidoscopy. Due on due Goal Zoster vaccine. Due on due Goal Pap/HPV testing. Due on due Goal Depression screening. Due on due Goal Lipid panel. Due on due Goal FOBT. Due on due Goal Influenza vaccine. Due on due Goal Influenza vaccine. Due on due Goal FOBT. Due on due Goal Lipid panel. Due on due Goal Depression screening. Due on due Goal Td vaccine. Due on due Goal Tdap. Due on due Goal Sigmoidoscopy. Due on due Goal Zoster vaccine. Due on due Goal Pap/HPV testing. Due on due Goal Pap/HPV testing. Due on due Goal Zoster vaccine. Due on due Goal Sigmoidoscopy. Due on due Goal Tdap. Due on due Goal Influenza vaccine. Due on due Goal FOBT. Due on due Goal Lipid panel. Due on due Goal Depression screening. Due on due Goal Td vaccine. Due on due Goal Td vaccine. Due on due Goal Pap/HPV testing. Due on due Goal Zoster vaccine. Due on due Goal Sigmoidoscopy. Due on due Goal Tdap. Due on due Goal Influenza vaccine. Due on due Goal FOBT. Due on due Goal Lipid panel. Due on due Goal Depression screening. Due on due Goal Depression screening. Due on due Goal Lipid panel. Due on due Goal FOBT. Due on due Goal Influenza vaccine. Due on due Goal Tdap. Due on due Goal Td vaccine. Due on due Goal Pap/HPV testing. Due on due Goal Zoster vaccine. Due on due Goal Sigmoidoscopy. Due on due Goal Sigmoidoscopy. Due on due Goal Zoster vaccine. Due on due Goal Pap/HPV testing. Due on due Goal Depression screening. Due on due Goal Lipid panel. Due on due Goal FOBT. Due on due Goal Influenza vaccine. Due on due Goal Tdap. Due on due Goal Td vaccine. Due on due Goal Td vaccine. Due on due Goal Tdap. Due on due Goal Sigmoidoscopy. Due on due Goal Zoster vaccine. Due on due Goal Pap/HPV testing. Due on due Goal Depression screening. Due on due Goal Lipid panel. Due on due Goal FOBT. Due on due Goal Influenza vaccine. Due on due Goal Influenza vaccine. Due on due Goal FOBT. Due on due Goal Lipid panel. Due on 024 due Goal Depression screening. Due on due Goal Td vaccine. Due on 24 due Goal Tdap. Due on due Goal Sigmoidoscopy. Due on due Goal Zoster vaccine. Due on due Goal Pap/HPV testing. Due on due Goal Pap/HPV testing. Due on due Goal Zoster vaccine. Due on due Goal Sigmoidoscopy. Due on due Goal Tdap. Due on due Goal Influenza vaccine. Due on due Goal FOBT. Due on due Goal Lipid panel. Due on due Goal Depression screening. Due on due Goal Td vaccine. Due on due Goal Depression screening. Due on due Goal Lipid panel. Due on due Goal FOBT. Due on due Goal Influenza vaccine. Due on due Goal Tdap. Due on due Goal Sigmoidoscopy. Due on due Goal Zoster vaccine. Due on due Goal Pap/HPV testing. Due on due Goal Td vaccine. Due on due Goal Td vaccine. Due on due Goal Depression screening. Due on due Goal Lipid panel. Due on due Goal FOBT. Due on due Goal Influenza vaccine. Due on due Goal Tdap. Due on due Goal Sigmoidoscopy. Due on due Goal Zoster vaccine. Due on due Goal Pap/HPV testing. Due on due Goal Td vaccine. Due on due Goal Depression screening. Due on due Goal Lipid panel. Due on due Goal FOBT. Due on due Goal Influenza vaccine. Due on due Goal Tdap. Due on due Goal Sigmoidoscopy. Due on due Goal Zoster vaccine. Due on due Goal Pap/HPV testing. Due on due Goal Td vaccine. Due on due Goal Depression screening. Due on due Goal Lipid panel. Due on 024 due Goal FOBT. Due on due Goal Influenza vaccine. Due on due Goal Tdap. Due on due Goal Sigmoidoscopy. Due on due Goal Zoster vaccine. Due on due Goal Pap/HPV testing. Due on due Goal Pap/HPV testing. Due on due Goal Zoster vaccine. Due on due Goal Sigmoidoscopy. Due on due Goal Tdap. Due on due Goal Td vaccine. Due on due Goal Depression screening. Due on due Goal Lipid panel. Due on 024 due Goal FOBT. Due on due Goal Influenza vaccine. Due on due Goal Influenza vaccine. Due on due Goal FOBT. Due on due Goal Lipid panel. Due on due Goal Depression screening. Due on due Goal Pap/HPV testing. Due on due Goal Zoster vaccine. Due on due Goal Sigmoidoscopy. Due on due Goal Tdap. Due on due Goal Td vaccine. Due on due Goal Td vaccine. Due on due Goal Tdap. Due on due Goal Influenza vaccine. Due on due Goal FOBT. Due on due Goal Lipid panel. Due on due Goal Depression screening. Due on due Goal Pap/HPV testing. Due on due Goal Zoster vaccine. Due on due Goal Sigmoidoscopy. Due on due Goal Sigmoidoscopy. Due on due Goal Zoster vaccine. Due on due Goal Pap/HPV testing. Due on due Goal Td vaccine. Due on due Goal Tdap. Due on due Goal Influenza vaccine. Due on due Goal FOBT. Due on due Goal Lipid panel. Due on due Goal Depression screening. Due on due Goal Depression screening. Due on due Goal Lipid panel. Due on due Goal FOBT. Due on due Goal Influenza vaccine. Due on due Goal Tdap. Due on due Goal Sigmoidoscopy. Due on due Goal Zoster vaccine. Due on due Goal Pap/HPV testing. Due on due Goal Td vaccine. Due on due Goal Td vaccine. Due on due Goal Depression screening. Due on due Goal Lipid panel. Due on due Goal FOBT. Due on due Goal Influenza vaccine. Due on due Goal Tdap. Due on due Goal Sigmoidoscopy. Due on due Goal Zoster vaccine. Due on due Goal Pap/HPV testing. Due on due Goal Td vaccine. Due on due Goal Depression screening. Due on due Goal Lipid panel. Due on due Goal FOBT. Due on due Goal Influenza vaccine. Due on due Goal Tdap. Due on due Goal Sigmoidoscopy. Due on due Goal Zoster vaccine. Due on due Goal Pap/HPV testing. Due on due Goal Pap/HPV testing. Due on due Goal Zoster vaccine. Due on due Goal Sigmoidoscopy. Due on due Goal Tdap. Due on due Goal Td vaccine. Due on due Goal Depression screening. Due on due Goal Lipid panel. Due on due Goal FOBT. Due on due Goal Influenza vaccine. Due on due Goal Pap/HPV testing. Due on due Goal Zoster vaccine. Due on due Goal Sigmoidoscopy. Due on due Goal Tdap. Due on due Goal Td vaccine. Due on due Goal Depression screening. Due on due Goal Lipid panel. Due on 023 due Goal FOBT. Due on due Goal Influenza vaccine. Due on due Goal Td vaccine. Due on due Goal Tdap. Due on due Goal Sigmoidoscopy. Due on due Goal Zoster vaccine. Due on due Goal Pap/HPV testing. Due on due Goal Depression screening. Due on due Goal Lipid panel. Due on due Goal FOBT. Due on due Goal Influenza vaccine. Due on due Goal Lipid panel. Due on due Goal Depression screening. Due on due Goal Influenza vaccine. Due on Oc due Goal FOBT. Due on due Goal Td vaccine. Due on due Goal Tdap. Due on due Goal Sigmoidoscopy. Due on due Goal Zoster vaccine. Due on due Goal Pap/HPV testing. Due on due Goal Influenza vaccine. Due on due Goal FOBT. Due on due Goal Td vaccine. Due on due Goal Pap/HPV testing. Due on due Goal Zoster vaccine. Due on due Goal Sigmoidoscopy. Due on due Goal Tdap. Due on due Goal Lipid panel. Due on due Goal Depression screening. Due on due Goal Td vaccine. Due on due Goal FOBT. Due on due Goal Pap/HPV testing. Due on due Goal Zoster vaccine. Due on due Goal Sigmoidoscopy. Due on due Goal Tdap. Due on due Goal Lipid panel. Due on due Goal Depression screening. Due on due Goal Influenza vaccine. Due on due Goal Influenza vaccine. Due on due Goal Depression screening. Due on due Goal Lipid panel. Due on due Goal Tdap. Due on due Goal Sigmoidoscopy. Due on due Goal Zoster vaccine. Due on due Goal Pap/HPV testing. Due on due Goal FOBT. Due on due Goal Td vaccine. Due on due Goal Td vaccine. Due on due Goal FOBT. Due on due Goal Influenza vaccine. Due on due Goal Depression screening. Due on due Goal Lipid panel. Due on due Goal Tdap. Due on due Goal Sigmoidoscopy. Due on due Goal Zoster vaccine. Due on due Goal Pap/HPV testing. Due on due Goal Pap/HPV testing. Due on due Goal Zoster vaccine. Due on due Goal Sigmoidoscopy. Due on due Goal Tdap. Due on due Goal Td vaccine. Due on due Goal FOBT. Due on due Goal Influenza vaccine. Due on Ma due Goal Depression screening. Due on due Goal Lipid panel. Due on due Goal Lipid panel. Due on due Goal Depression screening. Due on due Goal Influenza vaccine. Due on due Goal FOBT. Due on due Goal Pap/HPV testing. Due on due Goal Zoster vaccine. Due on due Goal Sigmoidoscopy. Due on due Goal Tdap. Due on due Goal Td vaccine. Due on due Goal Td vaccine. Due on due Goal Tdap. Due on due Goal Lipid panel. Due on due Goal Depression screening. Due on due Goal Influenza vaccine. Due on due Goal FOBT. Due on due Goal Pap/HPV testing. Due on due Goal Zoster vaccine. Due on due Goal Sigmoidoscopy. Due on due Goal Sigmoidoscopy. Due on due Goal Influenza vaccine. Due on due Goal Depression screening. Due on due Goal Lipid panel. Due on due Goal Tdap. Due on due Goal Td vaccine. Due on due Goal FOBT. Due on due Goal Pap/HPV testing. Due on due Goal Zoster vaccine. Due on due Goal Tdap. Due on due Goal Lipid panel. Due on due Goal Depression screening. Due on due Goal Influenza vaccine. Due on due Goal Sigmoidoscopy. Due on due Goal Td vaccine. Due on due Goal FOBT. Due on due Goal Pap/HPV testing. Due on due Goal Zoster vaccine. Due on due Goal Zoster vaccine. Due on due Goal Pap/HPV testing. Due on due Goal FOBT. Due on due Goal Td vaccine. Due on due Goal Tdap. Due on due Goal Lipid panel. Due on due Goal Depression screening. Due on due Goal Influenza vaccine. Due on due Goal Sigmoidoscopy. Due on due Goal FOBT. Due on due Goal Pap/HPV testing. Due on due Goal Zoster vaccine. Due on due Goal Lipid panel. Due on due Goal Depression screening. Due on due Goal Influenza vaccine. Due on due Goal Sigmoidoscopy. Due on due Goal Td vaccine. Due on due Goal Tdap. Due on due Goal Tdap. Due on due Goal Td vaccine. Due on due Goal FOBT. Due on due Goal Pap/HPV testing. Due on due Goal Zoster vaccine. Due on due Goal Lipid panel. Due on due Goal Depression screening. Due on due Goal Influenza vaccine. Due on due Goal Sigmoidoscopy. Due on due Goal Zoster vaccine. Due on due Goal Pap/HPV testing. Due on due Goal FOBT. Due on due Goal Td vaccine. Due on due Goal Tdap. Due on due Goal Lipid panel. Due on due Goal Depression screening. Due on due Goal Influenza vaccine. Due on due Goal Sigmoidoscopy. Due on due Goal Sigmoidoscopy. Due on due Goal Influenza vaccine. Due on Se due Goal Depression screening. Due on due Goal Lipid panel. Due on due Goal Zoster vaccine. Due on due Goal Pap/HPV testing. Due on due Goal FOBT. Due on due Goal Td vaccine. Due on due Goal Tdap. Due on due Goal Influenza vaccine. Due on due Goal Sigmoidoscopy. Due on due Goal Td vaccine. Due on due Goal Tdap. Due on due Goal Depression screening. Due on due Goal Lipid panel. Due on due Goal Zoster vaccine. Due on due Goal Pap/HPV testing. Due on due Goal FOBT. Due on due Goal Tdap. Due on due Goal Td vaccine. Due on due Goal Sigmoidoscopy. Due on due Goal Influenza vaccine. Due on due Goal Depression screening. Due on due Goal Lipid panel. Due on due Goal Zoster vaccine. Due on due Goal Pap/HPV testing. Due on due Goal FOBT. Due on due Goal Pap/HPV testing. Due on due Goal Zoster vaccine. Due on due Goal Lipid panel. Due on due Goal Depression screening. Due on due Goal Influenza vaccine. Due on due Goal Tdap. Due on due Goal Td vaccine. Due on due Goal Sigmoidoscopy. Due on due Goal FOBT. Due on due Goal FOBT. Due on due Goal Sigmoidoscopy. Due on due Goal Td vaccine. Due on due Goal Pap/HPV testing. Due on due Goal Zoster vaccine. Due on due Goal Lipid panel. Due on due Goal Depression screening. Due on due Goal Influenza vaccine. Due on due Goal Tdap. Due on due Goal Tdap. Due on due Goal Influenza vaccine. Due on due Goal FOBT. Due on due Goal Sigmoidoscopy. Due on due Goal Td vaccine. Due on due Goal Pap/HPV testing. Due on due Goal Zoster vaccine. Due on due Goal Lipid panel. Due on due Goal Depression screening. Due on due Goal Tdap. Due on due Goal Influenza vaccine. Due on due Goal FOBT. Due on due Goal Sigmoidoscopy. Due on due Goal Td vaccine. Due on due Goal Pap/HPV testing. Due on due Goal Zoster vaccine. Due on due Goal Lipid panel. Due on due Goal Depression screening. Due on due Goal Depression screening. Due on due Goal Lipid panel. Due on due Goal Zoster vaccine. Due on due Goal Pap/HPV testing. Due on due Goal Td vaccine. Due on due Goal Tdap. Due on due Goal Influenza vaccine. Due on due Goal FOBT. Due on due Goal Sigmoidoscopy. Due on due Goal Sigmoidoscopy. Due on due Goal FOBT. Due on due Goal Influenza vaccine. Due on due Goal Depression screening. Due on due Goal Lipid panel. Due on due Goal Zoster vaccine. Due on due Goal Pap/HPV testing. Due on due Goal Td vaccine. Due on due Goal Tdap. Due on due Goal Tdap. Due on due Goal Td vaccine. Due on due Goal Sigmoidoscopy. Due on due Goal FOBT. Due on due Goal Influenza vaccine. Due on due Goal Depression screening. Due on due Goal Lipid panel. Due on due Goal Zoster vaccine. Due on due Goal Pap/HPV testing. Due on due Goal Pap/HPV testing. Due on due Goal Zoster vaccine. Due on due Goal Lipid panel. Due on due Goal Depression screening. Due on due Goal Influenza vaccine. Due on due Goal Tdap. Due on due Goal Td vaccine. Due on due Goal Sigmoidoscopy. Due on due Goal FOBT. Due on due Goal FOBT. Due on due Goal Sigmoidoscopy. Due on due Goal Td vaccine. Due on due Goal Pap/HPV testing. Due on due Goal Zoster vaccine. Due on due Goal Lipid panel. Due on due Goal Depression screening. Due on due Goal Influenza vaccine. Due on due Goal Tdap. Due on due Goal Tdap. Due on due Goal Influenza vaccine. Due on due Goal FOBT. Due on due Goal Sigmoidoscopy. Due on due Goal Td vaccine. Due on due Goal Pap/HPV testing. Due on due Goal Zoster vaccine. Due on due Goal Lipid panel. Due on due Goal Depression screening. Due on due Goal Tdap. Due on due Goal Td vaccine. Due on due Goal Influenza vaccine. Due on due Goal FOBT. Due on due Goal Sigmoidoscopy. Due on due Goal Depression screening. Due on due Goal Lipid panel. Due on due Goal Zoster vaccine. Due on due Goal Pap/HPV testing. Due on due Goal Pap/HPV testing. Due on due Goal Zoster vaccine. Due on due Goal Lipid panel. Due on due Goal Depression screening. Due on due Goal Tdap. Due on due Goal Td vaccine. Due on due Goal Influenza vaccine. Due on due Goal FOBT. Due on due Goal Sigmoidoscopy. Due on due Goal Sigmoidoscopy. Due on due Goal FOBT. Due on due Goal Influenza vaccine. Due on due Goal Td vaccine. Due on due Goal Tdap. Due on due Goal Depression screening. Due on due Goal Lipid panel. Due on due Goal Zoster vaccine. Due on due Goal Pap/HPV testing. Due on due Goal Sigmoidoscopy. Due on due Goal FOBT. Due on due Goal Influenza vaccine. Due on due Goal Td vaccine. Due on due Goal Tdap. Due on due Goal Depression screening. Due on due Goal Lipid panel. Due on due Goal Zoster vaccine. Due on due Goal Pap/HPV testing. Due on due Goal Pap/HPV testing. Due on due Goal Zoster vaccine. Due on due Goal Lipid panel. Due on due Goal Depression screening. Due on due Goal Tdap. Due on due Goal Td vaccine. Due on due Goal Influenza vaccine. Due on due Goal FOBT. Due on due Goal Sigmoidoscopy. Due on due Goal Pap/HPV testing. Due on due Goal Zoster vaccine. Due on due Goal Lipid panel. Due on due Goal Depression screening. Due on due Goal Tdap. Due on due Goal Td vaccine. Due on due Goal Influenza vaccine. Due on due Goal FOBT. Due on due Goal Sigmoidoscopy. Due on due Goal Sigmoidoscopy. Due on due Goal FOBT. Due on due Goal Influenza vaccine. Due on due Goal Td vaccine. Due on due Goal Tdap. Due on due Goal Depression screening. Due on due Goal Lipid panel. Due on due Goal Zoster vaccine. Due on due Goal Pap/HPV testing. Due on due Goal Pap/HPV testing. Due on due Goal Zoster vaccine. Due on due Goal Lipid panel. Due on due Goal Depression screening. Due on due Goal Tdap. Due on due Goal Td vaccine. Due on due Goal Influenza vaccine. Due on due Goal FOBT. Due on due Goal Sigmoidoscopy. Due on due Goal Sigmoidoscopy. Due on due Goal FOBT. Due on due Goal Influenza vaccine. Due on due Goal Td vaccine. Due on due Goal Tdap. Due on due Goal Depression screening. Due on due Goal Pap/HPV testing. Due on due Goal Zoster vaccine. Due on due Goal Lipid panel. Due on due Goal Lipid panel. Due on due Goal Zoster vaccine. Due on due Goal Pap/HPV testing. Due on due Goal Depression screening. Due on due Goal Tdap. Due on due Goal Td vaccine. Due on due Goal Influenza vaccine. Due on due Goal FOBT. Due on due Goal Sigmoidoscopy. Due on due Goal Td vaccine. Due on due Goal Influenza vaccine. Due on due Goal FOBT. Due on due Goal Sigmoidoscopy. Due on due Goal Lipid panel. Due on due Goal Zoster vaccine. Due on due Goal Pap/HPV testing. Due on due Goal Depression screening. Due on due Goal Tdap. Due on due Goal Tdap. Due on due Goal Depression screening. Due on due Goal Pap/HPV testing. Due on due Goal Zoster vaccine. Due on due Goal Lipid panel. Due on due Goal Sigmoidoscopy. Due on due Goal FOBT. Due on due Goal Influenza vaccine. Due on due Goal Td vaccine. Due on due Goal Tdap. Due on due Goal Depression screening. Due on due Goal Pap/HPV testing. Due on due Goal Lipid panel. Due on due Goal Sigmoidoscopy. Due on due Goal FOBT. Due on due Goal Influenza vaccine. Due on due Goal Td vaccine. Due on due Goal Td vaccine. Due on due Goal Influenza vaccine. Due on due Goal FOBT. Due on due Goal Sigmoidoscopy. Due on due Goal Lipid panel. Due on due Goal Pap/HPV testing. Due on due Goal Depression screening. Due on due Goal Tdap. Due on due Goal Td vaccine. Due on due Goal Influenza vaccine. Due on due Goal FOBT. Due on due Goal Sigmoidoscopy. Due on due Goal Lipid panel. Due on due Goal Pap/HPV testing. Due on due Goal Depression screening. Due on due Goal Tdap. Due on due Goal Td vaccine. Due on due Goal Influenza vaccine. Due on due Goal FOBT. Due on due Goal Sigmoidoscopy. Due on due Goal Lipid panel. Due on due Goal Pap/HPV testing. Due on due Goal Depression screening. Due on due Goal Tdap. Due on due Goal Td vaccine. Due on due Goal Influenza vaccine. Due on due Goal FOBT. Due on due Goal Sigmoidoscopy. Due on due Goal Lipid panel. Due on due Goal Pap/HPV testing. Due on due Goal Depression screening. Due on due Goal Tdap. Due on due Goal Td vaccine. Due on due Goal Influenza vaccine. Due on due Goal FOBT. Due on due Goal Sigmoidoscopy. Due on due Goal Lipid panel. Due on due Goal Pap/HPV testing. Due on due Goal Depression screening. Due on due Goal Tdap. Due on due Goal Tobacco cessation counseling completed Goal Td vaccine. Due on due Goal Influenza vaccine. Due on due Goal FOBT. Due on due Goal Sigmoidoscopy. Due on due Goal Lipid panel. Due on due Goal Pap/HPV testing. Due on due Goal Depression screening. Due on due Goal Tdap. Due on due Goal Tobacco cessation counseling completed Goal Lipid panel. Due on due Goal Pap/HPV testing. Due on due Goal Depression screening. Due on due Goal Tdap. Due on due Goal Td vaccine. Due on due Goal Influenza vaccine. Due on due Goal FOBT. Due on due Goal Sigmoidoscopy. Due on due Goal Tobacco cessation counseling completed Goal Lipid panel. Due on due Goal Pap/HPV testing. Due on due Goal Depression screening. Due on due Goal Tdap. Due on due Goal Td vaccine. Due on due Goal Influenza vaccine. Due on due Goal FOBT. Due on due Goal Sigmoidoscopy. Due on due Goal Tobacco cessation counseling completed Goal Special diet education compl eted Goal Lipid panel. Due on due Goal Pap/HPV testing. Due on due Goal Depression screening. Due on due Goal Tdap. Due on due Goal Td vaccine. Due on due Goal Influenza vaccine. Due on due Goal FOBT. Due on due Goal Sigmoidoscopy. Due on due Goal Tobacco cessation counseling completed Goal Special diet education compl eted Goal Lipid panel. Due on due Goal Pap/HPV testing. Due on due Goal Depression screening. Due on due Goal Tdap. Due on due Goal Td vaccine. Due on due Goal Influenza vaccine. Due on due Goal FOBT. Due on due Goal Sigmoidoscopy. Due on due Goal Tobacco cessation counseling completed Goal Special diet education compl eted Goal Lipid panel. Due on due Goal Pap/HPV testing. Due on due Goal Depression screening. Due on due Goal Tdap. Due on due Goal Td vaccine. Due on due Goal Influenza vaccine. Due on due Goal FOBT. Due on due Goal Sigmoidoscopy. Due on due Goal Tobacco cessation counseling completed Goal Special diet education compl eted Goal Lipid panel. Due on due Goal Pap/HPV testing. Due on due Goal Depression screening. Due on due Goal Tdap. Due on due Goal Td vaccine. Due on due Goal Influenza vaccine. Due on due Goal FOBT. Due on due Goal Sigmoidoscopy. Due on due Goal Tobacco cessation counseling completed Goal Special diet education compl eted Goal Pap/HPV testing. Due on due Goal Depression screening. Due on due Goal Tdap. Due on due Goal Td vaccine. Due on due Goal Influenza vaccine. Due on due Goal FOBT. Due on due Goal Sigmoidoscopy. Due on due Goal Lipid panel. Due on due Goal Special diet education compl eted Goal Pap/HPV testing. Due on due Goal Depression screening. Due on due Goal Tdap. Due on due Goal Td vaccine. Due on due Goal Influenza vaccine. Due on due Goal FOBT. Due on due Goal Sigmoidoscopy. Due on due Goal Lipid panel. Due on due Goal Special diet education compl eted Goal Tobacco cessation counseling completed Goal Pap/HPV testing. Due on due Goal Depression screening. Due on due Goal Tdap. Due on due Goal Td vaccine. Due on due Goal Influenza vaccine. Due on due Goal FOBT. Due on due Goal Sigmoidoscopy. Due on due Goal Lipid panel. Due on due Goal Tobacco cessation counseling completed Goal Special diet education compl eted Goal Pap/HPV testing. Due on due Goal Depression screening. Due on due Goal Tdap. Due on due Goal Td vaccine. Due on due Goal Influenza vaccine. Due on due Goal FOBT. Due on due Goal Sigmoidoscopy. Due on due Goal Lipid panel. Due on due Goal Tobacco cessation counseling completed Goal Special diet education compl eted Goal Depression screening. Due on due Goal Pap/HPV testing. Due on due Goal Lipid panel. Due on due Goal Sigmoidoscopy. Due on due Goal FOBT. Due on due Goal Influenza vaccine. Due on Ap due Goal Td vaccine. Due on due Goal Tdap. Due on due Goal Tobacco cessation counseling completed Goal Special diet education compl eted Goal Depression screening. Due on due Goal Pap/HPV testing. Due on due Goal Lipid panel. Due on due Goal Sigmoidoscopy. Due on due Goal FOBT. Due on due Goal Influenza vaccine. Due on due Goal Td vaccine. Due on due Goal Tdap. Due on due Goal Tobacco cessation counseling completed Goal Special diet education compl eted Goal Depression screening. Due on due Goal Pap/HPV testing. Due on due Goal Lipid panel. Due on due Goal Sigmoidoscopy. Due on due Goal FOBT. Due on due Goal Influenza vaccine. Due on Ma due Goal Td vaccine. Due on due Goal Tdap. Due on due Goal Special diet education compl eted Goal Tobacco cessation counseling completed Goal Depression screening. Due on due Goal Pap/HPV testing. Due on due Goal Lipid panel. Due on 019 due Goal Sigmoidoscopy. Due on due Goal FOBT. Due on due Goal Influenza vaccine. Due on due Goal Td vaccine. Due on 19 due Goal Tdap. Due on due Goal Tobacco cessation counseling completed Goal Special diet education compl eted Goal Tdap. Due on due Goal Td vaccine. Due on 18 due Goal Depression screening. Due on due Goal Pap/HPV testing. Due on due Goal Lipid panel. Due on 018 due Goal Sigmoidoscopy. Due on due Goal FOBT. Due on due Goal Influenza vaccine. Due on due Goal Special diet education compl eted Goal Tdap. Due on due Goal Td vaccine. Due on 18 due Goal Depression screening. Due on due Goal Pap/HPV testing. Due on due Goal Lipid panel. Due on 018 due Goal Sigmoidoscopy. Due on due Goal FOBT. Due on due Goal Influenza vaccine. Due on due Goal Special diet education compl eted Goal Tobacco cessation counseling completed Goal Tdap. Due on due Goal Td vaccine. Due on 18 due Goal Depression screening. Due on due Goal Pap/HPV testing. Due on due Goal Lipid panel. Due on due Goal Sigmoidoscopy. Due on due Goal FOBT. Due on due Goal Influenza vaccine. Due on due Goal Tobacco cessation counseling completed Goal Special diet education compl eted Goal Influenza vaccine. Due on Oc due Goal FOBT. Due on due Goal Sigmoidoscopy. Due on due Goal Lipid panel. Due on due Goal Pap/HPV testing. Due on due Goal Depression screening. Due on due Goal Td vaccine. Due on 18 due Goal Tdap. Due on due Goal Special diet education compl eted Goal Tdap. Due on due Goal Td vaccine. Due on due Goal Depression screening. Due on due Goal Pap/HPV testing. Due on due Goal Lipid panel. Due on due Goal Sigmoidoscopy. Due on due Goal FOBT. Due on due Goal Influenza vaccine. Due on due Goal Special diet education compl eted Goal Influenza vaccine. Due on due Goal FOBT. Due on due Goal Sigmoidoscopy. Due on due Goal Lipid panel. Due on due Goal Pap/HPV testing. Due on due Goal Depression screening. Due on due Goal Td vaccine. Due on 18 due Goal Tdap. Due on due Goal Prescribed dietary intake co mpleted Goal Influenza vaccine. Due on due Goal FOBT. Due on due Goal Sigmoidoscopy. Due on due Goal Lipid panel. Due on due Goal Pap/HPV testing. Due on due Goal Depression screening. Due on due Goal Td vaccine. Due on 18 due Goal Tdap. Due on due Goal Special diet education compl eted Goal Sigmoidoscopy. Due on due Goal FOBT. Due on due Goal Influenza vaccine. Due on due Goal Tdap. Due on due Goal Td vaccine. Due on 18 due Goal Depression screening. Due on due Goal Pap/HPV testing. Due on due Goal Lipid panel. Due on due Goal Special diet education compl eted Goal Lipid panel. Due on due Goal Pap/HPV testing. Due on due Goal Depression screening. Due on due Goal Td vaccine. Due on 18 due Goal Tdap. Due on due Goal Influenza vaccine. Due on Ap due Goal FOBT. Due on due Goal Sigmoidoscopy. Due on due Goal Special diet education compl eted Goal Sigmoidoscopy. Due on due Goal FOBT. Due on due Goal Influenza vaccine. Due on Ap due Goal Tdap. Due on due Goal Td vaccine. Due on 18 due Goal Depression screening. Due on due Goal Pap/HPV testing. Due on due Goal Lipid panel. Due on 018 due Goal Special diet education compl eted Goal Sigmoidoscopy. Due on due Goal FOBT. Due on due Goal Influenza vaccine. Due on Ma due Goal Tdap. Due on due Goal Td vaccine. Due on 18 due Goal Depression screening. Due on due Goal Pap/HPV testing. Due on due Goal Sigmoidoscopy. Due on due Goal Tdap. Due on due Goal Influenza vaccine. Due on due Goal Depression screening. Due on due Goal FOBT. Due on due Goal Td vaccine. Due on 18 due Goal Pap/HPV testing. Due on due Goal Td vaccine. Due on 18 due Goal Tdap. Due on due Goal Pap/HPV testing. Due on due Goal Depression screening. Due on due Goal Influenza vaccine. Due on due Goal FOBT. Due on due Goal Sigmoidoscopy. Due on due Goal Pap/HPV testing. Due on due Goal Influenza vaccine. Due on due Goal Td vaccine. Due on due Goal Tdap. Due on due Goal FOBT. Due on due Goal Depression screening. Due on due Goal Sigmoidoscopy. Due on due Goal Pap/HPV testing. Due on due Goal FOBT. Due on due Goal Influenza vaccine. Due on due Goal Tdap. Due on due Goal Sigmoidoscopy. Due on due Goal Depression screening. Due on due Goal Td vaccine. Due on due Goal Sigmoidoscopy. Due on due Goal Influenza vaccine. Due on due Goal Td vaccine. Due on 17 due Goal Pap/HPV testing. Due on due Goal Depression screening. Due on due Goal Tdap. Due on due Goal FOBT. Due on due Goal Td vaccine. Due on due Goal Tdap. Due on due Goal Depression screening. Due on due Goal Influenza vaccine. Due on due Goal Sigmoidoscopy. Due on due Goal Pap/HPV testing. Due on due Goal FOBT. Due on due Goal FOBT. Due on due Goal Depression screening. Due on due Goal Sigmoidoscopy. Due on due Goal Influenza vaccine. Due on due Goal Tdap. Due on due Goal Pap/HPV testing. Due on due Goal Td vaccine. Due on due Goal Sigmoidoscopy. Due on due Goal Td vaccine. Due on due Goal FOBT. Due on due Goal Depression screening. Due on due Goal Influenza vaccine. Due on due Goal Tdap. Due on due Goal Pap/HPV testing. Due on due Goal Pap/HPV testing. Due on due Goal Influenza vaccine. Due on due Goal FOBT. Due on due Goal Td vaccine. Due on due Goal Depression screening. Due on due Goal Tdap. Due on due Goal Sigmoidoscopy. Due on due Goal Tdap. Due on due Goal Pap/HPV testing. Due on due Goal Sigmoidoscopy. Due on due Goal Depression screening. Due on due Goal Influenza vaccine. Due on due Goal FOBT. Due on due Goal Td vaccine. Due on due Goal Td vaccine. Due on due Goal Tdap. Due on due Goal Influenza vaccine. Due on due Goal FOBT. Due on due Goal Depression screening. Due on due Goal Pap/HPV testing. Due on due Goal Sigmoidoscopy. Due on due Goal Sigmoidoscopy. Due on due Goal Depression screening. Due on due Goal Tdap. Due on due Goal Pap/HPV testing. Due on due Goal Td vaccine. Due on due Goal FOBT. Due on due Goal Influenza vaccine. Due on due Goal Depression screening. Due on due Goal Sigmoidoscopy. Due on due Goal FOBT. Due on due Goal Pap/HPV testing. Due on due Goal Tdap. Due on due Goal Influenza vaccine. Due on due Goal Td vaccine. Due on due Goal FOBT. Due on due Goal Influenza vaccine. Due on due Goal Sigmoidoscopy. Due on due Goal Td vaccine. Due on 17 due Goal Pap/HPV testing. Due on due Goal Depression screening. Due on due Goal Tdap. Due on due Goal Tdap. Due on due Goal Td vaccine. Due on 17 due Goal Sigmoidoscopy. Due on due Goal Influenza vaccine. Due on due Goal FOBT. Due on due Goal Depression screening. Due on due Goal Pap/HPV testing. Due on due Goal Depression screening. Due on due Goal FOBT. Due on due Goal Td vaccine. Due on 16 due Goal Sigmoidoscopy. Due on due Goal Tdap. Due on due Goal Pap/HPV testing. Due on due Goal Influenza vaccine. Due on due Goal Tdap. Due on due Goal Td vaccine. Due on 16 due Goal Influenza vaccine. Due on due Goal Depression screening. Due on due Goal FOBT. Due on due Goal Pap/HPV testing. Due on due Goal Sigmoidoscopy. Due on due Goal Influenza vaccine. Due on due Goal Td vaccine. Due on 16 due Goal Pap/HPV testing. Due on due Goal Tdap. Due on due Goal Depression screening. Due on due Goal Sigmoidoscopy. Due on due Goal FOBT. Due on due Goal Tdap. Due on due Goal FOBT. Due on due Goal Td vaccine. Due on 16 due Goal Influenza vaccine. Due on due Goal Pap/HPV testing. Due on due Goal Sigmoidoscopy. Due on due Goal Depression screening. Due on due Goal Td vaccine. Due on 16 due Goal Sigmoidoscopy. Due on due Goal Tdap. Due on due Goal FOBT. Due on due Goal Depression screening. Due on due Goal Pap/HPV testing. Due on due Goal Influenza vaccine. Due on due Goal Pap/HPV testing. Due on due Goal Tdap. Due on due Goal Influenza vaccine. Due on due Goal FOBT. Due on due Goal Sigmoidoscopy. Due on due Goal Depression screening. Due on due Goal Td vaccine. Due on 16 due Goal Td vaccine. Due on 16 due Goal Pap/HPV testing. Due on due Goal Sigmoidoscopy. Due on due Goal Tdap. Due on due Goal Influenza vaccine. Due on due Goal Depression screening. Due on due Goal FOBT. Due on due Goal Influenza vaccine. Due on due Goal Tdap. Due on due Goal Sigmoidoscopy. Due on due Goal FOBT. Due on due Goal Pap/HPV testing. Due on due Goal Td vaccine. Due on due Goal Depression screening. Due on due Goal FOBT. Due on due Goal Depression screening. Due on due Goal Pap/HPV testing. Due on due Goal Tdap. Due on due Goal Influenza vaccine. Due on due Goal Sigmoidoscopy. Due on due Goal Td vaccine. Due on 16 due Goal FOBT. Due on due Goal Td vaccine. Due on 16 due Goal Tdap. Due on due Goal Depression screening. Due on due Goal Influenza vaccine. Due on due Goal Pap/HPV testing. Due on due Goal Sigmoidoscopy. Due on due Goal Tdap. Due on due Goal Influenza vaccine. Due on due Goal Td vaccine. Due on 16 due Goal FOBT. Due on due Goal Pap/HPV testing. Due on due Goal Depression screening. Due on due Goal Sigmoidoscopy. Due on due Goal FOBT. Due on due Goal Tdap. Due on due Goal Pap/HPV testing. Due on due Goal Influenza vaccine. Due on due Goal Td vaccine. Due on 16 due Goal Sigmoidoscopy. Due on due Goal Depression screening. Due on due Goal Influenza vaccine. Due on due Goal Sigmoidoscopy. Due on due Goal FOBT. Due on due Goal Td vaccine. Due on 16 due Goal Depression screening. Due on due Goal Pap/HPV testing. Due on due Goal Tdap. Due on due Goal Pap/HPV testing. Due on due Goal Td vaccine. Due on 15 due Goal Influenza vaccine. Due on due Goal Depression screening. Due on due Goal Sigmoidoscopy. Due on due Goal FOBT. Due on due Goal Tdap. Due on due Goal FOBT. Due on due Goal Depression screening. Due on due Goal Influenza vaccine. Due on due Goal Td vaccine. Due on due Goal Tdap. Due on due Goal Sigmoidoscopy. Due on due Goal Pap/HPV testing. Due on due Goal Td vaccine. Due on due Goal Tdap. Due on due Goal FOBT. Due on due Goal Pap/HPV testing. Due on due Goal Influenza vaccine. Due on due Goal Sigmoidoscopy. Due on due Goal Depression screening. Due on due Goal Depression screening. Due on due Goal Td vaccine. Due on due Goal Pap/HPV testing. Due on due Goal FOBT. Due on due Goal Influenza vaccine. Due on due Goal Sigmoidoscopy. Due on due Goal Tdap. Due on due Goal Sigmoidoscopy. Due on due Goal FOBT. Due on due Goal Depression screening. Due on due Goal Pap/HPV testing. Due on due Goal Influenza vaccine. Due on due Goal Td vaccine. Due on due Goal Tdap. Due on due Goal FOBT. Due on due Goal Pap/HPV testing. Due on due Goal Td vaccine. Due on due Goal Tdap. Due on due Goal Depression screening. Due on due Goal Influenza vaccine. Due on due Goal Sigmoidoscopy. Due on due Goal Sigmoidoscopy. Due on due Goal Td vaccine. Due on 15 due Goal Depression screening. Due on due Goal Pap/HPV testing. Due on due Goal Influenza vaccine. Due on due Goal FOBT. Due on due Goal Tdap. Due on due Goal Depression screening. Due on due Goal FOBT. Due on due Goal Influenza vaccine. Due on due Goal Pap/HPV testing. Due on due Goal Sigmoidoscopy. Due on due Goal Td vaccine. Due on 15 due Goal Tdap. Due on due Goal Special diet education compl eted Goal Colonoscopy. Due on 013 due Goal Mammogram. Due on 3 due Goal Tobacco cessation counseling completed Goal Tobacco cessation counseling completed Goal Tobacco cessation counseling completed Goal Tobacco cessation counseling completed Goal Tobacco cessation counseling completed Goal Tobacco cessation counseling completed Goal Tobacco cessation counseling completed Goal Tobacco cessation counseling completed Goal Tobacco cessation counseling completed Goal Tobacco cessation counseling completed Goal Tobacco cessation counseling completed Goal Tobacco cessation counseling completed Goal Tobacco cessation counseling completed Goal Tobacco cessation counseling completed Goal Tobacco cessation counseling completed Goal Tobacco cessation counseling completed Goal Tobacco cessation counseling completed Goal Tobacco cessation counseling completed Goal Tobacco cessation counseling completed Goal Tobacco cessation counseling completed Goal Tobacco cessation counseling completed Goal Tobacco cessation counseling completed Goal Tobacco cessation counseling completed Goal Tobacco cessation counseling completed Goal Tobacco cessation counseling completed Goal Tobacco cessation counseling completed Goal Tobacco cessation counseling completed Goal Tobacco cessation counseling completed Goal Tobacco cessation counseling completed Goal Tobacco cessation counseling completed Goal Tobacco cessation counseling completed Goal Tobacco cessation counseling completed Goal Tobacco cessation counseling completed Goal Tobacco cessation counseling completed Referral Ordered: THYROID MET UPTAKE ordered Referral Ordered: Urology (related to Mixed incontinence) ordered Referral Ordered: Referrals: Urology. Evaluate and treat ordered Referral Ordered: SHAWN LO -Allopathic & Osteopathic Physicians : Orthopaedic Surgery (related to Pain in left knee) ordered Referral Referred To: SHAWN LO [address] [place], [place], [phone] Ordered: Referrals: Allopathic & Osteopathic Physicians : Orthopaedic Surgery. SHAWN LO. Evaluate and treat ordered Referral Referred To: Mark Carolina [address] [facility] [address] [place] [address], [address] [phone] Ordered: Referrals: Mark Carolina. Evaluate and treat ordered Referral Ordered: US THYROID ordered Referral Ordered: Gastroenterology (related to Polyp of colon) ordered Referral Ordered: Referrals: Gastroenterology. Evaluate and treat ordered Referral Ordered: Veronica Minaya -Allopathic & Osteopathic Physicians : Internal Medicine : Endocrinology, Diabetes & Metabolism (related to Type 2 diabetes mellitus with diabetic neuropathy) ordered Referral Referred To: Veronica Minaya [address] [facility]
[address], [place] [id number] Ordered: Referrals: Allopathic & Osteopathic Physicians : Internal Medicine : Endocrinology, Diabetes & Metabolism. Veronica Minaya. Evaluate and treat ordered Referral Ordered: BERNARDO BRUNO -Podiatric Medicine & Surgery Service Providers : [employer] (related to Pain in right foot) ordered Referral Ordered: Rosette Farmer -Allopathic & Osteopathic Physicians : Internal Medicine : Endocrinology, Diabetes & Metabolism (related to Type 2 diabetes mellitus with diabetic nephropathy) ordered Referral Ordered: GABRIELA DOMINGUEZ -Allopathic & Osteopathic Physicians : Surgery (related to Hematuria) ordered Referral Referred To: Rosette Farmer Ordered: Referrals: Allopathic & Osteopathic Physicians : Internal Medicine : Endocrinology, Diabetes & Metabolism. Rosette Farmer. Evaluate and treat ordered Referral Referred To: GABRIELA DOMINGUEZ [address] [facility] [address] [place], [place], [phone] Ordered: Referrals: Allopathic & Osteopathic Physicians : Surgery. GABRIELA DOMINGUEZ. Evaluate and treat ordered Referral Ordered: BERNARDO BRUNO -Podiatric Medicine & Surgery Service Providers : [employer]vester (related to Follicular cyst of subcutaneous tissue) ordered Referral Referred To: BERNARDO BRUNO [address] [facility],[address] [place], [place], [phone] Ordered: Referrals: Podiatric Medicine & Surgery Service Providers : Seaweed [employer]vester. BERNARDO BRUNO. Evaluate and treat ordered Referral Ordered: MAMMOGRAM, ONE BREAST R ordered Referral Ordered: Surgery (related to Body mass index (BMI) 40.0-44.9, adult) ordered Referral Ordered: Referrals: Surgery. Evaluate and treat ordered Referral Ordered: CT THORAX W/O DYE ordered Referral Ordered: Huy Vieira (related to Renal disease) ordered Referral Referred To: Huy Vieira [address] [facility] [place], [address] [phone] Ordered: Referrals: Huy Vieira. Evaluate and treat ordered Referral Ordered: Pulmonology (related to Other sleep apnea) ordered Referral Ordered: MRI NECK SPINE W/O DYE ordered Referral Ordered: Referrals: Pulmonology. Evaluate and treat ordered Referral Ordered: MRI LUMBAR SPINE W/O DYE ordered Referral Ordered: DXA BONE DENSITY, AXIAL ordered Referral Ordered: MAMMOGRAM, SCREENING ordered Referral Ordered: CHEST X-RAY PA/LAT TWO-VIEWS ordered Referral Ordered: COLONOSCOPY AND BIOPSY ordered Referral Ordered: Referral: Urology. ordered Referral Ordered: CARDIOVASCULAR STRESS TEST ordered Referral Ordered: CT ABD & PELVIS W/O CONTRAST ordered Referral Ordered: Referral: Dermatology. ordered Referral Ordered: UPPER GI W/ KUB ordered Referral Ordered: LUMBAR XRAY AP AND LAT ONLY ordered Referral Ordered: US EXAM, ABDOM, COMPLETE ordered Referral Ordered: KNEE XRAY TWO-VIEW Right ordered Appointment Jade Hunter BOOKED History Of Present Illness Encounter Date Complaint History Of Prese nt Illness anxiety1 Pt has chronic a nxiety and depression Pt takes zoloft and xanax PRn and doing ok Pt denies any suicidal or homicidal thought Pt denies any crying spells pain Pt has chronic l ow back pain Pt denies any worsening pain. Pt denies any loss of bladder control pt failed NSAID and ultram. Pt takes norco PRN for pain. Pt has mild sciatica with leg neuropathy. Pt denies any saddle area paresthesia. Pt also takes neurontin and doing ok.. thyroid nodule1 pt has thyroid n odule .Pt denies any dysphagia or neck pain Pt has high thyroid pt just had more lab done by endo and she is waiting for endo for review and potentially starting methimazole. Pt does not want to do thyroid uptake scan due to radiation anxiety1 Pt has chronic a nxiety and depression Pt takes zoloft and xanax PRn and doing ok Pt denies any suicidal or homicidal thought Pt denies any crying spells DM Pt has DM. pt ta kes jardiance and lantus and she saw endo yesterday and she is off amaryl and she was started on another med but she does not know the name and has not picked up yet. her A1c is over 10 thyroid1 Pt has hyperthyr oid with elevated thyroglobulin and T4 with TSI. Pt denies any dysphagia or neck pain Pt denies any chest pain or palpitation. Pt saw endo yesterday but nothing was done for above. Pt has been losing weight pain Pt has chronic l ow back pain Pt denies any worsening pain. Pt denies any loss of bladder control pt failed NSAID and ultram. Pt takes norco PRN for pain. Pt has mild sciatica with leg neuropathy. Pt denies any saddle area paresthesia. Pt also takes neurontin and doing ok.. DM Pt has DM. pt ta kes jardiance and lantus and she saw endo yesterday and she is off amaryl and she was started on another med but she does not know the name and has not picked up yet. her A1c is over 10 thyroid1 Pt has hyperthyr oid with elevated thyroglobulin and T4 with TSI UTI1 Pt c/o persisten t urinary frequency, urgency with some dysuria for several weeks UA showed hematuria and UTI. Pt denies any fever, chill, flank pain thyroid1 Pt has elevated thyroid with elevation of TSI and thyroglobulin. Pt denies any dysphagia or neck pain. Pt denies any chest pain or headache or palpitation thyroid1 Pt has elevated thyroid Pt denies any dysphagia or neck pain Pt denies any chest pain, palpitation DM Pt has DM Pt is on lantus, Mounjaro, amaryl and jardiance and her glucose and A1c are very high. Pt is noncompliant with above meds Pt has not seen endo for a while. Pt also notices frequent urination LFT Pt has mildly hi gh LFT Pt does have fatty liver Pt denies any abd pain or jaundice anxiety1 Pt has chronic a nxiety and depression Pt takes zoloft and xanax PRn and doing ok Pt denies any suicidal or homicidal thought Pt denies any crying spells pain Pt has chronic l ow back pain Pt denies any worsening pain. Pt denies any loss of bladder control pt failed NSAID and ultram. Pt takes norco PRN for pain. Pt has mild sciatica with leg neuropathy. Pt denies any saddle area paresthesia. Pt also takes neurontin and doing ok.. anxiety1 Pt has chronic a nxiety and depression Pt takes zoloft and xanax PRn and doing ok Pt denies any suicidal or homicidal thought Pt denies any crying spells pain Pt has chronic l ow back pain Pt denies any worsening pain. Pt denies any loss of bladder control pt failed NSAID and ultram. Pt takes norco PRN for pain. Pt has mild sciatica with leg neuropathy. Pt denies any saddle area paresthesia. Pt also takes neurontin and doing ok.. physical Pt needs annual physical Pt has chronic anxiety and depression. Pt takes zoloft and xanax PRn and doing ok. Pt denies any suicidal or homicidal thought .Pt denies any crying spells. Pt has HLP Pt takes crestor. Pt has DM .Pt is on lantus, amaryl, jardiance and glucose is around 120s . Pt does have neuropathy symptoms both LEs. Pt has chronic GERD. pt takes omeprazole and doing ok. Pt has chronic low back pain Pt denies any worsening pain. Pt denies any loss of bladder control pt failed NSAID and ultram. Pt takes norco PRN for pain. Pt has mild sciatica with leg neuropathy. Pt denies any saddle area paresthesia. Pt also takes neurontin and doing ok. Pt denies any other complaints anxiety1 Pt has chronic a nxiety and depression Pt takes zoloft and xanax PRn and doing ok Pt denies any suicidal or homicidal thought Pt denies any crying spells pain Pt has chronic l ow back pain Pt denies any worsening pain. Pt denies any loss of bladder control pt failed NSAID and ultram. Pt takes norco PRN for pain. Pt has mild sciatica with leg neuropathy. Pt denies any saddle area paresthesia. Pt also takes neurontin and doing ok.. sick pt c/o acute ons et of productive cough for one week with green phlegm Pt /o sinus congestion, ear pain, sore throat Pt denies any fever, chill pain Pt has chronic l ow back pain Pt denies any worsening pain. Pt denies any loss of bladder control pt failed NSAID and ultram. Pt takes norco PRN for pain. Pt has mild sciatica with leg neuropathy. Pt denies any saddle area paresthesia. Pt also takes neurontin and doing ok.. anxiety Pt has chronic a nxiety and depression Pt takes zoloft and xanax PRn and doing ok Pt denies any suicidal or homicidal thought Pt denies any crying spells HLP Pt has HLP Pt ta jarrell crestor Pt denies any myalgia DM Pt has DM with n europathy Pt is on neurontin, lantus, amaryl and mounjaro and jardiance and she has not been checking glucose at home Pt also has not followed up with endo for one year now. Pt denies any polyuria, ,polyidpisia pain Pt has chronic l ow back pain Pt denies any worsening pain. Pt denies any loss of bladder control pt failed NSAID and ultram. Pt takes norco PRN for pain. Pt has mild sciatica with leg neuropathy. Pt denies any saddle area paresthesia. Pt also takes neurontin and doing ok.. Pt has recurrent left knee pain, worse lately. Pt is seeing ortho and she will do PT for knee pain anxiety1 Pt has chronic a nxiety and depression Pt takes zoloft and xanax PRn and doing ok Pt denies any suicidal or homicidal thought Pt denies any crying spells IBS-D Pt has history o f frequent non bloody diarrhea with fecal incontinence Pt has yazan for colonoscopy in December of 2024 Pt states that her diarrhea resolved. pt also states that her fecal incontinence resolved also. GERD1 pt resumed omepr azole and her abd pain and gERD resolved GERD1 Pt has chronic G ERD, pt had benign EGD Pt doing ok with omeprazole. pt run out of omeprazole several weeks ago and she notices worsening GERD with mild midepigastric pain Pt needs omeprazole refilled . knee pain1 Pt c/o recurrent left knee pain for several months Pt went to ER recently and had to have her left knee drained Pt denies any redness or warmth or swelling Pt c/o throbbing pain inside left knee. Pt denies any injury incontinence1 pt has chronic u rinary incontinence Pt also notices frequent non bloody diarrhea and also unable to control her bowels for the past several months Pt has chronic low back pain with sciatica Pt denies any saddle area paresthesia. pain Pt has chronic l ow back pain Pt denies any worsening pain. Pt denies any loss of bladder control pt failed NSAID and ultram. Pt takes norco PRN for pain. Pt has mild sciatica with leg neuropathy. Pt denies any saddle area paresthesia. Pt also takes neurontin and doing ok.. Pt has recurrent left knee pain, worse lately. Pt had left knee drained recently anxiety1 Pt has chronic a nxiety and depression Pt takes zoloft and xanax PRn and doing ok Pt denies any suicidal or homicidal thought Pt denies any crying spells DM Pt has DM pt saw endo recently and she is off ozempic and she is on Mounjaro now along with jardiance and amaryl Pt states that Mounjaro does not hurt her stomach like ozempic does pain Pt has chronic l ow back pain Pt denies any worsening pain. Pt denies any loss of bladder control pt failed NSAID and ultram. Pt takes norco PRN for pain. Pt has mild sciatica with leg neuropathy. Pt denies any saddle area paresthesia. Pt also takes neurontin and doing ok.. anxiety1 Pt has chronic a nxiety and depression Pt takes zoloft and xanax PRn and doing ok Pt denies any suicidal or homicidal thought Pt denies any crying spells anxiety1 Pt has chronic a nxiety and depression Pt takes zoloft and xanax PRn and doing ok Pt denies any suicidal or homicidal thought Pt denies any crying spells pain Pt has chronic l ow back pain Pt denies any worsening pain. Pt denies any loss of bladder control pt failed NSAID and ultram. Pt takes norco PRN for pain. Pt has mild sciatica with leg neuropathy. Pt denies any saddle area paresthesia. Pt also takes neurontin and doing ok.. GI Pt c/o acute ons et of non bloody diarrhea, nausea, vomiting since two days ago pt denies any abd pain Pt notices weakness and loss of appetite Pt denies any fever, chill, cough, etc . pain1 Pt has chronic l ow back pain Pt denies any worsening pain. Pt denies any loss of bladder control pt failed NSAID and ultram. Pt takes norco PRN for pain. Pt has mild sciatica with leg neuropathy. Pt denies any saddle area paresthesia. Pt also takes neurontin and doing ok.. pt states that left knee pain improved and she did not see ortho anxiety1 Pt has chronic a nxiety and depression Pt takes zoloft and xanax PRn and doing ok Pt denies any suicidal or homicidal thought Pt denies any crying spells pain Pt has chronic l ow back pain Pt denies any worsening pain. Pt denies any loss of bladder control pt failed NSAID and ultram. Pt takes norco PRN for pain. Pt has mild sciatica with leg neuropathy. Pt denies any saddle area paresthesia. Pt also takes neurontin and doing ok.. pt states that left knee pain improved and she did not see ortho anxiety1 Pt has chronic a nxiety and depression Pt takes zoloft and xanax PRn and doing ok Pt denies any suicidal or homicidal thought Pt denies any crying spells pain Pt has chronic l ow back pain Pt denies any worsening pain. Pt denies any loss of bladder control pt failed NSAID and ultram. Pt takes norco PRN for pain. Pt has mild sciatica with leg neuropathy. Pt denies any saddle area paresthesia. Pt also takes neurontin and doing ok. anxiety1 Pt has chronic a nxiety and depression Pt takes zoloft and xanax PRn and doing ok Pt denies any suicidal or homicidal thought Pt denies any crying spells left knee pain1 Pt c/o chronic l eft knee pain. She notices some swelling recently and she went to Er and she had x ray done which showed small joint effusion Pt had left knee drained and she received steroid shot to left knee .Pt denies any knee swelling or redness or warmth Pt notices improvement of left knee pain Pt denies any injury knee pain1 Pt c/o left knee pain for several months Pt denies an injury Pt denies any swelling redness or warmth pt denies any calf pain pain Pt has chronic l ow back pain Pt denies any worsening pain. Pt denies any loss of bladder control pt failed NSAID and ultram. Pt takes norco PRN for pain. Pt has mild sciatica with leg neuropathy. Pt denies any saddle area paresthesia. Pt also takes neurontin and doing ok. anxiety1 Pt has chronic a nxiety and depression Pt takes zoloft and xanax PRn and doing ok Pt denies any suicidal or homicidal thought Pt denies any crying spells pain Pt has chronic l ow back pain Pt denies any worsening pain. Pt denies any loss of bladder control pt failed NSAID and ultram. Pt takes norco PRN for pain. Pt has mild sciatica with leg neuropathy. Pt denies any saddle area paresthesia. Pt also takes neurontin and doing ok. anxiety1 Pt has chronic a nxiety and depression Pt takes zoloft and xanax PRn and doing ok Pt denies any suicidal or homicidal thought Pt denies any crying spells DM Pt has DM Pt see s endo. She is on ozempic, jardiance and amaryl and her A1c is down to 6.0 Her glucose is around 136 Pt denies any polyuria, polydipsia Pt has mild neuropathy symptoms LFT Pt has borderlin e elevated LFT. Pt denies any abd pain or jaundice Pt rarely drinks alcohol . HLP Pt has HLP Pt jeannette vieyra crestor and her lipid profile is ok Pt denies any myalgia knee pain1 Pt c/o acute ons et of left knee pain for several weeks. Pt denies any injury, swelling, redness or warmth Pt denies any calf pain ,Pt notices sharp pain when she bend her left knee . anxiety1 Pt has chronic a nxiety and depression Pt takes zoloft and xanax PRn and doing ok Pt denies any suicidal or homicidal thought Pt denies any crying spells mammo Pt had normal ma mmo and benign LDCT Pt no longer smoking Pt has stable lung nodule. Pt has not done lab yet pain Pt has chronic l ow back pain Pt denies any worsening pain. Pt denies any loss of bladder control pt failed NSAID and ultram. Pt takes norco PRN for pain. Pt has mild sciatica with leg neuropathy. Pt denies any saddle area paresthesia. Pt also takes neurontin and doing ok. HTN Pt has HTN Pt jeannette vieyra lisinopril and she needs it refilled. her bp is around 130/80. Pt denies any chest pain HLP Pt has HLP Pt jeannette vieyra emmaihsan .Pt denies any myalgia Pt has not done lab yet physical Pt needs annual physical Pt has chronic anxiety and depression. Pt takes zoloft and xanax PRn and doing ok. Pt denies any suicidal or homicidal thought .Pt denies any crying spells. Pt has HLP Pt takes crestor. Pt has DM .Pt uses ozempic, amaryl, jardiance and ozempic. She saw her endo last month and her A1c was down to 5.4. . Pt does have neuropathy symptoms both LEs. Pt has chronic GERD. pt takes omeprazole and doing ok. Pt has chronic low back pain Pt denies any worsening pain. Pt denies any loss of bladder control pt failed NSAID and ultram. Pt takes norco PRN for pain. Pt has mild sciatica with leg neuropathy. Pt denies any saddle area paresthesia. Pt also takes neurontin and doing ok. pain Pt has chronic l ow back pain Pt denies any worsening pain. Pt denies any loss of bladder control pt failed NSAID and ultram. Pt takes norco PRN for pain. Pt has mild sciatica with leg neuropathy. Pt denies any saddle area paresthesia. Pt also takes neurontin and doing ok. tobacco1 Pt has 57 pack y ear history. Pt denies any hemoptysis or sob or cough. Pt no longer smoking DM Pt has DM. Pt us es lantus insulin ozempic, jardiance and amaryl. Pt has not been checking her glucose at home and is around 150s. .Pt made yazan with endo and she has yazan next week anxiety1 Pt has chronic a nxiety and depression Pt takes zoloft and xanax PRn and doing ok Pt denies any suicidal or homicidal thought Pt denies any crying spells DM Pt has DM. Pt us es lantus insulin ozempic, jardiance and amaryl. Pt has not been checking her glucose and also she has not followed up with endo for long time .Pt is really noncompliant with DM care. Her A1c was over 11. Pt denies any polyuria, polydipsia. back pain1 Pt has chronic l ow back pain Pt denies any worsening pain. Pt denies any loss of bladder control pt failed NSAID and ultram. Pt takes norco PRN for pain. Pt has mild sciatica with leg neuropathy. Pt denies any saddle area paresthesia. Pt also takes neurontin and doing ok. fatty liver1 Pt has fatty boyd er Pt denies any abd pain or jaundice. anxiety1 Pt has chronic a nxiety and depression Pt takes zoloft and xanax PRn and doing ok Pt denies any suicidal or homicidal thought Pt denies any crying spells pain Pt has chronic l ow back pain Pt denies any worsening pain. Pt denies any loss of bladder control pt failed NSAID and ultram. Pt takes norco PRN for pain. Pt has mild sciatica with leg neuropathy. Pt denies any saddle area paresthesia. Pt also takes neurontin and doing ok. anxiety1 Pt has chronic a nxiety and depression Pt takes zoloft and xanax PRn and doing ok Pt denies any suicidal or homicidal thought Pt denies any crying spells pain Pt has chronic l ow back pain Pt denies any worsening pain. Pt denies any loss of bladder control pt failed NSAID and ultram. Pt takes norco PRN for pain. Pt has mild sciatica with leg neuropathy. Pt denies any saddle area paresthesia. Pt also takes neurontin and doing ok. Pt has not picked up norco from last month due to national shortage of norco 10 mg anxiety1 Pt has chronic a nxiety and depression Pt takes zoloft and xanax PRn and doing ok Pt denies any suicidal or homicidal thought Pt denies any crying spells pain Pt has chronic l ow back pain Pt denies any worsening pain. Pt denies any loss of bladder control pt failed NSAID and ultram. Pt takes norco PRN for pain. Pt has mild sciatica with leg neuropathy. Pt denies any saddle area paresthesia. Pt also takes neurontin and doing ok anxiety1 Pt has chronic a nxiety and depression Pt takes zoloft and xanax PRn and doing ok Pt denies any suicidal or homicidal thought Pt denies any crying spells anxiety1 Pt has chronic a nxiety and depression Pt takes zoloft and xanax PRn and doing ok Pt denies any suicidal or homicidal thought Pt denies any crying spells GERD1 Pt has chronic G ERD. Pt had benign EGD Pt takes omeprazole and doing ok Pt needs it refilled Pt denies any abd pain pain Pt has chronic l ow back pain Pt denies any worsening pain. Pt denies any loss of bladder control pt failed NSAID and ultram. Pt takes norco PRN for pain. Pt has mild sciatica with leg neuropathy. Pt denies any saddle area paresthesia. Pt also takes neurontin and doing ok DM Pt has DM Pt pancho es lantus, ozempic, amaryl and also jardiance and she states that she saw endo recently and her A1c was done to 7.6. Pt states that her glucose is around 135 at home Pt will get dexcom sugar testing supply soon CAD Pt has CAD Pt de nies any chest pain Pt saw cardiology and she had benign nuclear cardiac stress test and echo. anxiety1 Pt has chronic a nxiety and depression Pt takes zoloft and xanax PRn and doing ok Pt denies any suicidal or homicidal thought Pt denies any crying spells pain Pt has chronic l ow back pain Pt denies any worsening pain. Pt denies any loss of bladder control pt failed NSAID and ultram. Pt takes norco PRN for pain. Pt has mild sciatica with leg neuropathy. Pt denies any saddle area paresthesia. Pt also takes neurontin and doing ok anxiety1 Pt has chronic a nxiety and depression Pt takes zoloft and xanax PRn and doing ok Pt denies any suicidal or homicidal thought Pt denies any crying spells CAD Pt has CAD Pt de nies any chest pain or sob Pt saw cardiology recently and she will do cardiac echo and nuclear stress test pain Pt has chronic l ow back pain Pt denies any worsening pain. Pt denies any loss of bladder control pt failed NSAID and ultram. Pt takes norco PRN for pain. Pt has mild sciatica with leg neuropathy. Pt denies any saddle area paresthesia. Pt also takes neurontin and doing ok pain Pt has chronic l ow back pain Pt denies any worsening pain. Pt denies any loss of bladder control pt failed NSAID and ultram. Pt takes norco PRN for pain. Pt has mild sciatica with leg neuropathy. Pt denies any saddle area paresthesia. Pt also takes neurontin and doing ok anxiety Additional infor blaise: Pt has chronic anxiety and depression Pt takes zoloft and xanax PRn and doing ok Pt denies any suicidal or homicidal thought Pt denies any crying spells. pain Pt has chronic l ow back pain Pt denies any worsening pain. Pt denies any loss of bladder control pt failed NSAID and ultram. Pt takes norco PRN for pain. Pt has mild sciatica with leg neuropathy. Pt denies any saddle area paresthesia. Pt also takes neurontin and doing ok anxiety1 Pt has chronic a nxiety and depression Pt takes zoloft and xanax PRn and doing ok Pt denies any suicidal or homicidal thought Pt denies any crying spells DM Pt has DM pt is on ozempic, amaryl, jardiance and lantus 40 units daily. He saw endo two weeks ago and she states that her glucose has been improving. She states that her endo did not change any of her meds Pt states that she has been eating healthier and her glucose is around 120s. fatty liver1 Pt had LDCT done which showed fatty liver and CAD pt denies any chest pain. Pt denies any abd pain or jaundice. GERD1 Pt has chronic G ERD Pt doing ok with omeprazole Pt failed pepcid. Pt has frequent GERD without omeprazole. DM Pt has DM Pt pancho es lantus, ozempic, amaryl and jardiance. Pt does not know the dosage of lantus and ozempic. her glucose was over 400 Pt denies any polyuria ,polydipsia ,Pt has not made yazan with endo yet HLP Pt has HLP .Pt h as not started crestor yet Pt is noncompliant. She thinks that she is still on zocor aniety1 Pt has chronic a nxiety and depression Pt takes zoloft and xanax PRn and doing ok Pt denies any suicidal or homicidal thought Pt denies any crying spells pain Pt has chronic l ow back pain Pt denies any worsening pain. Pt denies any loss of bladder control pt failed NSAID and ultram. Pt takes norco PRN for pain. Pt has mild sciatica with leg neuropathy. Pt denies any saddle area paresthesia. Pt also takes neurontin and doing ok LFT Pt has high LFT .Pt denies any abd pain or jaundice. HLP Pt has HLP Pt ta kes zocor Pt denies any myalgia. Her LDL is not at goal. Her TG is borderline high anxiety1 Pt has chronic a nxiety and depression Pt takes zoloft and xanax PRn and doing ok Pt denies any suicidal or homicidal thought Pt denies any crying spells DM Pt has DM. Pt us es lantus and ozempic and she takes jardiance, amaryl and her glucose is getting worse as well as her A1c, which is over 11 again Pt is rather noncompliant with medication and diet, she has low sodium and proteinuria as well back pain1 Pt has chronic l ow back pain Pt denies any worsening pain. Pt denies any loss of bladder control pt failed NSAID and ultram. Pt takes norco PRN for pain. Pt has mild sciatica with leg neuropathy. Pt denies any saddle area paresthesia. Pt is back on neurontin and is helping. DM Pt has DM. Pt ta kes lantus, ozempic, amaryl and jardiance. Pt is in [place] but she forgot all her medication with her. Pt states that her glucose has been elevated to 200 without her DM meds GErD1 Pt also forgot h er omeprazole at home and she is in [place] for another 10 days or so. Pt c/o GERD HTN Pt has HTn pt fo rgot her lisinopril at home. Pt states that she feels slightly dizzy and her bp is around 150/100 without lisinopril. Pt denies any chest pain anxiety1 Pt has chronic a nxiety and depression Pt takes zoloft and xanax PRn and doing ok Pt denies any suicidal or homicidal thought Pt denies any crying spells pain Pt has chronic l ow back pain Pt denies any worsening pain. Pt denies any loss of bladder control pt failed NSAID and ultram. Pt takes norco PRN for pain. Pt has mild sciatica with leg neuropathy. Pt denies any saddle area paresthesia. Pt is back on neurontin and is helping. pain Pt has chronic l ow back pain Pt denies any worsening pain. Pt denies any loss of bladder control pt failed NSAID and ultram. Pt takes norco PRN for pain. Pt has mild sciatica with leg neuropathy. Pt denies any saddle area paresthesia. Pt is back on neurontin and is helping. anxieyt1 Pt has chronic a nxiety and depression Pt takes zoloft and xanax PRn and doing ok Pt denies any suicidal or homicidal thought Pt denies any crying spells DM Pt has DM, pt se es endo and she was told that she needs insurance referral again . knee pain1 Pt c/o intermitt ent right knee pain for several months, worse lately .Pt denies any injury .Pt has throbbing right knee pain, worse with bending Pt denies any swelling, redness or warmth. physical Pt needs annual physical Pt has chronic anxiety and depression. Pt takes zoloft and xanax PRn and doing ok. Pt denies any suicidal or homicidal thought .Pt denies any crying spells. Pt has HLP Pt takes zocor. Pt has DM .Pt uses lantus and she takes jardiance and amaryl per endo. Her last A1c was 7.5 3 months ago. Pt does have neuropathy symptoms both LEs. Pt has chronic GERD. pt takes omeprazole and doing ok. Pt c/o urinary frequency and urgency at night only for several months. Pt denies any urinary symptoms during the day. Pt states that she wakes up and has to urinate at least 2-3 per night and last night she started to have some low pelvic pressure as well. Pt denies any flank pain. Pt denies any PND or orthopnea. Pt also feels cold and clammy currently. Pt denies any sore throat, sinus symptoms, cough, sob, chest pain, etc anxiety1 Pt has chronic a nxiety and depression Pt takes zoloft and xanax PRn and doing ok Pt denies any suicidal or homicidal thought Pt denies any crying spells pain Pt has chronic l ow back pain Pt denies any worsening pain. Pt denies any loss of bladder control pt failed NSAID and ultram. Pt takes norco PRN for pain. Pt has mild sciatica with leg neuropathy. Pt denies any saddle area paresthesia. Pt is back on neurontin and is helping. anxiety1 Pt has chronic a nxiety and depression Pt takes zoloft and xanax PRn and doing ok Pt denies any suicidal or homicidal thought Pt denies any crying spells pain Pt has chronic l ow back pain Pt denies any worsening pain. Pt denies any loss of bladder control pt failed NSAID and ultram. Pt takes norco PRN for pain. Pt has mild sciatica with leg neuropathy. Pt denies any saddle area paresthesia. Pt is back on neurontin and is helping. DM Pt has DM. Pt ta kes lantus, jardiance ,ozempic and amaryl per endo and her recent A1c was 7.6 which was slightly better than before. Pt denies any polyuria, polydipsia. Pt has neuropathy and she takes neurontin and doing ok anxiety1 Pt has chronic a nxiety and depression Pt takes zoloft and xanax PRn and doing ok Pt denies any suicidal or homicidal thought Pt denies any crying spells pain Pt has chronic l ow back pain. Pt denies any worsening pain. Pt denies any loss of bladder control. pt failed NSAID and ultram. Pt takes norco PRN for pain. Pt has mild sciatica with leg neuropathy. Pt denies any saddle area paresthesia. Pt is back on neurontin and is helping. HLP Pt has HLP Pt is taking zocor but her endo started on lipitor as well?? Pt is taking both. Pt denies any myalgia pain Pt has chronic l ow back pain Pt denies any worsening pain. Pt denies any loss of bladder control pt failed NSAID and ultram. Pt takes norco PRN for pain. Pt has mild sciatica with leg neuropathy. Pt denies any saddle area paresthesia. Pt is back on neurontin and is helping. anxiety1 Pt has chronic a nxiety and depression Pt takes zoloft and xanax PRn and doing ok Pt denies any suicidal or homicidal thought Pt denies any crying spells GERD1 Pt has chronic G ERD. Pt had benign EGD pt doing ok with omeprazole. Pt failed pepcid. Pt has daily GERD without omeprazole pain Pt has chronic l ow back pain Pt denies any worsening pain. Pt denies any loss of bladder control pt failed NSAID and ultram. Pt takes norco PRN for pain. Pt has mild sciatica with leg neuropathy. Pt denies any saddle area paresthesia. Pt is back on neurontin and is helping. DM Pt has DM. Pt ta kes lantus, jardiance, amaryl and ozempic. She saw endo recently and ozempic was increased to 1 mg. Pt states that her glucose is around 120s. thyroid1 Pt has suppresse d TSH. pt denies any dysphagia or neck pain. her thyroid ultrasound is ok. Pt saw endo and she will get thyroid and TPO and TSI checked again and no treatment offered. HLP Pt has HLP .Pt t aksanjuana zocor. Pt denies any myalgia anxiety1 Pt has chronic a nxiety and depression Pt takes zoloft and xanax PRn and doing ok Pt denies any suicidal or homicidal thought Pt denies any crying spells anxiety1 Pt has chronic a nxiety and depression Pt takes zoloft and xanax PRn and doing ok Pt denies any suicidal or homicidal thought Pt denies any crying spells pain Pt has chronic l ow back pain Pt denies any worsening pain. Pt denies any loss of bladder control pt failed NSAID and ultram. Pt takes norco PRN for pain. Pt has mild sciatica with leg neuropathy. Pt denies any saddle area paresthesia. Pt restarted neurontin due to pain and neuropathy HLP Pt has HLP Pt ta kes zocor. Pt denies any myalgia HTN Pt has HTN Pt ta kes lisinopril and her bp is around 130/70. Pt denies any chest pain or headache anxiety1 Pt has chronic a nxiety and depression Pt takes zoloft and xanax PRn and doing ok Pt denies any suicidal or homicidal thought Pt denies any crying spells pain Pt has chronic l ow back pain Pt denies any worsening pain. Pt denies any loss of bladder control pt failed NSAID and ultram. Pt takes norco PRN for pain. Pt has mild sciatica with leg neuropathy. Pt denies any saddle area paresthesia. anxiety Pt has chronic a nxiety and depression Pt takes zoloft and xanax PRn and doing ok Pt denies any suicidal or homicidal thought Pt denies any crying spells pain Pt has chronic l ow back pain Pt denies any worsening pain. Pt denies any loss of bladder control pt failed NSAID and ultram. Pt takes norco PRN for pain. Pt weaned herself off neurontin.. Pt has mild sciatica with leg neuropathy. Pt denies any saddle area paresthesia. pain Pt has chronic l ow back pain Pt denies any worsening pain. Pt denies any loss of bladder control pt failed NSAID and ultram. Pt takes norco PRN for pain. Pt weaned herself off neurontin.. Pt has mild sciatica with leg neuropathy. Pt denies any saddle area paresthesia. thyroid1 Pt has high thyr oid Pt denies any dysphagia or neck pain Pt had normal thyroid ultrasound. anxiety Pt has chronic a nxiety and depression Pt takes zoloft and xanax PRn and doing ok Pt denies any suicidal or homicidal thought Pt denies any crying spells GERD1 Pt has chronic G ERD Pt takes omeprazole and doing ok pt needs refill Pt denies any abd pain back pain1 Pt has chronic l ow back pain Pt denies any worsening pain. Pt denies any loss of bladder control pt failed NSAID and ultram. Pt takes norco PRN for pain. Pt also takes neurontin which helps. Pt has mild sciatica with leg neuropathy. Pt denies any saddle area paresthesia. anxiety Pt has chronic a nxiety and depression. Pt takes zoloft and xanax PRn and doing ok. Pt denies any suicidal or homicidal thought Pt denies any crying spells thyroid1 Pt has overactiv e thyroid Pt denies any chest pain or headache or dysphagia Pt had normal thyroid ultrasound .Pt told me endo told her thyroid is ok but in fact, endo never addressed her thyroid issue at all during her last visit anxiety1 Pt has chronic a nxiety Pt takes zoloft and xanax PRn and doing ok. Pt denies any suicidal or homicidal thought Pt denies any crying spells pain Pt has chronic l ow back pain Pt denies any worsening pain. Pt denies any loss of bladder control pt failed NSAID and ultram. Pt takes norco PRN for pain. Pt also takes neurontin which helps. Pt has mild sciatica with leg neuropathy. Pt denies any saddle area paresthesia. thyroid1 Pt has high thyr oid which most likely due to grave disease Pt denies any weight loss dysphagia or neck pain Pt denies any chest pain Pt just had thyroid ultrasound done which was benign .Pt just saw endo recently and she told me everything is ok for her thyroid per endo tobacco1 Pt no longer smo marsha Pt denies any hemoptysis, sob or cough .Pt had benign LDCT. However, she does have mild cad on CT scan Pt denies any chest pain or sob HTN Pt has HTN Pt ta kes lisinopril and her bp is stable anxiety1 Pt has chronic a nxiety Pt takes zoloft and xanax PRn and doing ok. Pt denies any suicidal or homicidal thought Pt denies any crying spells thyroid1 Pt has elevated thyroid and TSI. Pt denies any weight loss ,dysphagia or chest pain or headache. Pt denies any palpitation. Pt has not done thyroid ultrasound yet pain Pt has chronic l ow back pain Pt denies any worsening pain. Pt denies any loss of bladder control pt failed NSAID and ultram. Pt takes norco PRN for pain. Pt also takes neurontin which helps. Pt has mild sciatica. Pt denies any saddle area paresthesia. tobacco1 Pt has 37 pack y ear tobacco smoking history. Pt denies any hemoptysis, sob or cough Pt needs LDCT. Pt still has not done that yet. pt also had COVID pneumonia recently Pt appears to be fully recovered .Pt denies any sob or chest pain or cough or fever anxiety Pt has chronic a nxiety Pt takes zoloft and xanax PRn and doing ok. Pt denies any suicidal or homicidal thought Pt denies any crying spells thyroid Pt has elevated thyroid and TSI. Pt denies any weight loss ,dysphagia or chest pain or headache. Pt denies any weight loss COVID1 Pt recovered com pletely from COVID. CT scan did show COVID pneumonia. Pt denies any cough, sob or hemoptysis. pain Pt has chronic l ow back pain Pt denies any worsening pain. Pt denies any loss of bladder control pt failed NSAID and ultram. Pt takes norco PRN for pain. Pt also takes neurontin which helps. Pt has mild sciatica. Pt denies any saddle area paresthesia. anxiety Pt has chronic a nxiety Pt takes zoloft and xanax PRn and doing ok. Pt denies any suicidal or homicidal thought Pt denies any crying spells pain Pt has chronic l ow back pain Pt denies any worsening pain. Pt denies any loss of bladder control pt failed NSAID and ultram. Pt takes norco PRN for pain. Pt also takes neurontin which helps. DM Pt has DM. Pt ta kes lantus, amaryl and jardiance and her A1c is around 8. Pt sees endo. Pt denies any polyuria, polydipsia. fatty liver1 Pt has fatty boyd er pt denies any abd pain or jaundice. thyroid1 Pt has elevated thyroid and TSI. Pt denies any weight loss ,dysphagia or chest pain or headache. COVID Pt recently had CVOID pneumonia Pt denies any feer, cough, sob now. Pt has not done chest Ct yet pain Pt has chronic l ow back pain Pt denies any worsening pain. Pt denies any loss of bladder control pt failed NSAID and ultram. Pt takes norco PRN for pain. Pt also takes neurontin which helps. anxiety Pt has chronic a nxiety Pt takes zoloft and xanax PRn and doing ok. Pt denies any suicidal or homicidal thought Pt denies any crying spells COVID1 Pt contacted COV ID last month and she has been self quarantine at home. Pt currently feels fine now Pt denies any cough, fever, sob, chest pain, etc Pt states that she never heard from health department. tobacco Pt needs LDCT Pt has 37 pack year tobacco and she quit 3 years ago Pt denies any cough, sob or hemoptysis. GERD Pt takes omepraz ole daily Pt denies any abd pain or gerd. Pt failed pepcid Pt has daily GERD without omeprazole COVID Pt has been feel ing sick for one week with some fatigue, abdominal cramp and non-bloody diarrhea. Pt denies any cough or fever or sob. Pt denies any sick contact .Pt went to ER yesterday and she was tested positive for COVID-19. Pt received some fluid and also some diarrhea meds and she has been home resting and self quarantine now. pain Pt has chronic l ow back pain pt denies any worsening pain. Pt denies any loss of bladder control pt failed NSAID and ultram. Pt takes norco PRN for pain. Pt also takes neurontin which helps. anxiety1 Pt has chronic a nxiety and depression Pt takes zoloft and xanax PRn and doing ok Pt denies any suicidal or homicidal thought ,Pt denies any crying spells HLP Pt has HLP Pt ta kenano zocor Pt denies any myalgia Pt needs refilled tobacco1 Pt has 37 pack y ear tobacco smoking history. Pt denies any hemoptysis, sob or cough Pt needs LDCT pain Pt has chronic l ow back pain pt denies any worsening pain. Pt denies any loss of bladder control pt failed NSAID and ultram. Pt takes norco PRN for pain. Pt also takes neurontin which helps. anxiety Pt has chronic a nxiety and depression Pt takes zoloft and xanax PRn and doing ok Pt denies any suicidal or homicidal thought ,Pt denies any crying spells GERD Pt had EGD done last year which showed gastris without [place]oya. Pt takes omeprazole and doing ok .pt denies any abd pain Pt had GERD without omeprazole .Pt failed pepcid pain Pt has chronic l ow back pain pt denies any worsening pain. Pt denies any loss of bladder control pt failed NSAID and ultram. Pt takes norco PRN for pain. Pt also takes neurontin which helps. anxiety Pt has chronic a nxiety and depression Pt takes zoloft and xanax PRn and doing ok Pt denies any suicidal or homicidal thought ,Pt denies any crying spells DM Pt has DM Pt pancho es jardiance, amaryl and lantus. Pt saw her endo last week and she had finger stick for A1c and was around 7.4 per pt. Pt also had a figure stick done for lipid and she was told to stop zocor and she was started on something else but she is not sure why and what thyroid pt has history o f high thyroid Pt denies any dysphagia or neck pain. P tis not sure if she addressed above with endo. pain Pt has chronic l ow back pain pt denies any worsening pain. Pt denies any loss of bladder control pt failed NSAID and ultram. Pt takes norco PRN for pain. Pt also takes neurontin which helps. anxiety Pt has chronic a nxiety and depression Pt takes zoloft and xanax PRn and doing ok Pt denies any suicidal or homicidal thought ,Pt denies any crying spells DM Pt takes jardian ce, amaryl and lantus pt states that she has not been checking her glucose on her own lately pt sees endo. Pt denies any polyuria, polydipsia pain Pt has chronic l ow back pain pt denies any worsening pain. Pt denies any loss of bladder control pt failed NSAID and ultram. Pt takes norco PRN for pain. Pt also takes neurontin which helps. anxiety1 Pt has chronic a nxiety and depression Pt takes zoloft and xanax PRn and doing ok Pt denies any suicidal or homicidal thought ,Pt denies any crying spells anxiety1 Pt has chronic a nxiety and depression Pt takes zoloft and xanax PRn and doing ok Pt denies any suicidal or homicidal thought ,Pt denies any crying spells cataract1 Pt has bilateral cataract. Pt will have left eye cataract surgery under [facility] next Sunday. Pt needs surgical clearance. GERD1 Pt has chronic G ERD. Pt takes omeprazole daily .Pt failed pepcid. PT had EGD and colonoscopy recently and was told normal. Pt has daily GERD without omeprazole. Pt denies any abd pain pain Pt has chronic l ow back pain pt denies any worsening pain. Pt denies any loss of bladder control pt failed NSAID and ultram. Pt takes norco PRN for pain. Pt also takes neurontin which helps. pain Pt has chronic l ow back pain pt denies any worsening pain. Pt denies any loss of bladder control pt failed NSAID and ultram. Pt takes norco PRN for pain anxiety1 Pt has chronic a nxiety and depression Pt takes zoloft and xanax PRn and doing ok Pt denies any suicidal or homicidal thought ,Pt denies any crying spells pain1 Pt has chronic l ow back pain pt denies any worsening pain. Pt denies any loss of bladder control pt failed NSAID and ultram. Pt takes norco PRN for pain anxiety1 Pt has chronic a nxiety and depression Pt takes zoloft and xanax PRn and doing ok Pt denies any suicidal or homicidal thought ,Pt denies any crying spells osteopenia1 Pt has osteopeni a. Pt is taking calcium and D now .Pt denies any fx. GERD1 Pt has GERD and colon polyp Pt just had EGD and colonoscopy and she was told they were ok DM Pt has DM. Pt ta kes lantus and she just saw endo and she was started on farxiga 10 mg daily in addition to lantus and amaryl. .Pt states that her glucose is 150s. Pt had in office A1c done which was only 7 now .Pt takes neurontin also pain Pt has chronic l ow back pain pt denies any worsening pain. Pt denies any loss of bladder control pt failed NSAID and ultram. Pt takes norco PRN for pain anxiety1 Pt has chronic a nxiety and depression Pt takes zoloft and xanax PRn and doing ok Pt denies any suicidal or homicidal thought ,Pt denies any crying spells DM Pt has DM Pt pancho es lantus and amaryl. Pt still has not seen endo yet Pt states that her glucose is around 150s. Pt denies any polyuria, polydipsia ,pt has neuropathy Pt takes neurontin and doing ok. Pt has missed endo appointment for at least 4-5 times so far. HTN Pt has HTN. Pt t akes lisinopril. Pt has not checked her bp for a while. colon polyp1 Pt has tubular a denoma, Pt denies any Gi issue or bleeding Pt told me she will NOT do colonoscopy since it will cost her $250 GERD1 Pt has chronic G ERD. pt takes omeprazole and doing ok Pt failed pepcid Pt denies any abd pain Pt had benign EGD anxity1 Pt has chronic a nxiety and depression Pt takes zoloft and xanax PRn and doing ok Pt denies any suicidal or homicidal thought ,Pt denies any crying spells pain Pt has chronic l ow back pain pt denies any worsening pain. Pt denies any loss of bladder control pt failed NSAID and ultram. Pt takes norco PRN for pain DM Pt has DM with n europathy Pt takes lantus 30 units, when she supposes to take 35 units Pt states that her glucose is around 250 Pt still has not seen endo yet .Pt takes neurontin. Pt denies any hypoglycemia pain Pt has chronic l ow back pain pt denies any worsening pain. Pt denies any loss of bladder control pt failed NSAID and ultram. Pt takes norco PRN for pain DM Pt has DM, Pt ta kes lantus 35 units at night and amaryl. her BG is around 200. Pt has yazan with endo in 2 weeks. Pt denies any hypoglycemia anxiety1 Pt has anxiety a nd depression Pt takes zoloft and xanax PRN and doing ok pt denies any suicidal or homicidal thought. Pt denies any crying spells colonscopy1 Pt states that [facility] does not take her insurance. Pt needs to repeat colonoscopy pain Pt has chronic l ow back pain pt denies any worsening pain. Pt denies any loss of bladder control pt failed NSAID and ultram. Pt takes norco PRN for pain DM Pt has DM Pt pancho es lantus 25 units daily and amaryl. her glucose is between 150-200, which is better Pt has yazan with endo at end of this month Pt denies any hypoglycemia polyp1 Pt has tubular a denoma Pt denies any Gi issue ,Pt has not set up colonoscopy yet anxiety1 Pt has anxiety a nd depression Pt takes zoloft and xanax PRN and doing ok pt denies any suicidal or homicidal thought. Pt denies any crying spells pain1 Pt has chronic l ow back pain pt denies any worsening pain. Pt denies any loss of bladder control pt failed NSAID and ultram. Pt takes norco PRN for pain. Pt does have neuropathy and she takes neurontin and doing ok [id number] Pt has anxiety a nd depression Pt takes zoloft and xanax PRN and doing ok pt denies any suicidal or homicidal thought. Pt denies any crying spells DM Pt has DM, which is poorly controlled. She states that BG is between 200-250s now with lantus 20 units pt denies any polyuria, polydipsia. pt does have blurred vision and she went to see her eye doctor and told her she has sugar induced vision issue Pt had appointment with Dr. Diaz on 03/15/20 but she DID NOT go. Pt canceled her appointment due to ride issue but she never made appointment again? pt has neuropathy and she takes neurontin HLP Pt has HLP Pt ta kes zocor, Pt denies any myalgia. GERD1 Pt has chronic G ERD. Pt takes omeprazole and doing ok Pt failed pepcid. pt denies any abd pain, nausea, vomiting bone Pt needs bone de nsity screening DM Pt has DM, Pt st ate that her glucose is between 250-299. Pt has not heard from Dr. Diaz and she made yazan with Dr. Barlow but her yazan was canceled. pt is confused. Pt takes 10 units of lantus anxiety1 Pt has anxiety a nd depression Pt takes zoloft and xanax PRN and doing ok pt denies any suicidal or homicidal thought. Pt denies any crying spells pain Pt has chronic l ow back pain pt denies any worsening pain. Pt denies any loss of bladder control pt failed NSAID and ultram. Pt takes norco PRN for pain. Pt does have neuropathy and she takes neurontin and doing ok anxiety1 Pt has anxiety a nd depression Pt takes zoloft and xanax PRN and doing ok pt denies any suicidal or homicidal thought. Pt denies any crying spells back pain1 Pt has chronic l ow back pain pt denies any worsening pain. Pt denies any loss of bladder control pt failed NSAID and ultram. Pt takes norco PRN for pain DM Pt has DM. Pt ta kes lantus and amaryl. Pt still has not been able to check her glucose at all since she lost all her lancets?? Pt denies any hypoglycemia. Pt has neuropathy and she takes neurontin and doing ok Pt denies any chest pain, dizziness, palpitation, headache polyp1 Pt has tubular a denoma on colonoscopy Pt got a call from GI who told her that her procedure will be postponed due to COVID-19. Pt denies any lower GI issue Hyponatremia 1 Patient has bord kat hyponatremia. Patient denies any headache. Patient denies any confusion. alk phos1 Patient has high alk phos. 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 Patient is current anxiety and depression. Patient takes Horner and Xanax and Zoloft. Patient denies any suicidal homicidal thought. Patient denies any crying spells. Patient also take gabapentin. thyroid1 Patient has slig htly suppressed TSH but her free T4 is okay. Patient denies any chest pain or headache. Patient denies any dysphasia or neck pain. DM1 Patient has poor ly controlled diabetes. Patient denies any polyuria polydipsia. Patient does have neuropathy symptoms. Patient takes glimepiride. Her A1c is over 11 and her sugar is 381. Patient denies any eye symptoms. GERD1 Pt has GERD. Pt takes omeprazole and doing ok. Pt failed pepcid and zantac pt has daily GERd pt had benign EGD Pt needs omeprazole refilled anxiety1 Pt has anxiety a nd depression Pt takes zoloft and xanax PRN and doing ok pt denies any suicidal or homicidal thought pain1 Pt has chronic l ow back pain pt denies any worsening pain. Pt denies any loss of bladder control pt failed NSAID and ultram. Pt takes norco PRN for pain DM Pt has DM pt pancho es amaryl only pt unable to tolerate metformin Pt states that her glucose is around 160s. Pt denies any polyuria polydipsia physical Pt needs annual physical. Pt has chronic anxiety and depression, pt takes zoloft and xanax PRn and doing ok, Pt denies any suicidal or homicidal thought Pt denies any crying spells ,Pt has chronic low back pain Pt denies any worsening pain Pt denies any loss of bladder control pt has neuropathy. Pt takes neurontin. Pt has DM Pt takes amaryl only. her glucose is around 150 per pt. She has chronic GERD. Pt takes omeprazole and doing ok. Pt denies any other complaints tobacco1 Pt has 37 pack y ear tobacco, Pt denies any sob, hemoptysis, or cough chronic pain1 Pt has chronic l ow back pain pt denies any worsening pain. Pt denies any loss of bladder control pt failed NSAID and ultram. Pt takes norco PRN for pain anxiety1 Pt has anxiety a nd depression Pt takes zoloft and xanax PRN and doing ok pt denies any suicidal or homicidal thought GERD anxiety1 Pt has anxiety a nd depression Pt takes zoloft and xanax PRN and doing ok pt denies any suicidal or homicidal thought chronic pain1 Pt has chronic l ow back pain pt denies any worsening pain. Pt denies any loss of bladder control pt failed NSAID and ultram. Pt takes norco PRN for pain GERD! Pt failed zantac and pepcid pt has GERd daily without omeprazole. Pt needs refills DM Pt has DM P take s amaryl 4 mg bid Pt denies any hypoglycemia P states that Bg is around 170s Pt denies any polyuria, polydipsia. foot pain1 Pt just seen pod iatry and she already did MRi of right foot and she has podiatry next sunday. Pt denies any worsening pain anxiety1 Pt has anxiety a nd depression Pt takes zoloft and xanax PRN and doing ok pt denies any suicidal or homicidal thought chronic pain1 Pt has chronic l ow back pain pt denies any worsening miriam Pt denies any loss of bladder control pt failed NSAID and ultram. Pt takes norco PRN for pain dM Pt has DM Pt den ies any polyuria, polydipsia Pt takes amaryl. Pt could not tolerate metformin Pt does not want insulin Pt has hard time being referred to endo due to her insurance. Pt denies any polyuria, polydipsia anxiety1 Pt has anxiety a nd depression Pt takes zoloft and xanax PRN and doing ok pt denies any suicidal or homicidal thought chronic pain Pt has chronic l ow back pain pt denies any worsening miriam Pt denies any loss of bladder control pt failed NSAID and ultram foot pain1 Pt notices tende r swelling area right lateral foot for 2 weeks pt denies any injury Pt denies any drainage pt feels pain when she put weight on the foot, Pt denies any insect bite Pt denies any numbness pain1 Pt has chronic l ow back pain due to DDD pt denies any worsening pain, pt denies any loss of bladder control. Pt failed NSAID and ultram anxiety1 Pt has chronic a nxiety and depression Pt takes zoloft and xanax PRn and doing ok. pt denies any suicidal or homicidal thought GERD1 Pt has chronic G ERD. Pt had benign EGD. Pt denies any abd pain Pt failed zantac and pepcid Pt has daily GERD without omeprazole DM Patient states t hat her sugars are around 130 at home. Patient takes glimepiride. Patient denies any hypoglycemia. Patient states that the [facility] endocrinology does not take her insurance when she called. Patient does not want to go to [place] to see tea blender. DM Pt takes amaryl and her BG is around 150s. Pt did not do lab yet. Pt has yazan with endo 05/27 and nephrology on 05/30/19 back apin1 Pt has chronic l ow back pain due to DDD pt denies any worsening pain, pt denies any loss of bladder control. Pt failed NSAID and ultram anxiety1 Pt has chronic a nxiety and depression Pt takes zoloft and xanax PRn and doing ok. pt denies any suicidal or homicidal thought back pain1 Pt has chronic l ow back pain due to DDD pt denies any worsening pain, pt denies any loss of bladder control anxiety1 Pt has chronic a nxiety and depression Pt takes zoloft and xanax PRn and doing ok. pt denies any suicidal or homicidal thought DM Pt states that s he does not know anything about dm doctor. Pt is very confused Pt states that her BG is around 130s now. Pt denies any polyuria, polydipsia. Pt only takes amaryl currently hematuria1 Pt denies any UT I symptoms. Pt had benign CT urogram. Pt also had negative cystoscopy per pt from urology last month Pt denies any flank pain HLP Pt takes zocor. Pt denies any myalgia. her lipid profile is ok GERD1 Pt has daily JESENIA D without omeprazole Pt failed zantac DM Pt has poorly co ntrolled DM Pt is noncompliant Pt is NOT taking basaglar or metformin Pt is only on amaryl now. Pt states that she has been diet and exercising and her bg is around 140s Pt denies any polyuria, polydipsia hematuria1 Pt denies any UT I symptoms pt told me she has not heard from urology either. anxiety1 Pt has chronic a nxiety and depression Pt takes zoloft and xanax PRn and doing ok pt denies any suicidal or homicidal thought chronic pain1 Pt has chronic l ow back pain with mild sciatica and leg numbness pt takes neurontin and norco for pain Pt failed NSAID and ultram, Pt denies any loss of bladder control chronic pain Pt has chronic l ow back pain Pt denies any worsening pain pt denies any loss or bladder control. Pt failed NSAID and ultram anxiety1 Pt has anxiety a nd depression Pt takes zoloft and xanax PRN and doing ok. pt denies any suicidal or homicidal thought DM Pt states that h er BG is over 200 frequently. Pt denies any polyuria, polydipsia. Pt is on amaryl only. Her insurance does not cover januvia, trajenta or onglyza. Pt states that her BG was 240 this morning. Pt had some diarrhea with metformin in the past fatty liver Pt has fatty boyd er. Pt denies any abd pain. Pt denies any jaundice DM Pt has DM. her g lucose is over 300. pt takes amaryl 2 mg once per day. Pt does have polyuria, polydipsia. Pt could not tolerate metformin. Pt denies any vision change hematuria1 Pt has hematuria . Pt has persistent low pelvic pressure Pt took macrobid but did not help. Pt denies any burning Pt feels frequency and urgency. Pt has hematuria. Pt just finished Macrobid but did not work. Pt has history of intermittent hematuria. pt denies any flank pain HLP Pt has mildly hi gh TG Pt is on zocor. Pt denies any myalgia urinary frequency1 Pt notices mi ld dysuria, and urinary urgency and frequency for 3 days. Pt denies any flank pain ,Pt denies any polyuria. Pt denies any fever, chill chronic pain1 Patient has gas engineer livan low back pain. Patient complained of mild sciatica with leg numbness and tingling. Patient denies any loss of bowel bladder control. Patient failed NSAID and tramadol. Patient has 6 out of 10 pain daily. Patient complained of sharp pain. Patient denies any worsening pain. Pt has DDD anxiety1 Patient has gas engineer livan anxiety and depression. Patient denies any suicidal homicidal thoughts. Patient denies any crying spells. Patient takes zoloft and Xanax and doing okay. Patient noticed more motivation. Patient denies any hopelessness. Physical Pt needs annual physical. Pt has DM. Pt takes amaryl daily. Pt could not tolerate metformin. Pt states that her BG is around 150s or less. Pt denies any polyuria polydipsia Pt denies any hypoglycemia. Pt has chronic insomnia .Pt does not have sleep apnea Pt takes trazodone and doing ok. Pt denies any snoring Pt has HTn .Pt takes lisinopril. Pt has proteinuria. Pt has borderline creatine .Pt is seeing nephrology. Pt has chronic low back pain. Pt has DDD pt has mild sciatica and leg numbness. Pt denies any loss of bladder control. Pt failed NSAID and ultram. Pt takes norco and neurontin for pain and doing ok Pt has 7/10 pain daily. Pt has chronic GERD pt failed zantac. Pt takes omeprazole daily and doing ok. Pt denies any nausea HTN Patient has hype rtension. Patient takes lisinopril. Patient needs refill. Her BP stable. anxiety1 Patient has gas engineer livan anxiety and depression. Patient denies any suicidal homicidal thoughts. Patient denies any crying spells. Patient takes zoloft and Xanax and doing okay. Patient noticed more motivation. Patient denies any hopelessness. GERD1 Pt doing ok with omeprazole. pt failed zantac. Pt has daily GERD without omeprazole DM Her BG is around 130s currently on amaryl Pt denies any polyuria, polydipsia or hypoglycemia insomnia1 pt has insomnia pt takes trazodone and doing ok. Pt needs refills. pt does not have sleep apnea Chronic pain Patient has gas engineer livan low back pain. Patient complained of mild sciatica with leg numbness and tingling. Patient denies any loss of bowel bladder control. Patient failed NSAID and tramadol. Patient has 6 out of 10 pain daily. Patient complained of sharp pain. Patient denies any worsening pain. GERD1 Pt has been havi ng severe GERD symptoms without omeprazole. Pt has not taken omeprazole for several months but her GERD symptoms is daily and rather severe. pt denies any abdominal pain Pt denies any nausea, vomiting. Pt denies any diarrhea pt tried zantac but not working. Pt states that she has acidy feeling from her stomach to her throat all day and all night DM Patient is enid osei Amaryl 2 mg daily now. Patient states that her sugars is around 110-120s Patient denies any hypoglycemia. Patient denies any polyuria polydipsia. chronic pain1 Pt has chronic n flo and back pain due to DDD Pt denies any worsening pain Pt denies any loss of bladder control. Pt failed NSAID and ultram. Pt has 6/10 pain anxiety1 Pt has chronic a nxiety and depression. Pt denies any suicidal or homicidal thought. pt denies any crying spells. Pt takes zoloft and xanax PRn and doing ok lung Patient has more than [id number] history of smoking. Patient still smoking. Her lung CT is normal. Patient denies any shortness of breath. proteinuria1 Pt needs to f/u with nephrology DM Pt has DM. pt ta kes amaryl 1 mg daily. Her BG is high and her A1c is worse. pt could not tolerate metformin. Pt denies any polyuria, polydipsia LFT1 Pt has fatty boyd er. PT does NOT have hepatitis. Pt denies any abd pain HLP Pt is on zocor 4 0 mg daily. Her lipid profile is high. Pt denies any myalgia. pt has been noncompliant with zocor. Pt takes it on and off hematuria1 Pt is s/p negati ve cysto recently by urology. Pt sees urology for chronic hematuria HTn Pt has HTN. Pt t akes lisinopril and her BP is stable. Pt needs refills DM Pt has DM. Pt ta kes amaryl. pt unable to tolerate metformin due to diarrhea. her BG is around 110 Pt denies any polyuria, polydipsia. Pt denies any hypoglycemia anxiety1 Pt has chronic a nxiety and depression Pt takes zoloft and xanax PRn and doing ok pt denies any suicidal or homicidal thought. Pt denies any crying spells foot pain1 The symptoms occ ur constantly. 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 Pt denies any worsening pain HLP1 pt has not been taking zocor for several months Pt told me nancy does not have it and she has been out. Pt back pain1 Pt has chronic l ow back pain. Pt denies any worsening pain ,Pt denies any loss of bl adder control. Pt has 7/10 pain. Pt failed NSAID and ultram anxiety1 Pt has chronic a nxiety and depression. Pt takes zoloft and xanax PRn and doing ok. pt denies any suicidal or homicidal thought Pt denies any crying spells chronic pain Pt has chronic l ow back pain. Pt denies any worsening pain. pt denies any loss of bladder control Pt failed ultram and NSAID HLP Pt has HLP Pt ta kenano zocor. Pt denies any myalgia, Pt is on low fat diet foot pain1 Pt notices small tender nodule dorsal right foot for several weeks. Pt denies any foot injury. Pt denies any numbness or tingling anxiety1 Pt has chronic a nxiety and depression. Pt takes zoloft and xanax PRn and doing ok Pt denies any suicidal or homicidal thought. Pt denies any crying spells chronic pian1 Pt has chronic n flo and back pain Pt denies any worsening pain Pt denies any loss of bladder control.. Pt failed NSIAD and ultram Pt takes norco PRn for pain an dding ok GERD1 Pt has chronic G ERD. Pt had benign EGD. Pt states that she could not tolerate GERD without omeprazole. Pt also failed zantac. Pt needs omeprazole refilled. lung CT Pt still has not done lung CT and it is now pass the date of the approval HLP pt has HLP. Pt t twinsanjuana zocor Pt denies any myalgia chronic pain1 Pt has chronic n flo and back pain Pt denies any worsening pain pt denies any loss of bladder control. Pt failed NSAID and ultram. Pt doing ok with norco. Pt has 7/10 pain DM Pt has DM. pt ta surys amaryl. Pt states that she does not check her BG. Pt denies any hypoglycemia. HTN Pt has HTn. Pt t mariela lisinopril and her BP is STABLE. Pt denies any chest pain or headache chronic pain1 Pt has chornic l ow back pain. Pt has DDD Pt has 7/10 pain. Pt takes norco PRn for pain and doing ok anxity1 Pt has chronic a nxiety and depression pt takes zoloft and xanax PRn and doing ok. Pt denies any suicidal or homicidal thought chronic pain1 Pt has chronic l ow back pain, pt denies any worsening pain. Pt denies any loss of bladder control. Pt has 7/10 pain anxiety1 Pt has chronic a nxiety and depression. Pt takes zoloft and xanax PRN and doing ok. Pt denies any suicidal or homicidal thought. DM Pt has DM. Pt ta kes amaryl 1 mg daily. Her BG is around 120s. Pt denies any polyuria, polydipsia. Pt denies any hypoglycemia lung CA Pt needs LDCT fo r lung CA screening. vaginal itching1 Pt c/o vaginal itching and burning for several weeks. Pt tried flagyl and diflucan and did not help. Pt feels burning with urination. Pt start to notice some white foul smelling discharge. Pt denies any vaginal blisters or pain. Pt has not had sex for 3 years. Pt denies any pelvic pain. Pt denies any flank pain .Pt denies any fever. chronic pain1 Pt has chronic l ow back pain Pt deneis any worsening pain. pt denies any loss of bladder control. Pt has 7/10p ain anxiety1 Pt has chronic a nxiety and depression. Pt takes zoloft and xanax PRN. Pt deneis any suicidal or homicidal thought. Pt deneis any crying spells. viginal dischage1 PT c/o vaginal discharge for several days with itching and also irritation. Pt stastes that discharge is white and odous. Pt has not been sexually active for several years. Pt denies any pelvic pain PHysical Pt needs annual physical. pt has chronic anxiety and depression Pt takes zoloft and xanax PRn and doing ok. pt denies any suicidal or homicdial thought. Pt has borderine DM. Pt states that her BG is around 120s. Pt denies any hypoglycemia. Pt has GERD. Pt takes omeprazole. Pt has DM. Pt takesamaryl only. , Pt has insomnia pt takes traozone. Pt has chronic low back apin pt denies any other complaints insomnia1 Pt has insomnia Pt does not have sleep apnea. Pt doing ok with trazodone. pt needs refill DM Pt has DM. pt ta kes amaryl. Pt denies any hypoglycemia Pt has not been checking her BG chronic pain1 Pt has chronic l ow back pain. Pt denies any worsening miriam Pt denies any loss of bladder control. Pt has 6/10 pain anxiety1 Pt has chronic a nxiety and depression. Pt takes zoloft and xanax PRn and doing ok Pt denies any suicidal or homicidal thought. Ptp denies any cyring spells HLP Pt has HLP. Pt t akes zocor. Her lipid profile is normal Pt denies any myalgia dm Pt has DM Pt breanne ble to tolerate metfomrin Pt has severe diarrhea with it. her glucose and A1c is getting worse. Pt denies any polyuria, polydipsia back pain1 Pt has chronic l ow back pain Pt deneis any loss of bladder control. Pt takes norco PRN for pain anxiety1 Pt takes zoloft and xanax PRN pt doing ok Pt denies any suicidal or homicdial thought anxiety1 Pt has chronic a nxiety and depression Pt takes zoloft and xanax PRn and doing ok, Pt denies any suicidal or homicidal thought back pain1 Pt has chronic l ow back pain Pt denies any loss of bladder control. Pt denies any worsening pain Pt denies any scaitica. Pt takes norco PRN for pain. Pt failed NSAID GERD1 Pt has chronic G ERd Pt had benign EGD Pt states that she does not have any GERD symptoms while on omeprzole. Pt failed zanatc. Pt has daily GERD without omeprazole cough1 Pt c/o sneezing, coughing up clear phlegm, sinus, sore throat for one week. Pt denies any fever, Pt feels slighlty better today. Pt denies any sick contact. Pt denies any recent travel back pain1 Pt has chronic l ow back pain. Pt denies any worsening pair or loss of bowel or bladder control. Pt failed NSAID and PT breast nodule1 Pt has right wilver ast density on mammogram Pt denies any breast nodule or pain. HTN Pt has HTN. Pt h as not been taking benicar and she is still on lisinpril. Her BP is ok. Pt denies any chest pain or headache anxiety1 Pt has chronic a nxiety and depression Pt takes zoloft and xanax and doing ok. Pt denies any suicidal or homicidal thought. Pt denies any cyring spells anxiety1 pt has chronic a nxiety and depression. Pt takes zoloft and xanax PRN Pt doing ok. Pt denies any suicidal or homicidal thought. Pt denies any cyring spells mammo Pt denies any br eas issue. Pt needs annual mammo screening. HTN Pt has HTN. Pt t akes lisinopril and her BP is high sometimes Pt denies any jordy apin or headache. Pt does not check her BP at home back pain1 Pt has chronic l ow back. pain. Pt denies any worsening pain Pt denies any loss of bladder control. Pt takes norco PRN for pain. anxiety1 Pt has chronic a nxiety and depression Pt takes zoloft an xanax and dogni ok pt denies any suicidal or homicidal thought GERD1 Pt has GERD. pt takes omerpzole. pt failed zantac. Pt denies any abd pain or GERD back pain1 Pt has chronic l ow back pain. Pt denies any worsening pain. Pt denies any loss of bladder control. Pt notices mild leg numbness. HLP Pt has HLP. pt t aksanjuana zocor. Pt denies any myalgia pt has not done lab yet COPD Pt has COPD. Pt still smoking Pt denies any sob. Pt does not want to quit smoking obesity1 Pt is obese. Pt does not want bariatric surgery Pt is too tired to work out. back pain1 Pt has chronic l ow back pain. Pt denies any worsening pain. Pt denies any loss of bladder control, Pt has 7/10 pain anxiety1 Pt has chronic a nxiety and depression Pt takex zoloft and xnax and doing ok Pt denies any suicidal or homicidal thought. Pt denies any cyring spells insmonia1 Pt has insomnia. Pt does not have sleep apnea. Pt takes trazodone and doing ok Pt denies any fatigue hTN1 Pt has HTN. Pt t akes lisinpril and her BP is ok Pt denies any chest pain or headache. anxiety1 Pt has chronic a nxiety and depression Pt takes zoloft adn xanax and doing ok Pt denies any suicidal or homicidal thought back pain1 Pt has chronic l ow back and neck pain Pt denies any worsening pain pt june any loss of bladder control HLP Pt takes zocor. Pt denies any mylgia pt has been eating better DM1 Pt has borderlin e DM. Pt has not been checking her glucose Pt also is not taking metformin Pt states that she only takes occassionally Pt denies any polyuria, polydipsia Pt denies any neuorpathy symptoms anxiety1 Pt has chronic a nxiety and depression. Pt takes zoloft and xanax and doign ok. Pt denies any suicidal or homicidal thought Pt denies any cyring spells chronic pain1 Pt has chronic l ow back pain Pt denies any worsening pain. pt denies any loss of bladder control. Pt takes norco PRN for pain and doing ok GERD1 Pt takes omerpzo le daily Pt has GERD Pt denies any abd pain. Pt statse that 20 mg omeprazole does not seem to help anymore and she still has been having GERD symptoms daily Pt denies any nausea, vomiting anxiety1 Pt has chronic a nxiety and depression Pt takes zoloft and xanax and doing ok. Pt denies any suicidal or homicidal thought back pain1 Pt has chronic l ow back pain. Pt denies any worsening pain Pt has 7/10 pain Pt denies any loss of bladder control. Pt c/o sciatica. and leg numbness HLP Pt takes zocor. Pt denies any myalgia. Pt is trying low fat and low carb diet obesity1 Pt is obese. Pt refuse weight loss surgery Pt is using true vision which is OTC pill for weight loss. pt lose several pounds. Pt denies anychest pain or sob rrenal disease1 Pt has high GFR and she is obese Pt still has not made appointment to see Dr. Vieira yet anxiety1 Pt has chronic a nxiety and depression. Pt takes zoloft and xaanax and doign ok. pt denies any suicidal or homicidal thought back pain1 Pt has chronic l ow back pain. pt c/o mild sciatica Pt is obese Pt denies any worsenign pain obeisty1 Her BMI is 42. P t went to weight loss seminar and she decides against any procedure. Pt states that she is going to do the weight loss on her own with diet and exercise back pain1 Pt has chornic l ow back pian pt denies any worsening pain pt has 7/10 pain Pt deneis any loss of bowel or bladder control. Pt denies any leg numbness. Pt takes neurontin also which helps her pain anxiety1 Pt has chronic a nxiety and depression. Pt takes zoloft and xanax. Pt denies any suicidal or homicidal thought GERD1 Pt has GERD Pt h ad benign EGD Pt takes omeprazole and doing ok Pt denies any abd pain PHysical Pt needs annual physical. Pt has mulitple very compliacted medical history. Pt has chornic anxiety and depresssion and she takes zoloft and xanax and also she takes norco for chronic low back pain. pt denies any loss of bowel or bladder control. Pt has metabolic syndrome and she takes metformin. Pt has chronic GERD and she takes omeprzole and doing ok. Pt also has HTN and she takes lisinopril.. Pt c/o mild itchy rash on right axilla area without any hair for 4 weeks. Pt states that her axilla has hair without itching. Pt denies any axillary lymph. Pt also is morbidly obese. Pt wants to try weight loss surgery. Pt denies any other complaints chornic pain Pt has chronic n flo and back apin. Pt denies any worsenign pain Pt denies any loss ofb owel or bladder control anxiety1 Pt has chornic a nxiety and depression Pt takes zoloft and axnax and donig ok. Pt denies any suicidal or homicidal thought Pt denies any crying spells tobacco1 Pt has at least 30 pack year history of tobacco use Pt denies any chest pain or SOB insomnia1 Pt has chronic i nsomnia. Pt takes trazodone and doing ok. Pt denies any insomnia. Pt does not have sleep apnea chronic pain1 Pt has chornic l ow back pain. Pt denies any loss of bowel or bladder control. Pt denies any worsening pain GERD1 Pt has chornic G ERD. Pt takes omeprazole and doing ok. Pt denies aniy GERD symptoms anxiety1 Pt has chronic a nxizety and depression. Pt takes zoloft and xanax and doing ok. Pt denies any suicial or homicidal thought anxiety1 Pt has chronic a nxiety and depression. pt has been having more depressive symptoms lately and also anxiety. her daughter and grandchildren is living with her now and she is extremely stressed out and anxious. Pt run out of xanax last month. Pt denies any depression or any suicidal thought. chornic pain Pt has chronic n flo and back pain. Pt deneis any loss of bowel or bladder control. Pt denies any worsening pain. Pt unable to tolerate NSAID. Pt takes norco for pain PRN HTN Pt has hTN. Pt t akes lisinopril and her BP is ok. pt denies any chest pain or headache DM Pt has borderlin e diabete. Pt takes metformin daily. Pt checks her BG once a while but she does not rememeber any numnbers. Pt denies any polyuria, polydipsia chronic pain1 Pt has chronic n flo and back apin. Pt denies any wrosening pain Pt has 6/1o pain. Pt takes norco PRN for pain and doing ok. Pt denies any sciatica or any loss of bowel or bladder control anxiety1 Pt has anxiety a nd depression. Pt takes zoloft and xanax and doing ok. Pt denies any suicidal or homicidal thought DM Pt has borderlin e diabete. Pt is noncompliant with metformin Pt only takes PRN?? Pt denies any numnbess, no polyuria, polydipsia LFT Pt has fatty boyd er No hepatitis chronic Pt has chronic l ow back and neck pain. Pt denies any worsening pain. Pt takes norco for pain PRN. Pt denies any worsening miriam. Pt also takes zoloft and xanax for anxiety and depression and doing ok. Pt denies any suicidal or homciaal thought GERD1 Pt takes omeprzo le and she does not have any GERD symptoms anxiety1 Pt has chronic a nxiety and depression. Pt takes zoloft and xana and doing ok Pt denies any suicidal or homicidal thought predM Pt takse metform in and doing ok. Pt denies any GI issue. Pt is on low sweet diet HLP Pt takes zocor. Pt denies any myalgia. Pt is on low fat and low carb diet back pain1 Pt has chronic l ow back pain Pt denies any worseing pain Pt denies any loss of bowel or bladder control chronic pain Pt has chronic n flo and back apin. Pt takes norco for pain Pt failed NSAID Pt denises any worsening miriam anxiety1 Pt has chronic a nxiety and depression. Pt takes zoloft and xanax and doing ok Pt denies any suicidal or homcidial thought HLP Pt takes zocor f or HLP. Pt denies any myalgia. Pt is on low fat and low carb diet chornic pain Pt has chronic n flo and back pain. Pt denies any wrosening pain. Pt denies any loss of bowel or bladder control. Pt failed NSAID GERD1 Pt has GERD Pt t akes omeprazole and her symptoms are well controlled. Pt no longer takes zantac. Pt denies any abd pain anxiety1 pt has chronic a nxiety and depression. Pt denies anyany suicidal thought. Pt takes xanax PRN and doing ok. Pt denies any crying spells anxiety1 Pt has chronic a nxiety and depression. Pt takes zoloft and xanax and doing ok. Pt denies any suicidal or homicdial thought chronic pain1 Pt has chornic n flo and back apin. Pt takes norco for pain. Pt denies any worsening pain. Pt denies any loss of bowel or bladder control chronic pain Pt has chronic n flo and back pain. Pt denies any worsening pain Pt denies any loss of bowel or bladder control anxiety1 Pt has chronic a nxiety and depression. Pt takes zoloft and xanax and doing ok Pt denie any suicidal thought or homicidal thought GERD1 PT has GERD and burning feeling around stomach for several weeks. Pt states that she has not had any burning since taking omeprazole. Pt denies any nauea, vomiting. chronic pain Pt has chronic n flo and back pain. Pt denies any worsening pain. pt denies any worsening apin. Pt takes norco for pain and doing ok anxiety1 Pt has chronic a nxiety and depression. Pt takes zoloft and xanax. Pt denies any suicidal or homicidal thought. Pt denies any feeling of hopelessness HLP Pt has been taki ng zocor. Pt denies any myalgia. Pt is trying low fat and low carb diet chronic pain Pt has chronic n flo and back pain. Pt denies any loss of bowel or bladder control. Pt had MRI of neck done which showed mild DDD Pt denies any sciatica or any numbness. anxiety1 Pt has chronic a nxiety and depression. Pt takes zoloft and xanax. Pt denies any suicidal or homicidal thought. Pt denies any crying spells preDM Pt takes metform in. Pt is trying low carb and low sweet diet. P tdenie sany polyuria, polydipsia stomach burning Pt notices burni ng around stomach area for 4 weeks. Pt feels burpy. Pt denies any abd pain. Pt is on zantac but not helping. No particular food makes it worse. Pt states that her stomach feels on fire sometimes anxietiy1 Pt has chronic a nxiety and depression. Pt takes zoloft and xanax. Pt denies any suicidal or homicidal thought. Pt denies any crying spells. fatty liver1 Pt has fatty boyd er. Pt does not have hepatitis. Pt denies any abd pain. Pt is morbidly obese. insomnia1 Pt has chronic i nsomnia. Pt snores and she has morning fatigue. Pt just had sleep study done which failed to show sleep apnea. Pt does have low sleep efficiency due to snoring frequent arosuals. chronic pain Pt has chronic n flo and back pain. Pt has not done MRI of neck yet. Pt has spondylosis around Lspine Pt takes norco for pain. Pt failed NSAID insomnia1 Pt has insomnia pt statse that she snores and she has difficulty falling asleep sometimes. Pt takes trazodone and doing ok. Pt snores and sometimes stop breathing at night. Pt denies any morning fatigue chronic pain1 Pt has chronic n flo and low backp ain. Pt denies any sciatica. Pt c/o bilateral radiculopathy and some arm numnbess. Pt staes that her neck pain has been getting worse. anxiety1 Pt has chronic a nxiety and depression. Pt takes zoloft and xanax and doing ok. Pt denies any suicidal or homicidal thought. Pt denies any crying spells. chronic pain1 Pt has chronic n flo and back pain Pt denies any loss of bowel or bladder control. Pt denies any worsening pain. Pt has some sciatica and numnbess both legs. anxiety1 Pt has chronic a nxiety and depression. Pt takes zoloft and xanax. Pt denies any suicidal or homicidal thought Pt denies any crying spells insuline resistance Pt has mild insuline resistance. Pt takes metformin. Pt does not check her BG. Pt denies any polyuria, polydipsia chronic pain Pt has chronic n flo and back pain. Pt deneis any worsening miriam. Pt denies any radiculopathy. Pt c/o mild sciatica Pt denies any numbness GERD1 Pt has GERD. Pt takes zantac and doing ok. Pt denies any abd pain or GERD symptoms anxiety1 Pt has chronic a nxiety and depression. Pt takes zoloft and xanax. Pt denies any suicidal thought. Pt denies any feeling of hopelessness. Pt denies any crying spells back pain1 Pt has chronic n flo and back pain. Pt denies any worsenign pain. Pt denies any loss of bowel or bladder control. Anxeity1 Pt has chronic a nxiety and depression Pt taeks zoloft adn xanax. Pt denies any sucidal thought. Pt denies any crying spells. Pt denies any feeling of hopelessness. HTN1 Pt takes lisinop ril for HTN. Her BP is well controlled LFT1 Pt has mild elev ated LFT on recent lab. Pt has fatty liver. Pt denies any history of hepatitis PreDM Her A1c is 6.2, Pt has metabolic syndrome. Pt states that metformin causing her to have diarrhea and stoamch cramp. Pt does not take it daily GERD Associated sympt oms include back pain and heartburn. Pertinent negatives include constipation, diarrhea, dyspnea, fever, hematuria, nausea, rash, vaginal discharge, vomiting, weight gain and weight loss.Additional information:Pt has gERD and doing ok with zantac. Pt denies any abd miriam or GErD symptoms. Anxeity Pt has chronic a nxiety and depression. Pt takes zoloft and xanax Pt denies any suicidal thought back pain Additional infor mation: Pt has chornic neck and back pain. Pt takes lonny meds and doing ok. Pt denies any worsening miriam. gERD Additional infor mation:Pt has been taking protonix for a while. Pt denies any GERD symptmios or abd pain. EGD really rather benign. Anxeity Pt has chronic a nxiety and depression. Pt takes zoloft and xanax. Pt denies any suicidal thought chronic pain Pt has chronic n flo and back apin and neuropathy symptmos Pt takes norco and neurontin. Pt has nonspecific numbness around shoulder area. Pt denies any worsening pain. Pt denies any loss of bowel or bladder control hematuria Pt denies any UT I symptoms PreDM Pt is prediabeti c. Pt takes metformin. Pt states that her BG is around [address] showed some t hickening of cystic wall. Pt denies any UTI symptoms sick Pt c/o sinus con gestion, coughing up yellow phlem for one week. No fever, chill, chest pain or SOB chronic miriam Pt has chronic n flo and back pain. pt denies any worsening pain anxiety The patient pres ents with anxious/fearful thoughts but denies fatigue. The patient denies any nausea, urinary frequency, vomiting and weight gain. Additional information: Pt has chronic anxiety and depression. Pt atkes zoloft and xanax. Pt denies any suicidal thought. anxiety Additional infor mation: Pt has chronic anxiety and depression. Pt takes zoloft and xanax. Pt denies any suicidal thought. hematuria Pt recently went to ER for left flank pain. Pt had CT scan which was normal per patient. Pt was told she has hematuria. Pt states that left flank pain better chornic pain Pt has chronic n flo and back pain. pt denies any loss of bowel ro bladder cotnrol back pain Additional infor mation: Pt has chronic LBP. pt has some left flank pain. MRI showed bulging disc. UA showed UTI. Pt denies any UIT symptoms. chornic pain Pt has chornic n flo and back apin. Pt denies any worsening pain Anxiety Additional infor mation: Pt has chornic anxiety and deprssion. Pt takes zoloft and xanax and doing ok. Pt denies any suicidalt [place]. Instructions Date Instruction Additional Infor mation Special diet education Related t o Body mass index (BMI) 40.0-44.9, adult Quit smoking Related to Gener alized Anxiety Disorder Weight management Related to Gen eralized Anxiety Disorder Special diet education Related t o Body mass index (BMI) 40.0-44.9, adult Increase physical activity Relat ed to Chronic pain syndrome Quit smoking Related to Chron ic pain syndrome Weight management Related to Chr onic pain syndrome Quit smoking Related to Chron ic pain syndrome Weight management Related to Chr onic pain syndrome Special diet education Related t o Body mass index (BMI) 40.0-44.9, adult Increase physical activity Relat ed to Chronic pain syndrome Special diet education Related t o Body mass index (BMI) 40.0-44.9, adult Increase physical activity Relat ed to Type 2 diabetes mellitus with diabetic neuropathy Quit smoking Related to Type 2 diabetes mellitus with diabetic neuropathy Weight management Related to Typ e 2 diabetes mellitus with diabetic neuropathy Special diet education Related t o Body mass index (BMI) 40.0-44.9, adult Increase physical activity Relat ed to Chronic pain syndrome Quit smoking Related to Chron ic pain syndrome Weight management Related to Chr onic pain syndrome Special diet education Related t o Body mass index (BMI) 40.0-44.9, adult Special diet education Related t o Body mass index (BMI) 40.0-44.9, adult Check blood sugar twice a day. R elated to Type 2 diabetes mellitus with diabetic neuropathy Increase physical activity. Rela mallory to Type 2 diabetes mellitus with diabetic neuropathy Special diet education Related t o Body mass index (BMI) 40.0-44.9, adult Check blood sugar twice a day. R elated to Type 2 diabetes mellitus without complications Stop smoking. Related to Type 2 diabetes mellitus without complications Special diet education Related t o Body mass index (BMI) 40.0-44.9, adult Check blood sugar twice a day. R elated to Type 2 diabetes mellitus with diabetic nephropathy Special diet education Related t o Body mass index (BMI) 40.0-44.9, adult Increase physical activity Relat ed to Urinary tract infection Quit smoking Related to Urina ry tract infection Weight management Related to Uri nary tract infection Special diet education Related t o Body mass index (BMI) 40.0-44.9, adult Special diet education Related t o Body mass index (BMI) 40.0-44.9, adult Increase physical activity Relat ed to Encounter for general adult medical exam w abnormal findings Weight management Related to Enc ounter for general adult medical exam w abnormal findings Special diet education Related t o Body mass index (BMI) 40.0-44.9, adult Check blood sugar twice a day. R elated to Type 2 diabetes mellitus with diabetic nephropathy Increase physical activity. Rela mallory to Type 2 diabetes mellitus with diabetic nephropathy Stop smoking. Related to Type 2 diabetes mellitus with diabetic nephropathy Quit smoking Related to Type 2 diabetes mellitus with diabetic nephropathy Special diet education Related t o Body mass index (BMI) 40.0-44.9, adult Avoid provocative fo ods: citrus, alcohol, coffee, chocolate, mints. Related to GERD w/o esophagitis Eat smaller meals, n o eating three hours prior to bedtime. Related to GERD w/o esophagitis Elevate head of bed prior to sle ep. Related to GERD w/o esophagitis Increase physical activity Relat ed to Generalized Anxiety Disorder Quit smoking Related to Gener alized Anxiety Disorder Weight management Related to Gen eralized Anxiety Disorder Special diet education Related t o Body mass index (BMI) 40.0-44.9, adult Special diet education Related t o Body mass index (BMI) 40.0-44.9, adult Check blood sugar twice a day. R elated to Type 2 diabetes mellitus with diabetic nephropathy Increase physical activity. Rela mallory to Type 2 diabetes mellitus with diabetic nephropathy Special diet education Related t o Body mass index (BMI) 40.0-44.9, adult Increase physical activity Relat ed to Chronic pain syndrome Quit smoking Related to Chron ic pain syndrome Weight management Related to Chr onic pain syndrome Special diet education Related t o Body mass index (BMI) 40.0-44.9, adult Increase physical activity Relat ed to Chronic pain syndrome Quit smoking Related to Chron ic pain syndrome Weight management Related to Chr onic pain syndrome Prescribed dietary intake Relate d to Body mass index (BMI) 39.0-39.9, adult Increase physical activity Relat ed to Chronic pain syndrome Quit smoking Related to Chron ic pain syndrome Weight management Related to Chr onic pain syndrome Special diet education Related t o Body mass index (BMI) 38.0-38.9, adult Increase activity. Related to Es sential (primary) hypertension Stop smoking. Related to Essen tial (primary) hypertension Follow a low sodium diet. Relate d to Essential (primary) hypertension Special diet education Related t o Body mass index (BMI) 40.0-44.9, adult Quit smoking Related to Chron ic pain syndrome Special diet education Related t o Body mass index (BMI) 40.0-44.9, adult Quit smoking Related to Gener alized Anxiety Disorder Special diet education Related t o Body mass index (BMI) 40.0-44.9, adult Weight management Related to Acu te vulvovaginitis Prescribed Activity and Exercise Education Related to Dietary Surveillance and Counseling Prescribed Diet Educ ation/Lifestyle Education Regarding Diet Related to Dietary Surveillance and Counseling Quit smoking Related to Chron ic pain syndrome Prescribed Activity and Exercise Education Related to Dietary Surveillance and Counseling Prescribed Diet Educ ation/Lifestyle Education Regarding Diet Related to Dietary Surveillance and Counseling Increase physical activity Relat ed to Encounter for general adult medical exam w abnormal findings Quit smoking Related to Encou nter for general adult medical exam w abnormal findings Weight management Related to Enc ounter for general adult medical exam w abnormal findings Prescribed Activity and Exercise Education Related to Dietary Surveillance and Counseling Prescribed Diet Educ ation/Lifestyle Education Regarding Diet Related to Dietary Surveillance and Counseling Increase physical activity Relat ed to Generalized Anxiety Disorder Quit smoking Related to Gener alized Anxiety Disorder Weight management Related to Gen eralized Anxiety Disorder Prescribed Activity and Exercise Education Related to Dietary Surveillance and Counseling Prescribed Diet Educ ation/Lifestyle Education Regarding Diet Related to Dietary Surveillance and Counseling Quit smoking Related to Gener alized Anxiety Disorder Increase physical activity Relat ed to Generalized Anxiety Disorder Quit smoking Related to Gener alized Anxiety Disorder Weight management Related to Gen eralized Anxiety Disorder Prescribed Activity and Exercise Education Related to Dietary Surveillance and Counseling Prescribed Diet Educ ation/Lifestyle Education Regarding Diet Related to Dietary Surveillance and Counseling Prescribed Activity and Exercise Education Related to Dietary Surveillance and Counseling Prescribed Diet Educ ation/Lifestyle Education Regarding Diet Related to Dietary Surveillance and Counseling Increase physical activity Relat ed to Chronic pain syndrome Quit smoking Related to Chron ic pain syndrome Weight management Related to Chr onic pain syndrome Prescribed Activity and Exercise Education Related to Dietary Surveillance and Counseling Prescribed Diet Educ ation/Lifestyle Education Regarding Diet Related to Dietary Surveillance and Counseling Increase activity. Related to Es sential (primary) hypertension Stop smoking. Related to Essen tial (primary) hypertension Follow a low sodium diet. Relate d to Essential (primary) hypertension Stop smoking. Related to Hyper lipidemia Follow a low sodium diet. Relate d to Hyperlipidemia Prescribed Activity and Exercise Education Related to Dietary Surveillance and Counseling Prescribed Diet Educ ation/Lifestyle Education Regarding Diet Related to Dietary Surveillance and Counseling Increase activity. Related to Hy perlipidemia Prescribed Activity and Exercise Education Related to Dietary Surveillance and Counseling Prescribed Diet Educ ation/Lifestyle Education Regarding Diet Related to Dietary Surveillance and Counseling Increase activity. Related to Es sential (primary) hypertension Stop smoking. Related to Essen tial (primary) hypertension Follow a low sodium diet. Relate d to Essential (primary) hypertension Prescribed Activity and Exercise Education Related to Dietary Surveillance and Counseling Prescribed Diet Educ ation/Lifestyle Education Regarding Diet Related to Dietary Surveillance and Counseling Prescribed Activity and Exercise Education Related to Dietary Surveillance and Counseling Prescribed Diet Educ ation/Lifestyle Education Regarding Diet Related to Dietary Surveillance and Counseling Prescribed Activity and Exercise Education Related to Dietary Surveillance and Counseling Prescribed Diet Educ ation/Lifestyle Education Regarding Diet Related to Dietary Surveillance and Counseling Prescribed Activity and Exercise Education Related to Dietary Surveillance and Counseling Prescribed Diet Educ ation/Lifestyle Education Regarding Diet Related to Dietary Surveillance and Counseling Prescribed Activity and Exercise Education Related to Dietary Surveillance and Counseling Prescribed Diet Educ ation/Lifestyle Education Regarding Diet Related to Dietary Surveillance and Counseling Prescribed Activity and Exercise Education Related to Dietary Surveillance and Counseling Prescribed Diet Educ ation/Lifestyle Education Regarding Diet Related to Dietary Surveillance and Counseling Prescribed Activity and Exercise Education Related to Dietary Surveillance and Counseling Prescribed Diet Educ ation/Lifestyle Education Regarding Diet Related to Dietary Surveillance and Counseling Prescribed Activity and Exercise Education Related to Dietary Surveillance and Counseling Prescribed Diet Educ ation/Lifestyle Education Regarding Diet Related to Dietary Surveillance and Counseling Prescribed Activity and Exercise Education Related to Dietary Surveillance and Counseling Prescribed Diet Educ ation/Lifestyle Education Regarding Diet Related to Dietary Surveillance and Counseling Prescribed Activity and Exercise Education Related to Dietary Surveillance and Counseling Prescribed Diet Educ ation/Lifestyle Education Regarding Diet Related to Dietary Surveillance and Counseling Prescribed Activity and Exercise Education Related to Dietary Surveillance and Counseling Prescribed Diet Educ ation/Lifestyle Education Regarding Diet Related to Dietary Surveillance and Counseling Prescribed Activity and Exercise Education Related to Dietary Surveillance and Counseling Prescribed Diet Educ ation/Lifestyle Education Regarding Diet Related to Dietary Surveillance and Counseling Prescribed Diet Educ ation/Lifestyle Education Regarding Diet Related to Dietary Surveillance and Counseling Prescribed Activity and Exercise Education Related to Dietary Surveillance and Counseling Prescribed Activity and Exercise Education Related to Dietary Surveillance and Counseling Prescribed Diet Educ ation/Lifestyle Education Regarding Diet Related to Dietary Surveillance and Counseling Prescribed Activity and Exercise Education Related to Dietary Surveillance and Counseling Prescribed Diet Educ ation/Lifestyle Education Regarding Diet Related to Dietary Surveillance and Counseling Prescribed Activity and Exercise Education Related to Dietary Surveillance and Counseling Prescribed Diet Educ ation/Lifestyle Education Regarding Diet Related to Dietary Surveillance and Counseling Prescribed Activity and Exercise Education Related to Dietary Surveillance and Counseling Prescribed Diet Educ ation/Lifestyle Education Regarding Diet Related to Dietary Surveillance and Counseling Prescribed Activity and Exercise Education Related to Dietary Surveillance and Counseling Prescribed Diet Educ ation/Lifestyle Education Regarding Diet Related to Dietary Surveillance and Counseling Prescribed Activity and Exercise Education Related to Dietary Surveillance and Counseling Prescribed Diet Educ ation/Lifestyle Education Regarding Diet Related to Dietary Surveillance and Counseling Prescribed Activity and Exercise Education Related to Dietary Surveillance and Counseling Prescribed Diet Educ ation/Lifestyle Education Regarding Diet Related to Dietary Surveillance and Counseling Prescribed Activity and Exercise Education Related to Dietary Surveillance and Counseling Prescribed Diet Educ ation/Lifestyle Education Regarding Diet Related to Dietary Surveillance and Counseling Prescribed Diet Educ ation/Lifestyle Education Regarding Diet Related to Dietary Surveillance and Counseling Prescribed Activity and Exercise Education Related to Dietary Surveillance and Counseling Prescribed Activity and Exercise Education Related to Dietary Surveillance and Counseling Prescribed Diet Educ ation/Lifestyle Education Regarding Diet Related to Dietary Surveillance and Counseling Prescribed Activity and Exercise Education Related to Dietary Surveillance and Counseling Prescribed Diet Educ ation/Lifestyle Education Regarding Diet Related to Dietary Surveillance and Counseling Prescribed Activity and Exercise Education Related to Dietary Surveillance and Counseling Prescribed Diet Educ ation/Lifestyle Education Regarding Diet Related to Dietary Surveillance and Counseling Prescribed activity/ exercise education Related to Dietary surveillance and counseling Special diet education Related t o Dietary surveillance and counseling Decrease caloric intake Related to Dietary surveillance counseling Physical activity counseling Rel ated to Dietary surveillance counseling Decrease caloric intake Related to Dietary surveillance counseling Physical activity counseling Rel ated to Dietary surveillance counseling Physical activity counseling Rel ated to Dietary surveillance counseling Decrease caloric intake Related to Dietary surveillance counseling Decrease caloric intake Related to Dietary surveillance counseling Physical activity counseling Rel ated to Dietary surveillance counseling Physical activity counseling Rel ated to Dietary surveillance counseling Decrease caloric intake Related to Dietary surveillance counseling Decrease caloric intake Related to Dietary surveillance counseling Physical activity counseling Rel ated to Dietary surveillance counseling Dietary counseling Related to Di etary surveillance counseling Decrease caloric intake Related to Dietary surveillance counseling Dietary counseling Related to Di etary surveillance counseling Decrease caloric intake Related to Dietary surveillance counseling Dietary counseling Related to Di etary surveillance counseling Decrease caloric intake Related to Dietary surveillance counseling Dietary counseling Related to Di etary surveillance counseling Decrease caloric intake Related to Dietary surveillance counseling Decrease caloric intake Related to Dietary surveillance counseling Dietary counseling Related to Di etary surveillance counseling Dietary counseling Related to Di etary surveillance counseling Decrease caloric intake Related to Dietary surveillance counseling Dietary counseling Related to Di etary surveillance counseling Decrease caloric intake Related to Dietary surveillance counseling Dietary counseling Related to Di etary surveillance counseling Decrease caloric intake Related to Dietary surveillance counseling Dietary counseling Related to Di etary surveillance counseling Decrease caloric intake Related to Dietary surveillance counseling Dietary counseling Related to Di etary surveillance counseling Dietary counseling Related to Di etary surveillance counseling Decrease caloric intake Related to Dietary surveillance counseling Dietary counseling Related to Di etary surveillance counseling Decrease caloric intake Related to Dietary surveillance counseling Decrease caloric intake Related to Dietary surveillance counseling Dietary counseling Related to Di etary surveillance counseling Dietary counseling Related to Di etary surveillance counseling Decrease caloric intake Related to Dietary surveillance counseling Dietary counseling Related to Di etary surveillance counseling Decrease caloric intake Related to Dietary surveillance counseling Dietary counseling Related to Di etary surveillance counseling Decrease caloric intake Related to Dietary surveillance counseling Dietary counseling Related to Di etary surveillance counseling Decrease caloric intake Related to Dietary surveillance counseling Dietary counseling Related to Di etary surveillance counseling Decrease caloric intake Related to Dietary surveillance counseling Dietary counseling Related to Di etary surveillance counseling Decrease caloric intake Related to Dietary surveillance counseling Dietary counseling Related to Di etary surveillance counseling Decrease caloric intake Related to Dietary surveillance counseling Decrease caloric intake Related to Dietary surveillance counseling Dietary counseling Related to Di etary surveillance counseling Dietary counseling Related to Di etary surveillance counseling Decrease caloric intake Related to Dietary surveillance counseling Dietary counseling Related to Di etary surveillance counseling Decrease caloric intake Related to Dietary surveillance counseling Decrease caloric intake Related to Dietary surveillance counseling Dietary counseling Related to Di etary surveillance counseling Dietary counseling Related to Di etary surveillance counseling Decrease caloric intake Related to Dietary surveillance counseling Dietary counseling Related to Di etary surveillance counseling Decrease caloric intake Related to Dietary surveillance counseling Dietary counseling Related to Di etary surveillance counseling Decrease caloric intake Related to Dietary surveillance counseling Assessments Type Assessment Date assessment Chronic pain syndrome assessment Generalized Anxiety Disorder Apr assessment Thyroid nodule Mental Status Date Cognitive Assessment Orientation - [place] ed to time, place, person, situation.
--- OUTSIDE RECORDS SUMMARY | 2025-05-21 03:32 | XMS_ITS | Clinical Summary ---
Author Organization [facility] Address [address] [place] [address] Phone Care Team Providers Care Activities Volunteer Name Role Phone Esau Pascual Primary Care Provider [phone] Allergies No known active allergies Medications ALPRAZolam [...] 1:15 PM CDT Respiratory Rate 18 04/09/2019 1:15 PM CDT Oxygen Saturation 96% 04/09/2019 1:15 PM CDT Inhaled Oxygen Concentration - - Weight 117.1 kg (258 lb 3.2 oz) 04/09/2019 1:15 PM CDT Height 167.6 cm (5' 6) 04/09/2019 1:15 PM CDT Body Mass Index 41.67 04/09/2019 1:15 PM CDT Plan of Treatment Health Maintenance Due Date Last Done Comments Hepatitis C Virus (HCV) Screening 1960 TdaP Immunization 1960 Pap Smear 1981 Cervical Cancer Screening (CCS) 1990 HPV/Cotest 1990 Cologuard 2005 Colonoscopy 2005 Colorectal Cancer Screening 2005 Immunochemical Fecal Occult Blood 2005 Pneumococcal Immunization (5 0+ years) (1 of 1 - PCV) 2010 Zoster Immunization (1 of 2) 2010 SARS-COV-2 Immunization (1 - 2023-25 season) 2024 Influenza Immunization (#1) 2025 07/29/2013 Respiratory Syncytial Virus (RSV) Immunization (Adult) (1 - 1-dose 75+ series) 2035 Hepatitis B Immunization Aged Out No longer eligible based on patient's age to complete this topic Human Papillomavirus (HPV) Immunization Aged Out No longer eligible b ased on patient's age to complete this topic Meningococcal Immunization (ACWY) Aged Out No longer eligible based on patient's age to complete this topic Rotavirus Immunization Aged Out No lo nger eligible based on patient's age to complete this topic Insurance [place]IC[place] [facility] [place] [address] Care Teams Activities Volunteer Relationship Specialty Start Date End Date Esau Pascual [address] [place] [address] PCP - General Family Medicine 02/27/19
--- OUTSIDE RECORDS SUMMARY | 2025-05-21 03:32 | XMS_ITS | Clinical Summary ---
Author Organization [facility] Address [address] [place] [id number] Care Team Providers Care Water Aerobics Instructor Name Role Phone Esau Pascual MD Primary Care Provider + [phone] Veronica Minaya MD Unavailable [phone] Allergies No known active allergies Medications ALPRAZolam [...] long-term current use of insulin ([facility]) One glucometer 1 each 3 Active OneTouch Verio test strips stripIndications :Type 2 diabetes mellitus with hyperglycemia, with long-term current use of insulin ([facility]) Check 2 x daily 100 each [...] long-term current use of insulin ([facility]) Change every 90 days 1 each 3 Active Additional Information Patient not taking.Reported on 03/31/2025 blood-glucose meter,continuous (Dexcom G7 Director Of Architecture) miscIndications: Type 2 diabetes mellitus with hyperglycemia, with long-term current use of insulin ([facility]) Change every 90 days 1 each 4 Active empagliflozin (Jardiance) 25 mg tabletIndication s:Type 2 diabetes mellitus with hyperglycemia, with long-term current use of insulin ([facility]) Take one tablet by mouth daily 90 tablet 3 5 Active atorvastatin (LIPITOR) 40 mg tabletIndication s:Hyperlipidemia associated with type 2 diabetes mellitus (HCC) Take 1 tablet (40 mg total) by mouth daily 90 tablet 5 03/31/20 26 Active insulin glargine (LANTUS) 100 unit/mL (3 mL) pen for injectionIndicat ions:Type 2 diabetes mellitus with hyperglycemia, with long-term current use of insulin ([facility]) Inject 45 Units under the skin daily 40 mL 5 03/31/20 26 Active HumaLOG 200 unit/mL (3 mL) pen for injectionIndicat ions:type 2 diabetes mellitus Inject 0.07-0.12 mL (14-24 Units total) under the skin 3 (three) times a day with meals ( Max daily dose 72 units ) 33 mL 5 03/31/20 26 Active blood-glucose sensor (Dexcom G7 Sensor) deviceIndication s:Type 2 diabetes mellitus with hyperglycemia, with long-term current use of insulin ([facility]) CHANGE SENSOR EVERY 10 DAYS 3 each 5 Active pen needle, diabetic (BD Ultra-Fine Short Pen Needle) 31 gauge x 5/16 needleIndication s:Type 2 diabetes mellitus with hyperglycemia, with long-term current use of insulin (HCC) USE DAILY DIRECTED 100 each 3 5 Active methIMAzole (TAPAZOLE) 10 mg tabletIndication s:Hyperthyroidis m Take 1 tablet (10 mg total) by mouth daily 30 tablet 2 5 07/30/20 25 Active Active Problems Problem Noted Date Diagnosed [...] months Assessment & Plan (11/01/2023 10:02 AM DEVELOPMENT ADMINISTRATOR): Chronic, improving control A1c 5.7% Not wearing [...] MALLIKA Daily foot care Advise to see Head Operator for foot callus Follow up in 6 months Assessment & Plan (02/23/2022 12:31 PM CDT): Chronic problem, not at goal. Increase Ozempic to 1 mg. Continue same other medications. She is going to start walking with her granddaughter. Update routine labs today. Assessment & Plan (09/15/2021 3:28 PM DEVELOPMENT ADMINISTRATOR): Chronic condition, improved. Encouraged her to continue [...] months Assessment & Plan (08/16/2020 12:21 PM DEVELOPMENT ADMINISTRATOR): Chronic, uncontrolled , improving control since 12/2019 A1c today - 7.7 % - discussed about DM type 2, - patho physiology, short and shelter complications of uncontrolled DM, diet and exercise [...] 08/16/2020 Assessment & Plan (11/01/2023 10:03 AM DEVELOPMENT ADMINISTRATOR): Pt on Vitamin D replacement therapy Recheck levels, further plans based on it Assessment & Plan (02/23/2022 12:29 PM CDT): Update vitamin D level. Assessment & Plan (01/17/2021 9:12 PM CDT): Restart taking Vitamin D replacement therapy Recheck levels, further plans based on it Assessment & Plan (08/16/2020 12:20 PM DEVELOPMENT ADMINISTRATOR): Very low vitamin D 25 ([place]) levels In december 2019 Start pt on replacement therapy Hypertension associated with diabetes 08/16/2020 Assessment & Plan (07/01/2024 2:22 PM CDT): Chronic, well controlled Continue lisinopril Assessment & Plan (11/01/2023 10:02 AM DEVELOPMENT ADMINISTRATOR): Chronic, well controlled Continue current medication regimen Assessment & Plan (01/15/2023 12:17 PM CDT): Chronic, well controlled Continue current medication regimen Assessment & Plan (02/23/2022 12:28 PM CDT): Controlled on current medications, no changes. Assessment & Plan (09/15/2021 3:24 PM DEVELOPMENT ADMINISTRATOR): Controlled on current medications, no changes. Assessment & Plan (05/09/2021 2:53 PM CDT): Chronic, well controlled Continue current medication regimen Assessment & Plan (01/17/2021 9:10 PM CDT): Chronic, well controlled Continue current medication regimen Assessment & Plan (08/16/2020 12:19 PM DEVELOPMENT ADMINISTRATOR): Chronic, well controlled Continue current medication regimen Hyperlipidemia associated with type 2 diabetes no lutz 08/16/2020 Assessment & Plan (07/01/2024 2:21 PM CDT): C/w Atorvastatin 40 mg oral daily Assessment & Plan (11/01/2023 10:03 AM DEVELOPMENT ADMINISTRATOR): C/w Atorvastatin 40 mg oral daily Assessment & Plan (01/15/2023 12:17 PM CDT): C/w Atorvastatin 40 mg oral daily Assessment & Plan (02/23/2022 12:28 PM CDT): Chronic problem. On statin therapy, no changes. Update lipid panel. Assessment & Plan (09/15/2021 3:24 PM DEVELOPMENT ADMINISTRATOR): Chronic problem. On statin therapy, no changes. Assessment & Plan (05/09/2021 2:53 PM CDT): C/w Atorvastatin 40 mg oral daily Assessment & Plan (01/17/2021 9:09 PM CDT): Reviewed lipid panel results today LLD above goal Change simvastatin to Atorvastatin 40 mg oral daily Assessment & Plan (08/16/2020 12:22 PM DEVELOPMENT ADMINISTRATOR): On statin therapy Tolerating well Morbid obesity [...] weekly Assessment & Plan (11/01/2023 10:03 AM DEVELOPMENT ADMINISTRATOR): Chronic, worsening Counseled on diet and exercise [...] weekly Assessment & Plan (08/16/2020 12:22 PM DEVELOPMENT ADMINISTRATOR): Chronic, worsening Discussed about healthy lifestyle habits [...] plans Assessment & Plan (08/16/2020 12:27 PM DEVELOPMENT ADMINISTRATOR): Reviewed pt last thyroid labs from Low [...] Increase Ozempic. Body mass index 40.0-44.9, adult (CMS/HCC) 02/23/2022 07/01/2024 Encounters Date Type Department Care Team Description 05/01/2025 Results Follow-Up [facility] Specialists of [address] [phone] Veronica Minaya MD TSH, T4, free, T3, free, Additional followed-up results: 4 04/27/2025 8:30 AM CDT Lab [facility] Outpatient Lab at [address] [phone] 04/27/2025 8:28 AM CDT - 04/27/2025 11:59 PM CDT Hospital Encounter [address] [address] Hyperthyroidism Discharge Disposition: Discharge to home or self care 04/22/2025 Telephone [facility] Diabetes and Endocrinology [address] [place] [phone] Veronica Minaya MD Appointment/Schedules 04/14/2025 Telephone [facility] of [address] [phone] Veronica Minaya MD Ultra Sound 04/06/2025 Orders Only [facility] Diabetes and Endocrinology [address] [place] [phone] ProviderPamela MD 04/01/2025 [facility]phone [facility] [address] [phone] Veronica Minaya MD 03/31/2025 11:00 AM CDT Office Visit [facility] of [address] [phone] Veronica Minaya MD Type 2 diabetes mellitus with hyperglycemia, with long-term current use of insulin (HCC) (Primary Dx); Hypertension associated with diabetes (HCC); Hyperlipidemia associated with type 2 diabetes mellitus (HCC); Morbid obesity with BMI of 40.0-44.9, adult (HCC) from Last 3 Months Immunizations Immunization Administration [...] on file Legal Sex Female 1:58 AM DEVELOPMENT ADMINISTRATOR Gender Identity Not on file Sexual Orientation Not on file Obstetrics History Last Filed Vital Signs Vital Sign Reading Time Taken Comments Blood Pressure 130/70 03/31/2025 11:13 AM CDT Pulse 97 03/31/2025 11:13 AM CDT Temperature - - Respiratory Rate 15 03/31/2025 11:13 AM CDT Oxygen Saturation - - Inhaled Oxygen Concentration - - Weight 105.2 kg (232 lb) 03/31/2025 11:13 AM CDT Height 162.6 cm (5' 4) 03/31/2025 11:13 AM CDT Body Mass Index 39.82 03/31/2025 11:13 AM CDT Plan of Treatment Health Maintenance [...] 05/09/2022 05/09/2021, 01/17/2021, 08/16/2020 Influenza Vaccine (#1) 2025 5, 07/29/2013, 05/15/2010 Foot Exam 07/01/2025 07/01/2024, 10/15, 01/15/2023, Additional history exists Hemoglobin A1C 09/30/2025 03/31/2025, 05/0 03/2025, 07/01/2024, Additional history exists Albumin Creatinine Ratio, Urine 02/17/2026 02/17/2025, 11/01/2023, 10/23/2022, Additional history exists Lipid Panel 02/17/2026 02/17/2025, 10/15, 10/23/2022, Additional history exists Dilated Eye Exam 03/05/2026 03/05/2024 eGFR 04/27/2026 04/27/2025, 05/0 03/2025, 11/01/2023, Additional history exists Procedures Procedure Name Priority Date/Time Associated Diagnosis Comments EGFR Routine 04/27/2025 8:28 AM CDT Hyperthyroidism COMPREHENSIVE METABOLIC PANEL Routine 04/27/2025 8:28 AM CDT Hyperthyroidism TSH RECEPTOR ANTIBODY Routine 04/27/2025 8:28 AM CDT Hyperthyroidism THYROID PEROXIDASE ANTIBODY Routine 04/27/2025 8:28 AM CDT Hyperthyroidism THYROID STIMULATING IMMUNOGLOBULIN Routine 04/27/2025 8:28 AM CDT Hyperthyroidism T3, FREE Routine 04/27/2025 8:28 AM CDT Hyperthyroidism T4, FREE Routine 04/27/2025 8:28 AM CDT Hyperthyroidism TSH Routine 04/27/2025 8:28 AM CDT Hyperthyroidism POCT HEMOGLOBIN A1C Routine 03/31/2025 1 1:15 AM CDT Type 2 diabetes mellitus with hyperglycemia, with long-term current use of insulin (HCC) POCT GLUCOSE Routine 03/31/2025 11:15 AM CDT Type 2 diabetes mellitus with hyperglycemia, with long-term current use of insulin (HCC) TSH REFLEX TO T4 Routine 03/16/2025 THYROGLOBULIN Routine 03/16/2025 THYROID STIMULATING IMMUNOGLOBULIN Routine 03/16/2025 LIPID PANEL Routine 02/17/2025 8:30 AM CDT ALBUMIN CREATININE RATIO, URINE Routine 02/17/2025 8:30 AM CDT DIABETES EYE EXAM Routine 03/05/2024 9:30 AM CDT from Last 3 Months or Most Recently Relevant to Health Maintenance Results * eGFR (04/27/2025 8:28 AM CDT) eGFR >90 >=60 mL/min/1. 73 m2 Comment: Interpretive Data Reference Interval Normal >/= [...] interpretive data was last reviewed 2021. Blood 04/27/2025 8:28 AM CDT 04/27/2025 2:53 PM CDT Veronica Diaz MD LAB BLOOD ORDERABLE S Final Result [facility] [address] [address] Department [place] [address] * TSH receptor antibody (04/27/2025 8:28 AM CDT) TSH receptor ab <1.10 0.00 - 1.75 IUnits/L [facility] Comment: ADDITIONAL INFORMATION At a decision limit of 1.75 IU/L, this assay has 97% sensitivity and 99% specificity for detection of Graves' disease. In healthy individuals and in patients with thyroid disease without diagnosis of Graves' disease, the upper limit of anti-TSHR values are 1.22 IU/L and 1.58 IU/L, respectively (97.5th percentiles). Test Performed by: [facility] - [address] [address] Flight Purser: Yarely Cabrera Ph.D.; CLIA# [id number] Blood 04/27/2025 8:28 AM CDT 04/27/2025 2:47 PM CDT us Veronica Diaz MD LAB BLOOD ORDERABLE S Final Result Performing Organization Address City/[facility]/[place] [address] [address] [place] [address] [facility] * Thyroid peroxidase antibody (TPO) (04/27/2025 8:28 AM CDT) Anti Thyroid Peroxidase <30 <=34 IUnits/mL Comment: ATPO Interpretive Data Results may be up to 28% higher in patients receiving Itraconazole. Current interpretive data was last revised 2021. Testing performed by: [facility], [address] [place] [facility], [place]., [address] Blood 04/27/2025 8:28 AM CDT 04/28/2025 10:07 AM CDT Veronica Diaz MD LAB BLOOD ORDERABLE S Final Result Performing Organization Address [facility] Co de Phone Number [facility] JOYCELYN [address] [address] [place] [place] [address] * (ABNORMAL) Thyroid stimulating immunoglobulin (04/27/2025 8:28 AM CDT) Pathologist [facility] TSIG 2.2(H) <=1.3 [facility] ref [facility] Comment: Test Performed by: [place] [address] Flight Purser: Yarely Cabrera Ph.D.; CLIA# [id number] Blood 04/27/2025 8:28 AM CDT 04/28/2025 1:29 PM CDT us Veronica Diaz MD LAB BLOOD ORDERABLE S Final Result Performing Organization Address City/[facility]/ZIP Co de Phone Number [facility] HIRSCH [address] [address] [address] [facility] * (ABNORMAL) T3, free (04/27/2025 8:28 AM CDT) Pathologist [facility] Free T3 5.4(H) 2.0 - 4.4 pg/mL Blood 04/27/2025 8:28 AM CDT 04/27/2025 2:47 PM CDT Veronica Diaz MD LAB BLOOD ORDERABLE S Final Result Performing Organization Address [facility]/ZIP Co de Phone Number NEHEMIASROMEO HIRSCH [address] [address] [place] [address] * (ABNORMAL) TSH (04/27/2025 8:28 AM CDT) Thyroid Stimulating Hormone <0.01(L) 0.30 - 4.20 mcIUnit/mL Blood 04/27/2025 8:28 AM CDT 04/27/2025 2:47 PM CDT Veronica Diaz MD LAB BLOOD ORDERABLE S Final Result Performing Organization Address [facility] Co de Phone Number [facility] JOYCELYN [address] [address] [place] [address] * (ABNORMAL) T4, free (04/27/2025 8:28 AM CDT) Free T4 2.03(H) 0.90 - 1.70 ng/dL Blood 04/27/2025 8:28 AM CDT 04/27/2025 2:47 PM CDT Veronica Diaz MD LAB BLOOD ORDERABLE S Final Result Performing Organization Address City/[facility] Co de Phone Number NEHEMIASROMEO HIRSCH [address] [address] [place] [address] * (ABNORMAL) Comprehensive metabolic panel (04/27/2025 8:28 AM CDT) Sodium 137 135 - 145 mmol/L Potassium, pl 4.1 3.3 - 4.9 mmol/L [facility] Chloride 105 97 - 110 mmol/L [facility] CO2 20(L) 22 - 32 mmol/L [facility] Anion gap 12 2 - 15 mmol/L [facility] BUN 12 6 - 25 mg/dL [facility] Creatinine 0.60 0.60 - 1.10 mg/dL [facility] Glucose 230(H) 70 - 199 mg/dL [facility] Comment: Interpretive Data Fasting glucose >/= 126 mg/dl is diagnostic for diabetes. Fasting is defined as no caloric intake for at least 8 hours. Fasting glucose between 100 mg/dl to 125 mg/dl is diagnostic of prediabetes. In a patient with classic symptoms of hyperglycemia or hyperglycemic crisis, a random glucose >/= 200 mg/dl is diagnostic for diabetes. In the absence of unequivocal hyperglycemia, results should be confirmed by repeat testing. The classification and Diagnosis of Diabetes Diabetes Care 202; 46: S19-S40. Current interpretive data was last revised 2022. Calcium 9.9 8.5 - 10.3 mg/dL [facility] Bilirubin, total 0.6 0.1 - 1.2 mg/dL [facility] Protein, pl 7.0 6.5 - 8.5 g/dL [facility] Albumin 4.1 3.5 - 5.0 g/dL [facility] Alk phos 125 40 - 130 Units/L [facility] ALT 33 7 - 45 Units/L [facility] AST 41 10 - 45 Units/L [facility] Blood 04/27/2025 8:28 AM CDT 04/27/2025 2:47 PM CDT us Veronica Diaz MD LAB BLOOD ORDERABLE S Final Result [facility] [address] [address] Department [place] [address] * (ABNORMAL) POCT hemoglobin A1c (03/31/2025 11:15 AM CDT) Hemoglobin A1C, POC 10.0(A) 4.0 - 5.6 % Blood 03/31/2025 11:1 5 AM CDT Veronica Diaz MD POINT OF CARE TEST ORDERABLES Final Result * POCT glucose (03/31/2025 11:15 AM CDT) Glucose Blood, POC 329 Normal Fasting 70 - 100, Random <200 mg/dL Blood 03/31/2025 11:1 5 AM CDT Veronica Diaz MD POINT OF CARE TEST ORDERABLES Final Result * TSH reflex to T4 (03/16/2025) 03/16/2025 Impressions EXTERNAL LAB - 04/02/2025 8:50 AM CDT <0.015 reference 0.465-4.68 Result [facility] Historical Provider MD LAB BLOOD ORDERABLES Tess l Result EXTERNAL LAB * (ABNORMAL) Thyroglobulin (03/16/2025) Pathologist [facility] Scribed Thyroglobulin 644(A) 0 - 0 ng/mL EXTERNAL LAB 03/16/2025 Result [facility] Historical Provider MD LAB BLOOD ORDERABLES Tess l Result EXTERNAL LAB * Thyroid stimulating immunoglobulin (03/16/2025) Blood 03/16/2025 Impressions EXTERNAL LAB - 04/02/2025 8:52 AM CDT 182 Reference <140%baseline Result [facility] Historical Provider MD LAB BLOOD ORDERABLES Tess l Result EXTERNAL LAB * Albumin Creatinine Ratio, Urine (02/17/2025 8:30 AM CDT) SCRIBED Creatinine, Urine 53 20 - 275 [facility] SCRIBED Microalbumin 0.3 NA - NA [facility] SCRIBED Microalb/Creat Ratio 6 <30 - NA [facility] Urine 02/17/2025 8:30 AM CDT us Historical Provider LAB URINE ORDERABLES Edit ed Result - Final [facility] * (ABNORMAL) Lipid panel (02/17/2025 8:30 AM CDT) SCRIBED Cholesterol, Total 123 30 - 199 mg/dL [facility] SCRIBED Triglycerides 122 <=149 mg/dL [facility] SCRIBED HDL 39(A) >=40 mg/dL [facility] SCRIBED LDL 64 <=129 mg/dL [facility] Scribed Non-HDL Cholesterol 84 NONE mg/dL [facility] SCRIBED Total Cholesterol/HDL Ratio 123 NONE [facility] Blood 02/17/2025 8:30 AM CDT Historical Provider LAB BLOOD ORDERABLES Edit ed Result - Final Performing Organization Address City/[facility]/ZIP Co de Phone Number [facility] * HM DIABETES EYE EXAM (03/05/2024 9:30 AM CDT) us Historical Provider HEALTH MAINTENANCE Edited Result - Final from Last 3 Months or Most Recently Relevant to Health Maintenance Insurance [facility] MEDICARE ADVANTAGE [facility] MEDICARE ADVANTAGE Care Teams Water Aerobics Instructor Relationship Specialty Start Date End Date Esau Pascual MD PCP - General 05/01/11 [place] [id number] [facility] [address] [place] [address] Consulting Physician Endocrinology 03/07/21
[2025-05-21 08:37] VITALS: BP 142/85; PULSE 91; RESP 18; TEMP 36.2; O2SAT 99
[2025-05-21] MEDS: LACTATED RINGERS 1,000 ML 150 ML IV CONT (08:48)
--- NOTE | 2025-05-21 09:42 | WPDANESEPPF ---
Anes - Initial Pre Proc Eval Procedure: Operation Date: 05/21/25 09:30 Proposed Procedures p Colonoscopy - Aidan Gavin MD Date/Time: 05/21/25 09:42 Surgeon: Aidan Gavin MD Pre Op Diagnosis: IBS Patient Data Age: 64 Gender: F Height: 1.63 m Weight: 98.2 kg Last Vital Signs Temp 36.2 C L 05/21/25 08:37 Pulse 91 05/21/25 08:37 Resp 18 05/21/25 08:37 BP 142/85 H 05/21/25 08:37 Pulse Ox 99 05/21/25 08:37 O2 Del Method Room Air 05/21/25 08:37 Allergies Allergy/AdvReac Type Severity Reaction Status Date / Time No Known Allergies Allergy Verified 05/21/25 08:33 Home Medications ?Medication ?Instructions ?Recorded ?Confirmed ?Type atorvastatin 40 mg tablet 40 mg PO DAILY 03/08/23 05/21/25 History empagliflozin 25 mg tablet 25 mg PO DAILY 03/08/23 05/21/25 History (Jardiance) glimepiride 4 mg tablet 4 mg PO QAM 03/08/23 05/19/25 History insulin glargine 100 unit/mL (3 35 unit subcut QAM 03/08/23 05/21/25 History mL) subcutaneous pen (Lantus Solostar U-100 Insulin) lisinopril 20 mg tablet 20 mg PO DAILY 03/08/23 05/21/25 History naloxone 4 mg/actuation nasal spray 4 mg intranasal Q2-3M PRN opioid 03/08/23 05/19/25 History overdose semaglutide 0.25 mg or 0.5 mg (2 0.25 mg subcut WEEKLY 03/08/23 05/19/25 History mg/1.5 mL) subcutaneous pen injector (Ozempic) sertraline 100 mg tablet 100 mg PO DAILY 03/08/23 05/21/25 History alprazolam 1 mg tablet 1 mg PO TID 05/19/25 05/21/25 History hydrocodone 7.5 mg-acetaminophen 1 tablet PO Q8H PRN pain 05/19/25 05/21/25 History 325 mg tablet meloxicam 15 mg tablet 15 mg PO DAILY 05/19/25 05/21/25 History methimazole 1 tablet PO DAILY 05/19/25 05/21/25 History omeprazole 20 mg capsule,delayed 20 mg PO DAILY 05/19/25 05/21/25 History release tirzepatide 5 mg/0.5 mL 5 mg subcut WEEKLY 05/19/25 05/21/25 History subcutaneous pen injector (Mounjaro) Laboratory Tests 05/21/25 08:49 POC Capillary Glucose 117 H mg/dl (65-105) Patient hx anesthesia problems: none Family hx anesthesia problems: none Results Review: All pre-operative results and documents have been reviewed as part of the pre-operative evaluation. [facility] Social History Social History Smoking status: Former smoker Tobacco type: cigarettes Alcohol intake: never Substance use: never Substance use type: does not use Anes - Eval Final PreProcedure Day of Procedure 05/21/25 09:42 Patient weight: obese Heart: regular rate and rhythm Lungs: decreased breath sounds Airway: Mallampati scale class III Neurological: alert and oriented Last oral intake: >/= 8 hours ASA classification: III Emergent: no Anesthetic plan: proceed Anesthesia type and monitoring: general GIVS and standard monitoring Results Review: All pre-operative results and documents have been reviewed as part of the pre-operative evaluation. Informed Consent: The patient's anesthetic plan and its attendant risks and benefits were discussed with the patient/family/POA. Questions were solicited and answers provided to the satisfaction of the patient/family/POA.
--- NOTE | 2025-05-21 09:43 | PM.IMHP ---
H&P: HPI History of Present Illness Date/Time: 05/21/25 09:43 Chief Complaint: Screening colonoscopy Narrative: This is the patient's 2nd colonoscopy. There are no GI symptoms and there is no family history of colorectal cancer. Review of Systems Review of Systems: All systems reviewed & are unremarkable except as noted in HPI and below PMFSH Social History Social History Smoking status: Former smoker Tobacco type: cigarettes Alcohol intake: never Substance use: never Substance use type: does not use Meds Home Medications and Allergies Home Medications ?Medication ?Instructions ?Recorded ?Confirmed ?Type atorvastatin 40 mg tablet 40 mg PO DAILY 03/08/23 05/21/25 History empagliflozin 25 mg tablet 25 mg PO DAILY 03/08/23 05/21/25 History (Jardiance) glimepiride 4 mg tablet 4 mg PO QAM 03/08/23 05/19/25 History insulin glargine 100 unit/mL (3 35 unit subcut QAM 03/08/23 05/21/25 History mL) subcutaneous pen (Lantus Solostar U-100 Insulin) lisinopril 20 mg tablet 20 mg PO DAILY 03/08/23 05/21/25 History naloxone 4 mg/actuation nasal spray 4 mg intranasal Q2-3M PRN opioid 03/08/23 05/19/25 History overdose semaglutide 0.25 mg or 0.5 mg (2 0.25 mg subcut WEEKLY 03/08/23 05/19/25 History mg/1.5 mL) subcutaneous pen injector (Ozempic) sertraline 100 mg tablet 100 mg PO DAILY 03/08/23 05/21/25 History alprazolam 1 mg tablet 1 mg PO TID 05/19/25 05/21/25 History hydrocodone 7.5 mg-acetaminophen 1 tablet PO Q8H PRN pain 05/19/25 05/21/25 History 325 mg tablet meloxicam 15 mg tablet 15 mg PO DAILY 05/19/25 05/21/25 History methimazole 1 tablet PO DAILY 05/19/25 05/21/25 History omeprazole 20 mg capsule,delayed 20 mg PO DAILY 05/19/25 05/21/25 History release tirzepatide 5 mg/0.5 mL 5 mg subcut WEEKLY 05/19/25 05/21/25 History subcutaneous pen injector (Guillermo) Allergies Allergy/AdvReac Type Severity Reaction Status Date / Time No Known Allergies Allergy Verified 05/21/25 08:33 Vital Signs Vital Signs - 24 hr 05/21/25 08:37 Temperature 97.2 F L Pulse Rate 91 Respiratory Rate 18 Blood Pressure 142/85 H Pulse Oximetry 99 Oxygen Delivery Room Air Exam Const: General: cooperative and healthy appearing Resp: Effort & Inspection: normal respiratory effort and able to speak in complete sentences Auscultation: clear to auscultation bilaterally Cardio: Rate: regular rate Rhythm: regular rhythm GI: Inspection: normal to inspection GI Palp: No No hepatosplenomegaly present Auscultation: normal bowel sounds Rectal Exam: deferred Skin: General skin exam: normal color Psych: Appearance: grossly normal Mental Status: mental status grossly normal Assessment and Plan Assessment and plan (1) Encounter for screening colonoscopy: Code(s): Z12.11 - Encounter for screening for malignant neoplasm of colon Status: Acute Assessment and Plan: The patient is deemed a good candidate for the procedure. Consent signed. Will proceed.
--- NOTE | 2025-05-21 10:05 | S_PTH ---
PATIENT: Jade Hunter LOC: [facility] U#:[id number] AGE/SX: 64/F ROOM: RE05/21/[address]: Aidan Gavin MD : [id number] BED: DIS: 05/21/2025 SPEC #: [id number] RECD: 05/21/25 12:08 STATUS: GIDEON REQ #: [id number] NEW: 05/21/25 10:[address]: Aidan Gavin DEPT: [facility] Surgical RECD BY: Aga Lewis ENTERED: 05/21/25 12:08 SP TYPE: Surgical OTHR DR: Esau Pascual MD Tissues: A - Colon Polypectomy Procedures: Hematoxylin and Eosin Stain Gross and Microscopic Level 4
[2025-05-21 10:09] VITALS: BP 143/81; PULSE 75; RESP 18; O2SAT 100
[2025-05-21 10:26] VITALS: BP 132/78; PULSE 74; RESP 18; O2SAT 100
[2025-05-21 10:27] VITALS: BP 126/78; PULSE 74; RESP 18; O2SAT 100
== END 2025-05-21 10:39 | disposition home or self-care (01) ==
PROVIDERS: PCP Emergency Medicine; Referring Provider Internal Medicine Endocrinology, Diabetes & Metabolism; Visit Provider Internal Medicine Gastroenterology
PROC: 0DJD8ZZ Inspection of Lower Intestinal Tract, Via Natural or Artificial Opening Endoscopic (ICD-10-PCS; CPT 45378; principal; 2025-05-21 09:30)
DX: Z12.11 Encounter for screening for malignant neoplasm of colon (principal); D12.3 Benign neoplasm of transverse colon; E66.9 Obesity, unspecified; Z68.37 Body mass index [BMI] 37.0-37.9, adult; Z79.84 Long term (current) use of oral hypoglycemic drugs; Z79.4 Long term (current) use of insulin; Z79.85 Long-term (current) use of injectable non-insulin antidiabetic drugs; Z79.891 Long term (current) use of opiate analgesic; Z87.891 Personal history of nicotine dependence
CPT/HCPCS: 45385; 82948; 88305; J2003; J2704; J7120

== ENCOUNTER 2025-06-24 09:20 | Outpatient (CLI) | payer MEDICARE, MEDICAID, SELFPAY ==
--- NOTE | ~2025-06-24 | US_ITS ---
EXAMINATION: US abdomen complete DATE: 06/24/2025 09:59 INDICATION: Generalized abdominal pain. TECHNIQUE: Multiple grayscale and Doppler ultrasound images of the abdomen were obtained. COMPARISON: Ultrasound 04/09/2013 FINDINGS: Abdominal aorta is normal in caliber. The inferior vena cava is normal. The visualized portions of the head, body, and tail of the pancreas are normal. The liver is normal without focal lesion. There is normal flow in main portal vein. The gallbladder is absent. The common duct is normal and measures 4 mm. The kidneys are normal in size. The spleen is normal in size. IMPRESSION: 1. Normal complete abdomen ultrasound status post cholecystectomy. Reviewed, dictated and finalized at location E.
== END 2025-06-24 09:21 | disposition home or self-care (01) ==
PROVIDERS: PCP Emergency Medicine; Visit Provider Emergency Medicine
DX: R10.84 Generalized abdominal pain (principal)
CPT/HCPCS: 76700